=== PATIENT | female | born 1970 | race Hispanic/Latino ===

== ENCOUNTER 2023-09-19 11:20 | Emergency (ER) | payer OTHER, SELFPAY ==
--- OUTSIDE RECORDS SUMMARY | 2023-09-19 11:26 | XMS REPORT | Continuity of Care Document ---
Author Name Unknown Address [address] [place] [address] [facility] [address] [place] [address] Care Team Providers Care Classics Professor Name Role Phone NO, PCP Primary Care Physician Unavailab BYRON Olsen Attending Clinician Unavailable JOSE LUIS BOWLING Attending Clinician UnavailJose Luis Castañeda Attending Clinician [phone] Juani Flores MD Attending Clinician [phone] Soumya Schaeffer LVN Attending Clinician [phone] Juani Leal Attending Clinician [phone] Juan Amaya MD Attending Clinician [phone] JUAN AMAYA Attending Clinician Unavailable Ros Moore MD Attending Clinician [phone] Delfin Singleton Attending Clinician Unavailable Juan Amaya MD Admitting Clinician [phone] JUAN AMAYA Admitting Clinician Unavailable Payers Payer Name Policy Type Policy Number Effective Date Expirati on Date Source Problems Condition Name Condition Details Condition Category Status Onset Date Resolution Date Last Treatment Date Treating Clinician Comments Source Complicate d UTI (urinary tract infection) Complicate d UTI (urinary tract infection) Disease Active 2- 00:00: 00 [facility] Abnormal uterine bleeding (AUB) Abnormal uterine bleeding (AUB) Disease Active 2- 00:00: 00 [facility] Anemia, unspecifie d type Anemia, unspecifie d type Disease Active 2- 00:00: 00 [facility] Fall Problem Active [facility] Sprain of right wrist Problem Active [facility] Allergies, Adverse Reactions, Alerts Allergy Name Allergy Type Status Severity Reaction(s) Onset Date Inactive Date Treating Clinician Comments Source Penicill in Allergy to substanc e Active Severe ANGIO EDEMA 2 00:00: 00 [facility] Penicill ins Propensi ty to adverse reaction s Active Anaphylaxis 03-19 00:00: 00 [facility] Penicill ins Propensi ty to adverse reaction s Active Anaphylaxis 03-19 00:00: 00 [facility] PENICILL INS Drug Class Active Anaphylaxis 03-19 00:00: 00 [facility] Penicill ins DA Active [facility] NO KNOWN ALLERGIE S Drug Class Active [facility] Social History Social Habit Start Date Stop Date Quantity Comments Source History of tobacco use [facility] Exposure to SARS-CoV-2 (event) 2022-01-25 00:00:00 2022-02-04 21:00:00 Not sure [facility] Alcohol intake 2021-03-24 00:00:00 2021-03-24 00:00:00 Ex-drinker (finding) [facility] Tobacco use and exposure 2021-03-20 00:00:00 2021-03-20 00:00:00 Smokeless tobacco non-user [facility] Sex Assigned At 1970 00:00:00 1970 00:00:00 Female [facility] Smoking Status Start Date Stop Date Source Never smoked tobacco (finding) [facility] Medications Ordered Medication Name Filled Medication Name Start Date Stop Date Current Medication? Ordering Clinician Indication Dosage Frequency Signature (SIG) Comments Components Source Hydrocodone Bit/Acetami nophen (Hydrocodon -Acetaminop h 7.5-325) 7.5 Mg-325 Mg TABLET Hydrocodone Bit/Acetami nophen (Hydrocodon -Acetaminop h 7.5-325) 7.5 Mg-325 Mg TABLET 03-23 23:04: 00 Yes 1 Every 6 Hours as needed for Pain [facility] Diclofenac Sodium Diclofenac Sodium 03-23 23:01: 00 Yes 1 Three Times Daily With Meals for Pain/Infla mmation [facility] erythromyci n 5 mg/gram (0.5 %) ophthalmic ointment 2021-02 00:00: 00 02-12 05:59 :00 No [id number] .5[in_u s] Place 0.5 Inches in both eyes in the morning and 0.5 Inches at noon and 0.5 Inches in the evening. Do all this for 7 days. Continue until you follow up with eye doctor. [facility] metroNIDAZO LE 500 mg tablet 03-25 00:00: 00 03-26 05:59 :00 No [id number] 2000mg Take 4 tablets by mouth once now for 1 dose. Do not drink alcohol while taking this medication . [facility] potassium chloride in water 10 mEq/100 mL RTU 10 mEq 03-22 17:00: 00 03-22 19:13 :00 No 10meq 10 mEq, IV Piggyback, Q1H, 2 doses, First dose on 03/22/21 at 1100, Last dose on 03/22/21 at 1200, Administer over 60 Minutes, 100 mL [facility] KCL (KLOR-CON M20) tablet 40 mEq 03-22 15:45: 00 03-23 00:00 :06 No 40meq 40 mEq, Oral, BID, First dose on 03/22/21 at 0945, Until Discontinu ed, Routine [facility] ferrous sulfate 325 mg (65 mg iron) tablet 03-22 00:00: 00 04-22 04:59 :00 No [id number] 325mg Take 1 tablet by mouth 2 (two) times daily for 30 days. [facility] lactobacill us acidophilus 03-22 00:00: 00 04-02 05:59 :00 No [id number] 1mg Take 2 tablets by mouth 2 (two) times daily for 10 days. [facility] levoFLOXaci n (LEVAQUIN) 750 mg tablet 03-22 00:00: 00 03-26 05:59 :00 No [id number] 750mg Take 1 tablet by mouth every 24 (twenty-fo ur) hours for 3 days. [facility] water for irrigation irrigation solution 03-21 20:26: 00 03-21 22:44 :27 No PRN, Starting on Wed03/21/21 at 1426, Until Wed03/21/21 at 1644, Routine, Intra-op [facility] simethicone (GAS RELIEF (SIMETHICON E)) 40 mg/0.6 mL drops 03-21 20:26: 00 03-21 22:44 :27 No PRN, Starting on Wed03/21/21 at 1426, Until Wed03/21/21 at 1644, Routine, Intra-op [facility] sodium phosphates (READY-TO-U SE ENEMA) 19-7 gram/118 mL enema 1 Enema 03-21 15:45: 00 03-21 15:01 :00 No 1{enema } 1 Enema, Rectal, ONCE, 1 dose, On Wed03/21/21 at 0945, Routine [facility] sodium phosphate 30 mmol in NaCl 0.9% (NS) 250 mL piggyback 03-21 14:45: 00 03-22 02:44 :00 No 30mmol 30 mmol, IV Piggyback, ONCE, 1 dose, On Wed03/21/21 at 0845, Administer over 4 Hours, 250 mL [facility] iron sucrose (VENOFER) 300 mg in NaCl 0.9% (NS) 250 mL infusion 03-21 14:45: 00 03-22 01:15 :00 No 300mg 300 mg, IV Infusion, ONCE, Administer over 2.5 Hours, On Wed03/21/21 at 0845, For 1 dose [facility] diphenhydrA MINE (BENADRYL) injection 25 mg 03-21 14:00: 00 03-21 15:54 :00 No 25mg 25 mg, Slow IV Push, ONCE, 1 dose, On Wed03/21/21 at 0800, Routine [facility] diphenhydrA MINE (BENADRYL) tablet 25 mg 03-21 05:49: 59 03-23 00:00 :06 No 25mg 25 mg, Oral, Q4HPRN, Starting on Alycia 03/20/21 at 2349, Until 03/22/21 at 1800, Routine, Itching [facility] levoFLOXaci n in D5W (LEVAQUIN) 750 mg/150 mL Piggyback 750 mg 03-21 05:00: 00 03-23 00:00 :06 No 750mg 750 mg, IV Piggyback, Q24H ABX, First dose on Wed03/20/21 at 2300, Until Discontinu ed, Administer over 90 Minutes, 150 mL
Reas on for Anti-Infec tive: Empiric Therapy for Suspected Infection& lt;br>Empi zack Therapy Site: Urine
D uration of therapy: 7 days [facility] bisacodyL (DULCOLAX) tablet 10 mg 03-21 02:00: 00 03-21 03:00 :00 No 10mg 10 mg, Oral, ONCE AT 1999, 1 dose, On Wed03/20/21 at 2000, Routine [facility] bisacodyL (DULCOLAX) tablet 10 mg 03-20 22:45: 00 03-20 23:17 :00 No 10mg 10 mg, Oral, ONCE, 1 dose, On Alycia 03/20/21 at 1645, Routine [facility] peg-electro lyte soln (GOLYTELY) 236-22.74-6 .74 -5.86 gram solution 4,000 mL 03-20 22:45: 00 03-20 23:17 :00 No 4000mL 4,000 mL, Oral, ONCE, 1 dose, On Alycia 03/20/21 at 1645, Routine [facility] iohexol (OMNIPAQUE 350 BULK-150 mL) injection 120 mL 03-20 16:30: 00 03-20 16:30 :00 No [id number] 100 120mL 120 mL, Intravenou s, ONCE, 1 dose, On Alycia 03/20/21 at 1030, Routine [facility] diphenhydrA MINE (BENADRYL) injection 50 mg 03-20 15:45: 00 03-20 14:56 :00 No 50mg 50 mg, Slow IV Push, ONCE, 1 dose, On Alycia 03/20/21 at 0945, Routine [facility] polyethylen e glycol 3350 powder 17 g 03-20 15:00: 00 03-22 14:40 :00 No 17g 17 g, Oral, DAILY, 2 doses, First dose on Wed03/20/21 at 0900, Last dose on Wed03/21/21 at 0900, Routine [facility] pantoprazol e (PROTONIX) injection 40 mg 03-20 14:30: 00 03-23 00:00 :06 No 40mg 40 mg, Slow IV Push, Q24H, First dose on Alycia 03/20/21 at 0830, Until Discontinu ed [facility] NaCl 0.9% (NS) IV infusion 1,000 mL 03-20 14:15: 00 03-23 00:00 :06 No 1000mL at 100 mL/hr, IV Infusion, CONTINUOUS , Starting on Alycia 03/20/21 at 0815, Until 03/22/21 at 1800, Routine [facility] sennosides (SENOKOT) tablet 8.6 mg 10 14:00: 00 03-23 00:00 :06 No 8.6mg 8.6 mg, Oral, BID, First dose on Alycia 03/20/21 at 0800, Until Discontinu ed, [facility] acidophilus [facility] 1 mg 03-20 14:00: 00 03-23 00:00 :06 No 1mg 1 mg, Oral, BID, First dose on Alycia 03/20/21 at 0800, Until Discontinu ed, Routine [facility] docusate (COLACE) capsule 100 mg 03-20 14:00: 00 03-23 00:00 :06 No 100mg 100 mg, Oral, BID, First dose on Alycia 03/20/21 at 0800, Until Discontinu ed, Routine [facility] levoFLOXaci n in D5W (LEVAQUIN) 250 mg/50 mL Piggyback 250 mg 03-20 09:30: 00 03-20 11:34 :00 No 250mg 250 mg, IV Piggyback, ONCE, 1 dose, On Alycia 03/20/21 at 0330, Administer over 60 Minutes, 50 mL
Reas on for Anti-Infec tive: Empiric Therapy for Suspected Infection< br>Empiric Therapy Site: Urine
D uration of therapy: 7 days [facility] ondansetron (ZOFRAN (PF)) injection 4 mg 03-20 08:25: 32 03-23 00:00 :06 No 4mg 4 mg, Slow IV Push, Q6HPRN, Starting on Alycia 03/20/21 at 0225, Until 03/22/21 at 1800, Routine, Nausea and Vomiting (N/V) [facility] levoFLOXaci n in D5W (LEVAQUIN) 500 mg/100 mL Piggyback 500 mg 03-20 05:00: 00 03-20 05:03 :00 No 500mg 500 mg, IV Piggyback, ONCE, 1 dose, On Wed03/19/21 at 2300, Administer over 60 Minutes, 100 mL
Reas on for Anti-Infec tive: Documented Infection< br>Documen dasha Infection Site: Urine
D uration of Therapy: Other (see Comments) [facility] Vital Signs Vital Name Observation Time Observation Value Comments S ource Oxygen saturation by Pulse oximetry 2022-03-23 23:27:00 100 /min [facility] BP Diastolic 2022-03-23 23:27:00 81 mm[Hg] [facility] Height 2022-03-23 21:38:00 157.179664 cm [facility] Weight 2022-03-23 21:38:00 68.919176 kg [facility] BMI (Body Mass Index) 2022-03-23 21:38:00 27.4 kg/m2 [facility] Systolic blood pressure 2022-02-05 03:03:00 137 mm[Hg] [facility] Diastolic blood pressure 2022-02-05 03:03:00 89 mm[Hg] [facility] Heart rate 2022-02-05 03:03:00 67 /min [facility] Body temperature 2022-02-05 03:03:00 36.61 Elle [facility] Respiratory rate 2022-02-05 03:03:00 18 /min [facility] Body weight 2022-02-05 03:03:00 70.308 kg [facility] BMI 2022-02-05 03:03:00 28.35 kg/m2 [facility] Oxygen saturation in Arterial blood by Pulse oximetry 2022-02-05 03:03:00 99 /min [facility] Oxygen saturation in Arterial blood by Pulse oximetry 2021-03-22 17:10:00 98 /min [facility] Systolic blood pressure 2021-03-22 17:10:00 110 mm[Hg] [facility] Diastolic blood pressure 2021-03-22 17:10:00 67 mm[Hg] [facility] Heart rate 2021-03-22 17:10:00 65 /min [facility] Body temperature 2021-03-22 17:10:00 36.61 Elle [facility] Respiratory rate 2021-03-22 17:10:00 16 /min [facility] Body weight 2021-03-21 09:21:00 69.4 kg [facility] BMI 2021-03-21 09:21:00 27.98 kg/m2 [facility] Body height 2021-03-20 08:30:00 157.5 cm [facility] Systolic blood pressure 2021-03-21 19:01:00 111 mm[Hg] [facility] Diastolic blood pressure 2021-03-21 19:01:00 67 mm[Hg] [facility] Heart rate 2021-03-21 19:01:00 66 /min [facility] Body temperature 2021-03-21 19:01:00 36.78 Elle [facility] Respiratory rate 2021-03-21 19:01:00 18 /min [facility] Oxygen saturation in Arterial blood by Pulse oximetry 2021-03-21 19:01:00 99 /min [facility] Body weight 2021-03-21 09:21:00 69.4 kg [facility] BMI 2021-03-21 09:21:00 27.98 kg/m2 [facility] Body height 2021-03-20 08:30:00 157.5 cm [facility] Procedures Procedure Date / Time Performed Performing Clinician Source CONSENT/REFUSAL FOR DIAGNOSI S AND TREATMENT 2022-02-05 03:03:35 Doctor Unassigned, [place] [facility] MAGNESIUM 2021-03-22 14:53:00 Elissa [facility] BASIC METABOLIC PANEL (NA, K , CL, CO2, GLUCOSE, BUN, CREATININE, CA) 2021-03-22 14:53:00 Elissa [facility] CBC WITHOUT DIFF 2021-03-22 14:53:00 Elissa [facility] MAGNESIUM 2021-03-22 14:53:00 Elissa [facility] BASIC METABOLIC PANEL (NA, K , CL, CO2, GLUCOSE, BUN, CREATININE, CA) 2021-03-22 14:53:00 [facility] 2021-03-22 14:53:00 [facility] HORMONE 2021-03-22 09:06:00 [facility] BASIC METABOLIC PANEL (NA, K , CL, CO2, GLUCOSE, BUN, CREATININE, CA) 2021-03-22 09:06:00 [facility] 2021-03-22 09:06:00 [facility] THYROID [facility]IMULATING HORMONE 2021-03-22 09:06:00 [facility] BASIC METABOLIC PANEL (NA, K , CL, CO2, GLUCOSE, BUN, CREATININE, CA) 2021-03-22 09:06:00 [facility] WITH DIFF 2021-03-22 09:06:00 [facility] WITH DIFF 2021-03-21 22:52:00 Meryl [facility] PROTHROMBIN TIME / INR 2021-03-21 22:52:00 MelodyiciSky [facility] FIBRINOGEN 2021-03-21 22:52:00 Meryl [facility] CBC WITH DIFF 2021-03-21 22:52:00 MelodyiciSky [facility] PROTHROMBIN TIME / INR 2021-03-21 22:52:00 MelodyiciSky [facility] FIBRINOGEN 2021-03-21 22:52:00 Meryl [facility] PREPARE PACKED RBC 2021-03-21 20:49:47 Nelson Bowers [facility] COLONOSCOPY (ENDO) 2021-03-21 20:46:03 [facility] COLONOSCOPY (ENDO) 2021-03-21 20:46:03 [facility] EGD (ENDO) 2021-03-21 20:11:29 [facility] EGD (ENDO) 2021-03-21 20:11:29 [facility] ESOPHAGOGASTRODUODENOSCOPY 2021-03-21 20:11:00 Ros Moore [facility] COLONOSCOPY 2021-03-21 20:11:00 [facility]AM 2021-03-21 18:31:00 Juani Flores [facility] TRANSFUSE PACKED RBC 2021-03-21 16:27:00 Elissa [facility] TRANSFUSE PACKED RBC 2021-03-21 16:27:00 Elissa [facility] PREPARE PACKED RBC 2021-03-21 16:13:59 [facility] PREPARE PACKED RBC 2021-03-21 16:13:59 [facility] BASIC METABOLIC PANEL (NA, K , CL, CO2, GLUCOSE, BUN, CREATININE, CA) 2021-03-21 10:02:00 [facility] CBC WITH DIFF 2021-03-21 10:02:00 [facility] BASIC METABOLIC PANEL (NA, K , CL, CO2, GLUCOSE, BUN, CREATININE, CA) 2021-03-21 10:02:00 [facility] CBC WITH DIFF 2021-03-21 10:02:00 Cameron Varela [facility] OCCULT (GUAIAC) BLOOD 2021-03-21 03:01:00 [facility] OCCULT (GUAIAC) BLOOD 2021-03-21 03:01:00 [facility] CBC WITH DIFF 2021-03-20 23:24:00 [facility] CBC WITH DIFF 2021-03-20 23:24:00 [facility] TRXN WORKUP-ABBREVIATED 2021-03-20 19:52:27 [facility] TRXN WORKUP-ABBREVIATED 2021-03-20 19:52:27 [facility] TRANSVAGINAL 2021-03-20 17:00:11 [facility] US PELVIS COMPLETE WITH TRANSVAGINAL 2021-03-20 17:00:11 [facility] CT ABDOMEN PELVIS W CONTRAST 2021-03-20 16:23:17 [facility] CT ABDOMEN PELVIS W CONTRAST 2021-03-20 16:23:17 [facility] URINALYSIS 2021-03-20 15:00:00 [facility] URINALYSIS 2021-03-20 15:00:00 [facility] TRANSFUSE PACKED RBC 2021-03-20 11:02:00 [facility] TRANSFUSE PACKED RBC 2021-03-20 11:02:00 [facility] BLOOD CULTURE SCREEN 2021-03-20 10:08:00 [facility] BLOOD CULTURE SCREEN 2021-03-20 10:08:00 [facility] BLOOD CULTURE SCREEN 2021-03-20 09:59:00 [facility] BLOOD CULTURE SCREEN 2021-03-20 09:59:00 [facility] SEDIMENTATION RATE 2021-03-20 09:15:00 [facility] PROTHROMBIN TIME / INR 2021-03-20 09:15:00 [facility] SEDIMENTATION RATE 2021-03-20 09:15:00 [facility] PROTHROMBIN TIME / INR 2021-03-20 09:15:00 [facility] URINE CULTURE 2021-03-20 09:06:00 [facility] URINE CULTURE 2021-03-20 09:06:00 [facility] PHOSPHORUS 2021-03-20 09:00:00 [facility] MAGNESIUM 2021-03-20 09:00:00 [facility] FERRITIN SERUM 2021-03-20 09:00:00 [facility] PROLACTIN 2021-03-20 09:00:00 [facility] VITAMIN B12, LEVEL 2021-03-20 09:00:00 [facility] FOLATE 2021-03-20 09:00:00 [facility] LIPID PANEL ([id number])(TOTAL CHOLESTEROL, TRIGLYCERIDES, HDL) 2021-03-20 09:00:00 [facility] VITAMIN D, 25-OH 2021-03-20 09:00:00 [facility] PROCALCITONIN 2021-03-20 09:00:00 [facility] PHOSPHORUS 2021-03-20 09:00:00 [facility] MAGNESIUM 2021-03-20 09:00:00 [facility] FERRITIN SERUM 2021-03-20 09:00:00 [facility] PROLACTIN 2021-03-20 09:00:00 [facility] VITAMIN B12, LEVEL 2021-03-20 09:00:00 [facility] FOLATE 2021-03-20 09:00:00 [facility] LIPID PANEL ([id number])(TOTAL CHOLESTEROL, TRIGLYCERIDES, HDL) 2021-03-20 09:00:00 [facility] VITAMIN D, 25-OH 2021-03-20 09:00:00 [facility] PROCALCITONIN 2021-03-20 09:00:00 [facility] CRITICAL CARE 2021-03-20 05:00:00 Juani Pang [facility] CRITICAL CARE 2021-03-20 05:00:00 Juani Pang [facility] TRANSFUSE PACKED RBC 2021-03-20 04:43:00 Juani Pang [facility] TRANSFUSE PACKED RBC 2021-03-20 04:43:00 Juani Pang [facility] PREPARE PACKED RBC 2021-03-20 04:36:09 Juani Pang [facility] PREPARE PACKED RBC 2021-03-20 04:36:09 Juani Pang [facility] COVID-19 (ID NOW RAPID TESTING) 04:03:00 Juani Pang [facility] LAB ONLY COVID INTERPRETATION 2021-03-20 04:03:00 Juani Pang [facility] COVID-19 (ID NOW RAPID TESTING) 04:03:00 Juani Pang [facility] LAB ONLY COVID INTERPRETATION 2021-03-20 04:03:00 Juani Pang [facility] HB ECG ROUTINE & RHYTHM STRIP 2021-03-20 03:56:17 Juani Pang [facility] HB ECG ROUTINE & RHYTHM STRIP 2021-03-20 03:56:17 Juani Pang [facility] HB ABO GROUPING 2021-03-20 03:45:00 Juani Pang [facility] HB ABO GROUPING 2021-03-20 03:45:00 Juani Pang [facility] POCT TEST 2021-03-20 02:23:00 Juani Pang [facility] POCT TEST 2021-03-20 02:23:00 Juani Pang [facility] LIPASE 2021-03-20 02:22:00 Juani Pang [facility] TROPONIN I 2021-03-20 02:22:00 Juani Pang [facility] COMP. METABOLIC PANEL ([id number]) 2021-03-20 02:22:00 Juani Pang [facility] IRON PANEL 2021-03-20 02:22:00 Juani Pang [facility] CBC WITH DIFF 2021-03-20 02:22:00 Juani Pang [facility] GLYCOSYLATED HEMOGLOBIN (A1C) 2021-03-20 02:22:00 Juan Amaya [facility] LIPASE 2021-03-20 02:22:00 Juani Pang [facility] TROPONIN I 2021-03-20 02:22:00 Juani Pang [facility] COMP. METABOLIC PANEL ([id number]) 2021-03-20 02:22:00 Juani Pang [facility] IRON PANEL 2021-03-20 02:22:00 Juani Pang [facility] CBC WITH DIFF 2021-03-20 02:22:00 Juani Pang [facility] GLYCOSYLATED HEMOGLOBIN (A1C) 2021-03-20 02:22:00 Juan Amaya [facility] URINALYSIS 2021-03-20 02:18:00 Juani Pang [facility] URINALYSIS 2021-03-20 02:18:00 Juani Pang [facility] XR KUB 2021-03-20 01:45:48 Juani Pang [facility] XR KUB 2021-03-20 01:45:48 Juani Pang [facility] NOTICE OF PRIVACY PRACTICES 2021-03-20 00:42:42 Doctor Unassigned, [place] [facility] NOTICE OF PRIVACY PRACTICES 2021-03-20 00:42:42 Doctor Unassigned, [place] [facility] CONSENT/REFUSAL FOR DIAGNOSI S AND TREATMENT 2021-03-20 00:42:23 Doctor Unassigned, [place] [facility] CONSENT/REFUSAL FOR DIAGNOSI S AND TREATMENT 2021-03-20 00:42:23 Doctor Unassigned, [place] [facility] HOSPITAL ADMISSION 2021-03-19 06:01:00 Doctor Unassigned, [place] [facility] Plan of Care Planned Activity Planned Date Details Comments Source Instructions Wrist Sprain, Adult [facility] Encounters Start Date/Time End Date/Time Encounter Type Admission Type Attending [facility] Care Facility Care Department Encounter ID Source 2021-11-06 14:05:24 Outpatient [id number] 2022-03-23 21:34:00 2022-03-23 23:27:00 Departed Emergency Room 1 BYRON HUSSEIN [facility] [id number] [facility] 2022-03-23 20:34:00 2022-03-23 22:27:00 Emergency [facility] [id number] [facility] 2022-02-04 21:04:00 2022-02-04 22:07:00 Emergency X JOSE LUIS BOWLING [facility] [id number] [facility] 2022-02-04 21:04:00 2022-02-04 22:07:00 Emergency AlexisJos eLuis [facility] 1.840.114 350.1.13.10 4.2.7.2.686 [id number] [facility] 2021-03-25 00:00:00 2021-03-25 00:00:00 Telephone Juani Flores [facility] 1.2.840.114 350.1.13.10 4.2.7.2.686 [id number] [facility] 2021-03-25 00:00:00 2021-03-25 00:00:00 Case Management Juani Flores [facility] 1.2.840.114 350.1.13.10 4.2.7.2.686 [id number] [facility] 2021-03-24 00:00:00 2021-03-24 00:00:00 Transition of Care Soumya Schaeffer 1.2.840.114 350.1.13.10 4.2.7.2.686 [id number] [facility] 2021-03-19 18:47:00 2021-03-22 15:15:00 Hospital Encounter Juani Pang Adnan [facility] 1.2.840.114 350.1.13.10 4.2.7.2.686 [id number] [id number] [facility] 2021-03-19 18:47:00 2021-03-22 15:15:00 Inpatient X JUAN AMA[facility] [id number] [facility] 2021-03-21 13:53:00 2021-03-21 15:06:00 Surgery [facility] 1.2.840.114 350.1.13.10 4.2.7.2.686 [id number] [facility] 2019-12-27 00:00:00 2019-12-27 00:00:00 Outpatient Delfin Singleton [facility] [id number] [facility] Results Test Description Test Time Test Comments Results Resul t Comments Source WRIST 3VW RT - HOPD 2022-03-23 21:19:[address] [facility] CENTERName: ANTONI BHANDARI : 1970 Sex: F [place] [address] Patient Name: ANTONI BHANDARI MR #: [id number] : 1970 Age/Sex: 51/F Req #: [id number] Adm Physician: Ordered by: BYRON HUSSEIN MD Report #: [id number] Location: [facility] Room/Bed: Report: Diagnostic Imaging Report Status: Signed Procedure: [id number] HOPD/WRIST 3VW RT - HOPD Exam Date: 03/23/22 Exam Time: 2100 EXAMINATION: WRIST 3VW RT - HOPD INDICATION: Fall COMPARISON: None FINDINGS: Radiographs of the right wrist demonstrate no acute fracture or dislocation. Alignment is anatomic. Unremarkable soft tissues. IMPRESSION: No acute osseous injury Signed by: Anastasia Braun on 03/23/2022 9:19 PM Dictated By: ANASTASIA BRAUN MD 20 Transcribed By: ALIS on 03/23/222118 COPY TO: BYRON HUSSEIN MD [facility] WITHOUT [id number] 16:23:16* Test Item Value Reference Range Interpretation Comme nts WBC (test code = 6690-2) See_Comment L [Automated messa ge] The system which generated this result transmitted reference range: 4.30 - 11.10 10*3/?L. The reference range was not used to interpret this result as normal/abnormal. RBC (test code = 789-8) See_Comment L [Automated message] The system which generated this result transmitted reference range: 3.93 - 5.25 10*6/?L. The reference range was not used to interpret this result as normal/abnormal. HGB (test code = 718-7) 7.0 g/dL 11.6-15.0 L HCT (test code = 4544-3) 23.9 % 35.7-45.2 L MCH (test code = 785-6) 21.5 pg 25.9-32.8 L MCV (test code = 787-2) 73.5 fL 80.6-95.5 L MCHC (test code = 786-4) 29.3 g/dL 31.6-35.1 L PLT (test code = 777-3) See_Comment L [Automated message] The system which generated this result transmitted reference range: 166 - 358 10*3/?L. The reference range was not used to interpret this result as normal/abnormal. MPV (test code = 44221-0) Not Measured RDW-CV (test code = 788-0) 23.1 % 12.0-15.5 H RDW-SD (test code = 52411-6) 59.8 fL 39.0-49.9 H NRBC x10^3 (test code = 4755474107) <0.01 See_Comment [Automated messa ge] The system which generated this result transmitted reference range: 10*3/?L. The reference range was not used to interpret this result as normal/abnormal. NRBC/100 WBC (test code = 0291885604) See_Comment [Automated [employer] ge] The system which generated this result transmitted reference range: 0.0 - 10.0 /100 WBCs. The reference range was not used to interpret this result as normal/abnormal. IPF % (test code = 4302580497) 6.8 % 1.3-7.7 Platelet count measured by fluorescence method. Lab Interpretation (test code = 32681-3) [facility]* Test Item Value Reference Range Interpretation Comme nts MAGNESIUM (test code = 8100560936) 2.0 mg/dL 1.7-2.4 Lab Interpretation (test cod e = 62472-2) Normal [facility]2022-02-12 15:33:53* Test Item Value Reference Range Interpretation Comme nts MAGNESIUM (test code = 9514989503) 2.0 mg/dL 1.7-2.4 Lab Interpretation (test cod e = 29443-9) Normal [facility] METABOLIC PANEL (NA, K, CL, CO2, GLUCOSE, BUN, CREATININE, CA)2021-03-22 15:33:33* Test Item Value Reference Range Interpretation Comme nts NA (test code = 2853434653) 137 mmol/L 135-145 K (test code = 3246747481) 3.0 mmol/L 3.5-5.0 L CL (test code = 2253779276) 112 mmol/L 98-108 H CO2 TOTAL (test code = 4068210787) 23 mmol/L 23-31 AGAP (test code = 2691842147) 2-16 BUN (test code = 8660247249) 4 mg/dL 7-23 L GLUCOSE (test code = 9785416098) 141 mg/dL 70-110 H CREATININE (test code = 1777091501) 0.50 mg/dL 0.50-1.04 CALCIUM (test code = 9890783607) 8.0 mg/dL 8.6-10.6 L eGFR (test code = 4136298455) mL/min/1.73m2 BARTOLOME (test code = BARTOLOME) Association of Glomerular Filtration Rate (GFR) and Staging of Kidney Disease* + --+ --+ ------+| GFR (mL/min/1.73 m2) ?| With Kidney Damage ?| ?Without Kidney Damage+ --------+ --------+ +| ?>90 ?| ?Stage one ?| ? Normal ?+ ---+ ---+ -------+| ?60-89 ?| ?Stage two ?| ? Decreased GFR ? + --+ --+ ------+| ?30-59 ?| ?Stage three ?| ? Stage three ? + --+ --+ ------+| ?15-29 ?| ?Stage four ? | ? Stage four ?+ ---+ ---+ -------+| ?<15 (or dialysis) ? ?| ?Stage five ? | ? Stage five ?+ ---+ ---+ -------+ *Each stage assumes the associated GFR level has been in effect for at least three months. ?Stages 1 to 5, with or without kidney disease, indicate chronic kidney disease. Notes: Determination of stages one and two (with eGFR >59mL/min/1.73 m2) requires estimation of kidney damage for at least three months as defined by structural or functional abnormalities of the kidney, manifested by either:Pathological abnormalities or Markers of kidney damage (including abnormalities in the composition of the blood or urine or abnormalities in imaging tests). Lab Interpretation (test code = 81614-1) Abnormal [facility] METABOLIC PANEL (NA, K, CL, CO2, GLUCOSE, BUN, CREATININE, CA)2021-03-22 15:33:33* Test Item Value Reference Range Interpretation Comme nts NA (test code = 6565050990) 137 mmol/L 135-145 K (test code = 7450359346) 3.0 mmol/L 3.5-5.0 L CL (test code = 2847411732) 112 mmol/L 98-108 H CO2 TOTAL (test code = 6822810890) 23 mmol/L 23-31 AGAP (test code = 7557068916) 2-16 BUN (test code = 0686239273) 4 mg/dL 7-23 L GLUCOSE (test code = 9160853024) 141 mg/dL 70-110 H CREATININE (test code = 4175120699) 0.50 mg/dL 0.50-1.04 CALCIUM (test code = 3056046105) 8.0 mg/dL 8.6-10.6 L eGFR (test code = 9451297231) mL/min/1.73m2 BARTOLOME (test code = BARTOLOME) Association of Glomerular Filtration Rate (GFR) and Staging of Kidney Disease* + --+ --+ ------+| GFR (mL/min/1.73 m2) ?| With Kidney Damage ?| ?Without Kidney Damage+ --------+ --------+ +| ?>90 ?| ?Stage one ?| ? Normal ?+ ---+ ---+ -------+| ?60-89 ?| ?Stage two ?| ? Decreased GFR ? + --+ --+ ------+| ?30-59 ?| ?Stage three ?| ? Stage three ? + --+ --+ ------+| ?15-29 ?| ?Stage four ? | ? Stage four ?+ ---+ ---+ -------+| ?<15 (or dialysis) ? ?| ?Stage five ? | ? Stage five ?+ ---+ ---+ -------+ *Each stage assumes the associated GFR level has been in effect for at least three months. ?Stages 1 to 5, with or without kidney disease, indicate chronic kidney disease. Notes: Determination of stages one and two (with eGFR >59mL/min/1.73 m2) requires estimation of kidney damage for at least three months as defined by structural or functional abnormalities of the kidney, manifested by either:Pathological abnormalities or Markers of kidney damage (including abnormalities in the composition of the blood or urine or abnormalities in imaging tests). Lab Interpretation (test code = 71761-0) [facility] [id number] 12:48:23 * Test Item Value Reference Range Interpretation Comme nts TSH (test code = 3548062676) See_Comment [Automated messa ge] The system which generated this result transmitted reference range: 0.45 - 4.70 mIU/L. The reference range was not used to interpret this result as normal/abnormal. Lab Interpretation (test code = 95234-4) Normal [facility] [id number] 12:48:23 * Test Item Value Reference Range Interpretation Comme nts TSH (test code = 7780743642) See_Comment [Automated messa ge] The system which generated this result transmitted reference range: 0.45 - 4.70 mIU/L. The reference range was not used to interpret this result as normal/abnormal. Lab Interpretation (test code = 91904-3) Normal [facility] WITH [id number] 12:00:37* Test Item Value Reference Range Interpretation Comme nts WBC (test code = 6690-2) See_Comment L [Automated messa ge] The system which generated this result transmitted reference range: 4.30 - 11.10 10*3/?L. The reference range was not used to interpret this result as normal/abnormal. RBC (test code = 789-8) See_Comment L [Automated [employer] ge] The system which generated this result transmitted reference range: 3.93 - 5.25 10*6/?L. The reference range was not used to interpret this result as normal/abnormal. HGB (test code = 718-7) 6.4 g/dL 11.6-15.0 L HCT (test code = 4544-3) 22.0 % 35.7-45.2 L MCV (test code = 787-2) 73.8 fL 80.6-95.5 L MCH (test code = 785-6) 21.5 pg 25.9-32.8 L MCHC (test code = 786-4) 29.1 g/dL 31.6-35.1 L RDW-SD (test code = 95992-4) 60.1 fL 39.0-49.9 H RDW-CV (test code = 788-0) 23.0 % 12.0-15.5 H PLT (test code = 777-3) See_Comment L [Automated [employer] ge] The system which generated this result transmitted reference range: 166 - 358 10*3/?L. The reference range was not used to interpret this result as normal/abnormal. MPV (test code = 66164-0) Not Measured NRBC/100 WBC (test code = 0762264961) See_Comment [Automated [employer] ssage] The system which generated this result transmitted reference range: 0.0 - 10.0 /100 WBCs. The reference range was not used to interpret this result as normal/abnormal. NRBC x10^3 (test code = 0898422304) <0.01 See_Comment [Automated [employer] ge] The system which generated this result transmitted reference range: 10*3/?L. The reference range was not used to interpret this result as normal/abnormal. GRAN MAT (NEUT) % (test code = 770-8) 64.4 % IMM GRAN % (test code = 2148050822) 0.80 % LYMPH % (test code = 736-9) 22.1 % MONO % (test code = 5905-5) 9.6 % EOS % (test code = 713-8) 2.0 % BASO % (test code = 706-2) 1.1 % GRAN MAT x10^3(ANC) (test code = 6618185786) 2.27 10*3/uL 1.88-7.09 IMM GRAN x10^3 (test code = 7014016480) 0.03 10*3/uL 0.00-0.06 LYMPH x10^3 (test code = 731-0) 0.78 10*3/uL 1.32-3.29 L MONO x10^3 (test code = 742-7) 0.34 10*3/uL 0.33-0.92 EOS x10^3 (test code = 711-2) 0.07 10*3/uL 0.03-0.39 BASO x10^3 (test code = 704-7) 0.04 10*3/uL 0.01-0.07 Lab Interpretation (test code = 17522-4) Abnormal [facility] WITH [id number] 12:00:37* Test Item Value Reference Range Interpretation Comme nts WBC (test code = 6690-2) See_Comment L [Automated messa ge] The system which generated this result transmitted reference range: 4.30 - 11.10 10*3/?L. The reference range was not used to interpret this result as normal/abnormal. RBC (test code = 789-8) See_Comment L [Automated messa ge] The system which generated this result transmitted reference range: 3.93 - 5.25 10*6/?L. The reference range was not used to interpret this result as normal/abnormal. HGB (test code = 718-7) 6.4 g/dL 11.6-15.0 L HCT (test code = 4544-3) 22.0 % 35.7-45.2 L MCV (test code = 787-2) 73.8 fL 80.6-95.5 L MCH (test code = 785-6) 21.5 pg 25.9-32.8 L MCHC (test code = 786-4) 29.1 g/dL 31.6-35.1 L RDW-SD (test code = 16882-8) 60.1 fL 39.0-49.9 H RDW-CV (test code = 788-0) 23.0 % 12.0-15.5 H PLT (test code = 777-3) See_Comment L [Automated messa ge] The system which generated this result transmitted reference range: 166 - 358 10*3/?L. The reference range was not used to interpret this result as normal/abnormal. MPV (test code = 26332-2) Not Measured NRBC/100 WBC (test code = 6961822734) See_Comment [Automated [employer] ssage] The system which generated this result transmitted reference range: 0.0 - 10.0 /100 WBCs. The reference range was not used to interpret this result as normal/abnormal. NRBC x10^3 (test code = 9035806880) <0.01 See_Comment [Automated messa ge] The system which generated this result transmitted reference range: 10*3/?L. The reference range was not used to interpret this result as normal/abnormal. GRAN MAT (NEUT) % (test code = 770-8) 64.4 % IMM GRAN % (test code = 7825008167) 0.80 % LYMPH % (test code = 736-9) 22.1 % MONO % (test code = 5905-5) 9.6 % EOS % (test code = 713-8) 2.0 % BASO % (test code = 706-2) 1.1 % GRAN MAT x10^3(ANC) (test code = 7468049428) 2.27 10*3/uL 1.88-7.09 IMM GRAN x10^3 (test code = 1372872898) 0.03 10*3/uL 0.00-0.06 LYMPH x10^3 (test code = 731-0) 0.78 10*3/uL 1.32-3.29 L MONO x10^3 (test code = 742-7) 0.34 10*3/uL 0.33-0.92 EOS x10^3 (test code = 711-2) 0.07 10*3/uL 0.03-0.39 BASO x10^3 (test code = 704-7) 0.04 10*3/uL 0.01-0.07 Lab Interpretation (test code = 81817-5) [facility] (NA, K, CL, CO2, GLUCOSE, BUN, CREATININE, CA)2021-03-22 11:22:36* Test Item Value Reference Range Interpretation Comme nts NA (test code = 4007129609) 138 mmol/L 135-145 K (test code = 3774251794) 3.0 mmol/L 3.5-5.0 L CL (test code = 3326257508) 112 mmol/L 98-108 H CO2 TOTAL (test code = 8229991831) 21 mmol/L 23-31 L AGAP (test code = 8036923602) 2-16 BUN (test code = 0754209048) 5 mg/dL 7-23 L GLUCOSE (test code = 5897346526) 90 mg/dL 70-110 CREATININE (test code = 2334650994) 0.49 mg/dL 0.50-1.04 L CALCIUM (test code = 0778840447) 8.2 mg/dL 8.6-10.6 L eGFR (test code = 4367644998) mL/min/1.73m2 BARTOLOME (test code = BARTOLOME) Association of Glomerular Filtration Rate (GFR) and Staging of Kidney Disease* + --+ --+ ------+| GFR (mL/min/1.73 m2) ?| With Kidney Damage ?| ?Without Kidney Damage+ --------+ --------+ +| ?>90 ?| ?Stage one ?| ? Normal ?+ ---+ ---+ -------+| ?60-89 ?| ?Stage two ?| ? Decreased GFR ? + --+ --+ ------+| ?30-59 ?| ?Stage three ?| ? Stage three ? + --+ --+ ------+| ?15-29 ?| ?Stage four ? | ? Stage four ?+ ---+ ---+ -------+| ?<15 (or dialysis) ? ?| ?Stage five ? | ? Stage five ?+ ---+ ---+ -------+ *Each stage assumes the associated GFR level has been in effect for at least three months. ?Stages 1 to 5, with or without kidney disease, indicate chronic kidney disease. Notes: Determination of stages one and two (with eGFR >59mL/min/1.73 m2) requires estimation of kidney damage for at least three months as defined by structural or functional abnormalities of the kidney, manifested by either:Pathological abnormalities or Markers of kidney damage (including abnormalities in the composition of the blood or urine or abnormalities in imaging tests). Lab Interpretation (test code = 99551-4) Abnormal [facility] METABOLIC PANEL (NA, K, CL, CO2, GLUCOSE, BUN, CREATININE, CA)2021-03-22 11:22:36* Test Item Value Reference Range Interpretation Comme nts NA (test code = 7486543392) 138 mmol/L 135-145 K (test code = 4624809147) 3.0 mmol/L 3.5-5.0 L CL (test code = 4397614759) 112 mmol/L 98-108 H CO2 TOTAL (test code = 2801394991) 21 mmol/L 23-31 L AGAP (test code = 5404631356) 2-16 BUN (test code = 5858693289) 5 mg/dL 7-23 L GLUCOSE (test code = 6450600123) 90 mg/dL 70-110 CREATININE (test code = 4280005773) 0.49 mg/dL 0.50-1.04 L CALCIUM (test code = 6057000128) 8.2 mg/dL 8.6-10.6 L eGFR (test code = 6399101967) mL/min/1.73m2 BARTOLOME (test code = BARTOLOME) Association of Glomerular Filtration Rate (GFR) and Staging of Kidney Disease* + --+ --+ ------+| GFR (mL/min/1.73 m2) ?| With Kidney Damage ?| ?Without Kidney Damage+ --------+ --------+ +| ?>90 ?| ?Stage one ?| ? Normal ?+ ---+ ---+ -------+| ?60-89 ?| ?Stage two ?| ? Decreased GFR ? + --+ --+ ------+| ?30-59 ?| ?Stage three ?| ? Stage three ? + --+ --+ ------+| ?15-29 ?| ?Stage four ? | ? Stage four ?+ ---+ ---+ -------+| ?<15 (or dialysis) ? ?| ?Stage five ? | ? Stage five ?+ ---+ ---+ -------+ *Each stage assumes the associated GFR level has been in effect for at least three months. ?Stages 1 to 5, with or without kidney disease, indicate chronic kidney disease. Notes: Determination of stages one and two (with eGFR >59mL/min/1.73 m2) requires estimation of kidney damage for at least three months as defined by structural or functional abnormalities of the kidney, manifested by either:Pathological abnormalities or Markers of kidney damage (including abnormalities in the composition of the blood or urine or abnormalities in imaging tests). Lab Interpretation (test code = 99132-7) Abnormal [facility] WITH [id number] 00:20:38* Test Item Value Reference Range Interpretation Comme nts WBC (test code = 6690-2) See_Comment L [Automated [employer]] The system which generated this result transmitted reference range: 4.30 - 11.10 10*3/?L. The reference range was not used to interpret this result as normal/abnormal. RBC (test code = 789-8) See_Comment L [Automated [employer]] The system which generated this result transmitted reference range: 3.93 - 5.25 10*6/?L. The reference range was not used to interpret this result as normal/abnormal. HGB (test code = 718-7) 7.6 g/dL 11.6-15.0 L HCT (test code = 4544-3) 26.0 % 35.7-45.2 L MCV (test code = 787-2) 74.1 fL 80.6-95.5 L MCH (test code = 785-6) 21.7 pg 25.9-32.8 L MCHC (test code = 786-4) 29.2 g/dL 31.6-35.1 L RDW-SD (test code = 73257-0) 59.7 fL 39.0-49.9 H RDW-CV (test code = 788-0) 22.6 % 12.0-15.5 H PLT (test code = 777-3) See_Comment L [Automated [employer]] The system which generated this result transmitted reference range: 166 - 358 10*3/?L. The reference range was not used to interpret this result as normal/abnormal. MPV (test code = 86365-2) Not Measured NRBC/100 WBC (test code = 8668526614) See_Comment [Automated me ssage] The system which generated this result transmitted reference range: 0.0 - 10.0 /100 WBCs. The reference range was not used to interpret this result as normal/abnormal. NRBC x10^3 (test code = 6742331781) See_Comment [Automated messa ge] The system which generated this result transmitted reference range: 10*3/?L. The reference range was not used to interpret this result as normal/abnormal. GRAN MAT (NEUT) % (test code = 770-8) 63.8 % IMM GRAN % (test code = 6624911216) 0.80 % LYMPH % (test code = 736-9) 21.4 % MONO % (test code = 5905-5) 11.0 % EOS % (test code = 713-8) 1.9 % BASO % (test code = 706-2) 1.1 % GRAN MAT x10^3(ANC) (test code = 8647548118) 2.39 10*3/uL 1.88-7.09 IMM GRAN x10^3 (test code = 8560181772) 0.03 10*3/uL 0.00-0.06 LYMPH x10^3 (test code = 731-0) 0.80 10*3/uL 1.32-3.29 L MONO x10^3 (test code = 742-7) 0.41 10*3/uL 0.33-0.92 EOS x10^3 (test code = 711-2) 0.07 10*3/uL 0.03-0.39 BASO x10^3 (test code = 704-7) 0.04 10*3/uL 0.01-0.07 Lab Interpretation (test code = 79405-5) Abnormal [facility] WITH [id number] 00:20:38* Test Item Value Reference Range Interpretation Comme nts WBC (test code = 6690-2) See_Comment L [Automated messa ge] The system which generated this result transmitted reference range: 4.30 - 11.10 10*3/?L. The reference range was not used to interpret this result as normal/abnormal. RBC (test code = 789-8) See_Comment L [Automated messa ge] The system which generated this result transmitted reference range: 3.93 - 5.25 10*6/?L. The reference range was not used to interpret this result as normal/abnormal. HGB (test code = 718-7) 7.6 g/dL 11.6-15.0 L HCT (test code = 4544-3) 26.0 % 35.7-45.2 L MCV (test code = 787-2) 74.1 fL 80.6-95.5 L MCH (test code = 785-6) 21.7 pg 25.9-32.8 L MCHC (test code = 786-4) 29.2 g/dL 31.6-35.1 L RDW-SD (test code = 74930-6) 59.7 fL 39.0-49.9 H RDW-CV (test code = 788-0) 22.6 % 12.0-15.5 H PLT (test code = 777-3) See_Comment L [Automated [employer]] The system which generated this result transmitted reference range: 166 - 358 10*3/?L. The reference range was not used to interpret this result as normal/abnormal. MPV (test code = 19923-3) Not Measured NRBC/100 WBC (test code = 5489680768) See_Comment [Automated [employer] ssage] The system which generated this result transmitted reference range: 0.0 - 10.0 /100 WBCs. The reference range was not used to interpret this result as normal/abnormal. NRBC x10^3 (test code = 0510604279) See_Comment [Automated messa ge] The system which generated this result transmitted reference range: 10*3/?L. The reference range was not used to interpret this result as normal/abnormal. GRAN MAT (NEUT) % (test code = 770-8) 63.8 % IMM GRAN % (test code = 1819304159) 0.80 % LYMPH % (test code = 736-9) 21.4 % MONO % (test code = 5905-5) 11.0 % EOS % (test code = 713-8) 1.9 % BASO % (test code = 706-2) 1.1 % GRAN MAT x10^3(ANC) (test code = 6245777068) 2.39 10*3/uL 1.88-7.09 IMM GRAN x10^3 (test code = 8551001905) 0.03 10*3/uL 0.00-0.06 LYMPH x10^3 (test code = 731-0) 0.80 10*3/uL 1.32-3.29 L MONO x10^3 (test code = 742-7) 0.41 10*3/uL 0.33-0.92 EOS x10^3 (test code = 711-2) 0.07 10*3/uL 0.03-0.39 BASO x10^3 (test code = 704-7) 0.04 10*3/uL 0.01-0.07 Lab Interpretation (test code = 85704-2) [facility] 00:19:57* Test Item Value Reference Range Interpretation Comme nts Fibrinogen (test code = 4087127696) 458 mg/dL 214-470 Lab Interpretation (test cod e = 05055-2) [facility]2022-[facility]-12 00:19:57* Test Item Value Reference Range Interpretation Comme nts Fibrinogen (test code = 7758649332) 458 mg/dL 214-470 Lab Interpretation (test cod e = 26024-9) Normal [facility] / [id number] 00:18:36* Test Item Value Reference Range Interpretation Comme nts PROTIME PATIENT (test code = 5964-2) See_Comment [Automated [employer]] The system which generated this result transmitted reference range: 12.0 - 14.7 Seconds. The reference range was not used to interpret this result as normal/abnormal. INR (test code = 6301-6) Normal INR <1.1; Warfarin Therapeutic range 2.0 to 3.0 or 2.5 to 3.5, depending upon the indications. Lab Interpretation (test code = 26685-1) Normal [facility] / [id number] 00:18:36* Test Item Value Reference Range Interpretation Comme nts PROTIME PATIENT (test code = 5964-2) See_Comment [Automated [employer]] The system which generated this result transmitted reference range: 12.0 - 14.7 Seconds. The reference range was not used to interpret this result as normal/abnormal. INR (test code = 6301-6) Normal INR <1.1; Warfarin Therapeutic range 2.0 to 3.0 or 2.5 to 3.5, depending upon the indications. Lab Interpretation (test code = 03241-6) [facility]2022-02-11 19:25:57* Test Item Value Reference Range Interpretation Comme nts PROLACTIN (test code = 1812352286) 10.3 ng/mL 2.7-19.6 Lab Interpretation (test cod e = 25605-7) Normal [facility]2022-02-11 19:25:57* Test Item Value Reference Range Interpretation Comme nts PROLACTIN (test code = 6301870679) 10.3 ng/mL 2.7-19.6 Lab Interpretation (test cod e = 37329-5) Normal [facility] WITH [id number] 13:55:22* Test Item Value Reference Range Interpretation Comme nts WBC (test code = 6690-2) See_Comment L [Automated [employer]] The system which generated this result transmitted reference range: 4.30 - 11.10 10*3/?L. The reference range was not used to interpret this result as normal/abnormal. RBC (test code = 789-8) See_Comment L [Automated [employer]] The system which generated this result transmitted reference range: 3.93 - 5.25 10*6/?L. The reference range was not used to interpret this result as normal/abnormal. HGB (test code = 718-7) 6.3 g/dL 11.6-15.0 L HCT (test code = 4544-3) 22.7 % 35.7-45.2 L MCV (test code = 787-2) 71.2 fL 80.6-95.5 L MCH (test code = 785-6) 19.7 pg 25.9-32.8 L MCHC (test code = 786-4) 27.8 g/dL 31.6-35.1 L RDW-SD (test code = 35011-3) 54.9 fL 39.0-49.9 H RDW-CV (test code = 788-0) 21.4 % 12.0-15.5 H PLT (test code = 777-3) See_Comment L [Automated [employer]] The system which generated this result transmitted reference range: 166 - 358 10*3/?L. The reference range was not used to interpret this result as normal/abnormal. MPV (test code = 96348-0) Not Measured IPF % (test code = 0147950858) 8.2 % 1.3-7.7 H Platelet count measured by fluorescence method. NRBC/100 WBC (test code = 2827178447) See_Comment [Automated [employer]] The system which generated this result transmitted reference range: 0.0 - 10.0 /100 WBCs. The reference range was not used to interpret this result as normal/abnormal. NRBC x10^3 (test code = 3449416386) <0.01 See_Comment [Automated [employer]] The system which generated this result transmitted reference range: 10*3/?L. The reference range was not used to interpret this result as normal/abnormal. GRAN MAT (NEUT) % (test code = 770-8) 55.7 % IMM GRAN % (test code = 0628171131) 0.60 % LYMPH % (test code = 736-9) 28.4 % MONO % (test code = 5905-5) 12.2 % EOS % (test code = 713-8) 1.7 % BASO % (test code = 706-2) 1.4 % GRAN MAT x10^3(ANC) (test code = 3667378312) 1.96 10*3/uL 1.88-7.09 IMM GRAN x10^3 (test code = 4087964396) <0.03 0.00-0.06 LYMPH x10^3 (test code = 731-0) 1.00 10*3/uL 1.32-3.29 L MONO x10^3 (test code = 742-7) 0.43 10*3/uL 0.33-0.92 EOS x10^3 (test code = 711-2) 0.06 10*3/uL 0.03-0.39 BASO x10^3 (test code = 704-7) 0.05 10*3/uL 0.01-0.07 ELLIPTO/OVAL (test code = 63866-3) 2+ See_Comment A [Automated messa ge] The system which generated this result transmitted reference range: (none). The reference range was not used to interpret this result as normal/abnormal. POLYCHROMASIA (test code = 69423-7) 2+ See_Comment [Automated messa ge] The system which generated this result transmitted reference range: 2+. The reference range was not used to interpret this result as normal/abnormal. SPHEROCYTES (test code = 802-9) 1+ A Lab Interpretation (test code = 25585-6) Abnormal [facility] WITH [id number] 13:55:22* Test Item Value Reference Range Interpretation Comme nts WBC (test code = 6690-2) See_Comment L [Automated messa ge] The system which generated this result transmitted reference range: 4.30 - 11.10 10*3/?L. The reference range was not used to interpret this result as normal/abnormal. RBC (test code = 789-8) See_Comment L [Automated messa ge] The system which generated this result transmitted reference range: 3.93 - 5.25 10*6/?L. The reference range was not used to interpret this result as normal/abnormal. HGB (test code = 718-7) 6.3 g/dL 11.6-15.0 L HCT (test code = 4544-3) 22.7 % 35.7-45.2 L MCV (test code = 787-2) 71.2 fL 80.6-95.5 L MCH (test code = 785-6) 19.7 pg 25.9-32.8 L MCHC (test code = 786-4) 27.8 g/dL 31.6-35.1 L RDW-SD (test code = 27385-6) 54.9 fL 39.0-49.9 H RDW-CV (test code = 788-0) 21.4 % 12.0-15.5 H PLT (test code = 777-3) See_Comment L [Automated messa ge] The system which generated this result transmitted reference range: 166 - 358 10*3/?L. The reference range was not used to interpret this result as normal/abnormal. MPV (test code = 59246-1) Not Measured IPF % (test code = 1053553786) 8.2 % 1.3-7.7 H Platelet count measured by fluorescence method. NRBC/100 WBC (test code = 2890704354) See_Comment [Automated [employer]age] The system which generated this result transmitted reference range: 0.0 - 10.0 /100 WBCs. The reference range was not used to interpret this result as normal/abnormal. NRBC x10^3 (test code = 3048754801) <0.01 See_Comment [Automated [employer]] The system which generated this result transmitted reference range: 10*3/?L. The reference range was not used to interpret this result as normal/abnormal. GRAN MAT (NEUT) % (test code = 770-8) 55.7 % IMM GRAN % (test code = 1570695415) 0.60 % LYMPH % (test code = 736-9) 28.4 % MONO % (test code = 5905-5) 12.2 % EOS % (test code = 713-8) 1.7 % BASO % (test code = 706-2) 1.4 % GRAN MAT x10^3(ANC) (test code = 9153150957) 1.96 10*3/uL 1.88-7.09 IMM GRAN x10^3 (test code = 8013103013) <0.03 0.00-0.06 LYMPH x10^3 (test code = 731-0) 1.00 10*3/uL 1.32-3.29 L MONO x10^3 (test code = 742-7) 0.43 10*3/uL 0.33-0.92 EOS x10^3 (test code = 711-2) 0.06 10*3/uL 0.03-0.39 BASO x10^3 (test code = 704-7) 0.05 10*3/uL 0.01-0.07 ELLIPTO/OVAL (test code = 49478-7) 2+ See_Comment A [Automated [employer]] The system which generated this result transmitted reference range: (none). The reference range was not used to interpret this result as normal/abnormal. POLYCHROMASIA (test code = 37554-9) 2+ See_Comment [Automated [employer]] The system which generated this result transmitted reference range: 2+. The reference range was not used to interpret this result as normal/abnormal. SPHEROCYTES (test code = 802-9) 1+ A Lab Interpretation (test code = 86024-9) Abnormal [facility] METABOLIC PANEL (NA, K, CL, CO2, GLUCOSE, BUN, CREATININE, CA)2021-03-21 12:06:02* Test Item Value Reference Range Interpretation Comme nts NA (test code = 8838545919) 138 mmol/L 135-145 K (test code = 4210515522) 3.7 mmol/L 3.5-5.0 CL (test code = 2809823475) 108 mmol/L 98-108 CO2 TOTAL (test code = 2011243443) 21 mmol/L 23-31 L AGAP (test code = 8559497453) 2-16 BUN (test code = 4727385867) 4 mg/dL 7-23 L GLUCOSE (test code = 0288047497) 97 mg/dL 70-110 CREATININE (test code = 5489072928) 0.54 mg/dL 0.50-1.04 CALCIUM (test code = 7959978759) 9.1 mg/dL 8.6-10.6 eGFR (test code = 9795776971) mL/min/1.73m2 BARTOLOME (test code = BARTOLOME) Association of Glomerular Filtration Rate (GFR) and Staging of Kidney Disease* + --+ --+ ------+| GFR (mL/min/1.73 m2) ?| With Kidney Damage ?| ?Without Kidney Damage+ --------+ --------+ +| ?>90 ?| ?Stage one ?| ? Normal ?+ ---+ ---+ -------+| ?60-89 ?| ?Stage two ?| ? Decreased GFR ? + --+ --+ ------+| ?30-59 ?| ?Stage three ?| ? Stage three ? + --+ --+ ------+| ?15-29 ?| ?Stage four ? | ? Stage four ?+ ---+ ---+ -------+| ?<15 (or dialysis) ? ?| ?Stage five ? | ? Stage five ?+ ---+ ---+ -------+ *Each stage assumes the associated GFR level has been in effect for at least three months. ?Stages 1 to 5, with or without kidney disease, indicate chronic kidney disease. Notes: Determination of stages one and two (with eGFR >59mL/min/1.73 m2) requires estimation of kidney damage for at least three months as defined by structural or functional abnormalities of the kidney, manifested by either:Pathological abnormalities or Markers of kidney damage (including abnormalities in the composition of the blood or urine or abnormalities in imaging tests). Lab Interpretation (test code = 66655-3) Abnormal [facility] METABOLIC PANEL (NA, K, CL, CO2, GLUCOSE, BUN, CREATININE, CA)2021-03-21 12:06:02* Test Item Value Reference Range Interpretation Comme nts NA (test code = 5513691223) 138 mmol/L 135-145 K (test code = 0000726960) 3.7 mmol/L 3.5-5.0 CL (test code = 5945122039) 108 mmol/L 98-108 CO2 TOTAL (test code = 2856506478) 21 mmol/L 23-31 L AGAP (test code = 0367249322) 2-16 BUN (test code = 1742095882) 4 mg/dL 7-23 L GLUCOSE (test code = 5652900412) 97 mg/dL 70-110 CREATININE (test code = 3644621838) 0.54 mg/dL 0.50-1.04 CALCIUM (test code = 3779642515) 9.1 mg/dL 8.6-10.6 eGFR (test code = 6844022185) mL/min/1.73m2 BARTOLOME (test code = BARTOLOME) Association of Glomerular Filtration Rate (GFR) and Staging of Kidney Disease* + --+ --+ ------+| GFR (mL/min/1.73 m2) ?| With Kidney Damage ?| ?Without Kidney Damage+ --------+ --------+ +| ?>90 ?| ?Stage one ?| ? Normal ?+ ---+ ---+ -------+| ?60-89 ?| ?Stage two ?| ? Decreased GFR ? + --+ --+ ------+| ?30-59 ?| ?Stage three ?| ? Stage three ? + --+ --+ ------+| ?15-29 ?| ?Stage four ? | ? Stage four ?+ ---+ ---+ -------+| ?<15 (or dialysis) ? ?| ?Stage five ? | ? Stage five ?+ ---+ ---+ -------+ *Each stage assumes the associated GFR level has been in effect for at least three months. ?Stages 1 to 5, with or without kidney disease, indicate chronic kidney disease. Notes: Determination of stages one and two (with eGFR >59mL/min/1.73 m2) requires estimation of kidney damage for at least three months as defined by structural or functional abnormalities of the kidney, manifested by either:Pathological abnormalities or Markers of kidney damage (including abnormalities in the composition of the blood or urine or abnormalities in imaging tests). Lab Interpretation (test code = 70444-3) [facility]* Test Item Value Reference Range Interpretation Comme nts PHOSPHORUS (test code = 3178537752) 2.0 mg/dL 2.5-5.0 L Lab Interpretation (test cod e = 90817-9) [facility]normal [facility] 08:41:33* Test Item Value Reference Range Interpretation Comme nts PHOSPHORUS (test code = 5352488341) 2.0 mg/dL 2.5-5.0 L Lab Interpretation (test cod e = 29728-5) Abnormal [facility] WITH [id number] 00:12:32* Test Item Value Reference Range Interpretation Comme nts WBC (test code = 6690-2) See_Comment L [Automated messa ge] The system which generated this result transmitted reference range: 4.30 - 11.10 10*3/?L. The reference range was not used to interpret this result as normal/abnormal. RBC (test code = 789-8) See_Comment L [Automated messa ge] The system which generated this result transmitted reference range: 3.93 - 5.25 10*6/?L. The reference range was not used to interpret this result as normal/abnormal. HGB (test code = 718-7) 6.0 g/dL 11.6-15.0 L HCT (test code = 4544-3) 21.1 % 35.7-45.2 L MCV (test code = 787-2) 70.3 fL 80.6-95.5 L MCH (test code = 785-6) 20.0 pg 25.9-32.8 L MCHC (test code = 786-4) 28.4 g/dL 31.6-35.1 L RDW-SD (test code = 13338-2) 54.9 fL 39.0-49.9 H RDW-CV (test code = 788-0) 21.7 % 12.0-15.5 H PLT (test code = 777-3) See_Comment L [Automated messa ge] The system which generated this result transmitted reference range: 166 - 358 10*3/?L. The reference range was not used to interpret this result as normal/abnormal. MPV (test code = 95654-1) Not Measured NRBC/100 WBC (test code = 4871945542) See_Comment [Automated [employer]] The system which generated this result transmitted reference range: 0.0 - 10.0 /100 WBCs. The reference range was not used to interpret this result as normal/abnormal. NRBC x10^3 (test code = 8790779342) See_Comment [Automated [employer]] The system which generated this result transmitted reference range: 10*3/?L. The reference range was not used to interpret this result as normal/abnormal. GRAN MAT (NEUT) % (test code = 770-8) 66.6 % IMM GRAN % (test code = 0645691467) 0.30 % LYMPH % (test code = 736-9) 23.6 % MONO % (test code = 5905-5) 7.9 % EOS % (test code = 713-8) 0.8 % BASO % (test code = 706-2) 0.8 % GRAN MAT x10^3(ANC) (test code = 2411048508) 2.45 10*3/uL 1.88-7.09 IMM GRAN x10^3 (test code = 9961926115) <0.03 0.00-0.06 LYMPH x10^3 (test code = 731-0) 0.87 10*3/uL 1.32-3.29 L MONO x10^3 (test code = 742-7) 0.29 10*3/uL 0.33-0.92 L EOS x10^3 (test code = 711-2) 0.03 10*3/uL 0.03-0.39 BASO x10^3 (test code = 704-7) 0.03 10*3/uL 0.01-0.07 Lab Interpretation (test code = 98097-7) Abnormal [facility] WITH [id number] 00:12:32* Test Item Value Reference Range Interpretation Comme nts WBC (test code = 6690-2) See_Comment L [Automated messa ge] The system which generated this result transmitted reference range: 4.30 - 11.10 10*3/?L. The reference range was not used to interpret this result as normal/abnormal. RBC (test code = 789-8) See_Comment L [Automated messa ge] The system which generated this result transmitted reference range: 3.93 - 5.25 10*6/?L. The reference range was not used to interpret this result as normal/abnormal. HGB (test code = 718-7) 6.0 g/dL 11.6-15.0 L HCT (test code = 4544-3) 21.1 % 35.7-45.2 L MCV (test code = 787-2) 70.3 fL 80.6-95.5 L MCH (test code = 785-6) 20.0 pg 25.9-32.8 L MCHC (test code = 786-4) 28.4 g/dL 31.6-35.1 L RDW-SD (test code = 32976-7) 54.9 fL 39.0-49.9 H RDW-CV (test code = 788-0) 21.7 % 12.0-15.5 H PLT (test code = 777-3) See_Comment L [Automated messa ge] The system which generated this result transmitted reference range: 166 - 358 10*3/?L. The reference range was not used to interpret this result as normal/abnormal. MPV (test code = 38102-3) Not Measured NRBC/100 WBC (test code = 0278374412) See_Comment [Automated me ssage] The system which generated this result transmitted reference range: 0.0 - 10.0 /100 WBCs. The reference range was not used to interpret this result as normal/abnormal. NRBC x10^3 (test code = 0199695003) See_Comment [Automated messa ge] The system which generated this result transmitted reference range: 10*3/?L. The reference range was not used to interpret this result as normal/abnormal. GRAN MAT (NEUT) % (test code = 770-8) 66.6 % IMM GRAN % (test code = 3824552736) 0.30 % LYMPH % (test code = 736-9) 23.6 % MONO % (test code = 5905-5) 7.9 % EOS % (test code = 713-8) 0.8 % BASO % (test code = 706-2) 0.8 % GRAN MAT x10^3(ANC) (test code = 9885502218) 2.45 10*3/uL 1.88-7.09 IMM GRAN x10^3 (test code = 1188659563) <0.03 0.00-0.06 LYMPH x10^3 (test code = 731-0) 0.87 10*3/uL 1.32-3.29 L MONO x10^3 (test code = 742-7) 0.29 10*3/uL 0.33-0.92 L EOS x10^3 (test code = 711-2) 0.03 10*3/uL 0.03-0.39 BASO x10^3 (test code = 704-7) 0.03 10*3/uL 0.01-0.07 Lab Interpretation (test code = 88017-1) [facility]normal [facility] 21:45:47* Test Item Value Reference Range Interpretation Comme nts APPEARANCE (test code = 4916260795) Clear Clear COLOR (test code = 3642402995) Yellow Colorless A PH (test code = 7315418185) 4.8-8.0 SP GRAVITY (test code = 5634556513) 1.003-1.035 GLU U QUAL (test code = 6473355171) Negative Negative BLOOD (test code = 9939491568) Trace Negative A KETONES (test code = 0879977741) Negative Negative PROTEIN (test code = 2887-8) Trace Negative A UROBILIN (test code = 9473660303) Normal Normal BILIRUBIN (test code = 6685532741) Negative Negative NITRITE (test code = 9921840864) Negative Negative LEUK PATRICIA (test code = 6454251085) Positive Negative A RBC/HPF (test code = 6401518522) See_Comment H [Automated messa ge] The system which generated this result transmitted reference range: 0 - 3 HPF. The reference range was not used to interpret this result as normal/abnormal. WBC/HPF (test code = 7228865849) See_Comment H [Automated messa ge] The system which generated this result transmitted reference range: 0 - 5 HPF. The reference range was not used to interpret this result as normal/abnormal. BACTERIA (test code = 3283725085) Few Negative A MUCOUS (test code = 1965139146) Slight Negative LPF A SQ EPITH (test code = 1858040546) <1 See_Comment [Automated messa ge] The system which generated this result transmitted reference range: <=1 HPF. The reference range was not used to interpret this result as normal/abnormal. Lab Interpretation (test code = 22082-3) [facility]normal [facility] 21:45:47* Test Item Value Reference Range Interpretation Comme nts APPEARANCE (test code = 0441282948) Clear Clear COLOR (test code = 5041956171) Yellow Colorless A PH (test code = 7965413780) 4.8-8.0 SP GRAVITY (test code = 2200314477) 1.003-1.035 GLU U QUAL (test code = 7553197301) Negative Negative BLOOD (test code = 3313675112) Trace Negative A KETONES (test code = 7256458018) Negative Negative PROTEIN (test code = 2887-8) Trace Negative A UROBILIN (test code = 1613936376) Normal Normal BILIRUBIN (test code = 3689799772) Negative Negative NITRITE (test code = 0959219242) Negative Negative LEUK PATRICIA (test code = 0486844465) Positive Negative A RBC/HPF (test code = 5711108110) See_Comment H [Automated messa ge] The system which generated this result transmitted reference range: 0 - 3 HPF. The reference range was not used to interpret this result as normal/abnormal. WBC/HPF (test code = 8403801155) See_Comment H [Automated messa ge] The system which generated this result transmitted reference range: 0 - 5 HPF. The reference range was not used to interpret this result as normal/abnormal. BACTERIA (test code = 3173881572) Few Negative A MUCOUS (test code = 5970157397) Slight Negative LPF A SQ EPITH (test code = 6161718146) <1 See_Comment [Automated messa ge] The system which generated this result transmitted reference range: <=1 HPF. The reference range was not used to interpret this result as normal/abnormal. Lab Interpretation (test code = 56438-8) [facility]normal [facility] [id number] 19:52:27* Test Item Value Reference Range Interpretation Comme nts CLERICAL CK (test code = 542) Acceptable Performed at [facility] Blood [address] Free: [phone] No. [id number] POST ABO & RH (test code = 1616) O Positive Performed at [facility] Blood [address] Free: [phone] No. [id number] POST CASI (test code = 1619) Negative Performed at [place] [address]Toll Free: [phone] No. [id number] POST SERUM (test code = 1620) Slightly Icteric Performed at [address] Free: [phone] No. [id number] PRELIM RESULT (test code = 3962) Negative TxRxn Negative: No wilmer dence of a hemolytic transfusion reaction; Blood Bank physician interpretation to follow.Performed [address] Free: [phone] No. [id number] PRODUCT (test code = 2110) RBC- See comment [id number] rforme d at [address] Free: [phone] No. [id number] PRE SERUM (test code = 1637) No Icterus Noted Performed at [place] [address]T[place] Free: [phone] No. [id number] [facility] [id number] 19:52:27* Test Item Value Reference Range Interpretation Comme nts CLERICAL CK (test code = 542) Acceptable Performed at [place] [address] Free: [phone] No. [id number] POST ABO & RH (test code = 1616) O Positive Performed at [place] [address] Free: [phone] No. [id number] POST CASI (test code = 1619) Negative Performed at [place] [address] Free: [phone] No. [id number] POST SERUM (test code = 1620) Slightly Icteric Performed at [place] [address] Free: [phone] No. [id number] PRELIM RESULT (test code = 3962) Negative TxRxn Negative: No wilmer dence of a hemolytic transfusion reaction; Blood Bank physician interpretation to follow.Performed at [place] [address]Toll Free: [phone] No. [id number] PRODUCT (test code = 2110) RBC- See comment [id number] rforme d at [facility] Laboratory Services - [facility] Blood [address] [place], [place] [address] Free: [phone] No. [id number] PRE SERUM (test code = 1637) No Icterus Noted Performed at [facility] Laboratory Services - [facility] Blood [address] [place], [place] [address]Toll Free: [phone] No. [id number] [facility] B12, [id number] 18:50:07* Test Item Value Reference Range Interpretation Comme nts VIT B12 (test code = 4134806026) 223 pg/mL 240-930 L BARTOLOME (test code = BARTOLOME) Biotin has been reported to cause a positive bias, interpret results relative to patient's use of biotin. Lab Interpretation (test code = 25538-3) Abnormal [facility] B12, [id number] 18:50:07* Test Item Value Reference Range Interpretation Comme nts VIT B12 (test code = 0684818577) 223 pg/mL 240-930 L BARTOLOME (test code = BARTOLOME) Biotin has been reported to cause a positive bias, interpret results relative to patient's use of biotin. Lab Interpretation (test code = 25901-7) [facility]normal [facility] 17:59:40* Test Item Value Reference Range Interpretation Comme nts FOLATE SER (test code = 3544828175) 13.3 ng/mL 3.0-20.0 Lab Interpretation (test cod e = 26011-0) Normal [facility] 17:59:40* Test Item Value Reference Range Interpretation Comme nts FOLATE SER (test code = 0584977955) 13.3 ng/mL 3.0-20.0 Lab Interpretation (test cod e = 86046-4) Normal [facility]2022-02-10 17:56:33* Test Item Value Reference Range Interpretation Comme nts Procalcitonin (test code = 0862216584) 2.04 ng/mL <0.07 H BARTOLOME (test code = BARTOLOME) INTERPRETATION OF PROCALCITONIN RESULTS IN ADULTS >= 18 YEARS OF AGE Initiation and discontinuation of antibiotics on patients with suspected or confirmed Lower Respiratory Tract Infection in Adults >= 18 years of age. + +-------- --------+ + -----+|Procalcitonin |Interpretation ?|Antibiotic ? ? |Considerations ? |ng/mL ? | ?|recommendation | ? + +-------- --------+ + -----+| <0.1 ? | Bacterial ? ? ?| Strongly ? ? ?| ? | ?| infection very | discouraged ? | Overruling: ? | ?| unlikely ? ? ? | ? | ? Clinically unstable ? ? ? + +-------- --------+ + ? High risk for adverse ? ? | <0.25 ?| Bacterial ? ? ?| Discouraged ? | ? outcome ? | ?| infection ? ? ?| ? | ? SEE IMPORTANT NOTE ?| ?| unlikely ? ? ? | ? | ? + +-------- --------+ + -----+| >=0.25 ? ? ? | Bacterial ? ? ?| Encouraged ? ?| ? | ?| infection ? ? ?| ? | ? | ?| likely ? | ? | Consider treatment failure ?+ +------- ---------+ -+ if levels does not decrease | >0.5 ? | Bacterial ? ? ?| Strongly ? ? ?| appropriately ? | ?| infection very | encouraged ? ?| ? | ?| likely ? | ? | ? + +-------- --------+ + -----+ Discontinuation of antibiotics in high-acuity patients with suspected or confirmed sepsis in Adults >= 18 years of age. + +-------- --------+ + -----+|Procalcitonin |Interpretation ?|Antibiotic ? ? |Considerations ? |ng/mL ? | ?|recommendation | ? + +-------- --------+ + -----+| <0.25 ?| Bacterial ? ? ?| Strongly ? ? ?| ? | ?| infection very | discouraged ? | Overruling: ? | ?| unlikely ? ? ? | ? | ? Clinically unstable ? ? ? + +-------- --------+ + ? High risk for adverse ? ? | <0.5 or drop | Bacterial ? ? ?| Discouraged ? | ? outcome ? | >80% from ? ?| infection ? ? ?| ? | ? SEE IMPORTANT NOTE ?| highest PCT ?| unlikely ? ? ? | ? | ? | level ?| ?| ? | ? + +-------- --------+ + -----+| >=0.5 ?| Bacterial ? ? ?| Encouraged ? ?| ? | ?| infection ? ? ?| ? | ? | ?| likely ? | ? | Consider treatment failure ?+ +------- ---------+ -+ if levels does not decrease | >1.0 ? | Bacterial ? ? ?| Strongly ? ? ?| appropriately ? | ?| infection very | encouraged ? ?| ? | ?| likely ? | ? | ? + +-------- --------+ + -----+ Percentage of drop of Procalcitonin calculation for Discontinuation of antibiotics in high-acuity patients with suspected or confirmed sepsis in Adults >= 18 years of age. ? Procalcitonin highest{}-Procalcitonin current{}Delta Procalcitonin = x100% ? Procalcitonin current {} IMPORTANT NOTE: Procalcitonin may be elevated without bacterial infection by physiologic stress related to trauma, haile, chronic dialysis, metastatic cancer, surgery in the past seven days, malaria, some fungal infections, and some forms of vasculitis. The interpretation algorithm may not apply to patients with immunosuppression (equivalent of >10 mg of prednisone daily), HIV with CD4 cell count < 350 cells/mm3, active malignancy on systemic chemotherapy, solid organ transplant or hematopoietic stem cell transplantation, or hospital acquired pneumonia. Additionally, some clinical trials of procalcitonin have excluded patients with shock requiring vasopressor use, acute respiratory failure requiring mechanical ventilation, or those with known lung abscess/empyema. For further information please refer to:[email or web address] Lab Interpretation (test code = 85598-9) [facility] 17:56:33* Test Item Value Reference Range Interpretation Comme nts Procalcitonin (test code = 9690027172) 2.04 ng/mL <0.07 H BARTOLOME (test code = BARTOLOME) INTERPRETATION OF PROCALCITONIN RESULTS IN ADULTS >= 18 YEARS OF AGE Initiation and discontinuation of antibiotics on patients with suspected or confirmed Lower Respiratory Tract Infection in Adults >= 18 years of age. + +-------- --------+ + -----+|Procalcitonin |Interpretation ?|Antibiotic ? ? |Considerations ? |ng/mL ? | ?|recommendation | ? + +-------- --------+ + -----+| <0.1 ? | Bacterial ? ? ?| Strongly ? ? ?| ? | ?| infection very | discouraged ? | Overruling: ? | ?| unlikely ? ? ? | ? | ? Clinically unstable ? ? ? + +-------- --------+ + ? High risk for adverse ? ? | <0.25 ?| Bacterial ? ? ?| Discouraged ? | ? outcome ? | ?| infection ? ? ?| ? | ? SEE IMPORTANT NOTE ?| ?| unlikely ? ? ? | ? | ? + +-------- --------+ + -----+| >=0.25 ? ? ? | Bacterial ? ? ?| Encouraged ? ?| ? | ?| infection ? ? ?| ? | ? | ?| likely ? | ? | Consider treatment failure ?+ +------- ---------+ -+ if levels does not decrease | >0.5 ? | Bacterial ? ? ?| Strongly ? ? ?| appropriately ? | ?| infection very | encouraged ? ?| ? | ?| likely ? | ? | ? + +-------- --------+ + -----+ Discontinuation of antibiotics in high-acuity patients with suspected or confirmed sepsis in Adults >= 18 years of age. + +-------- --------+ + -----+|Procalcitonin |Interpretation ?|Antibiotic ? ? |Considerations ? |ng/mL ? | ?|recommendation | ? + +-------- --------+ + -----+| <0.25 ?| Bacterial ? ? ?| Strongly ? ? ?| ? | ?| infection very | discouraged ? | Overruling: ? | ?| unlikely ? ? ? | ? | ? Clinically unstable ? ? ? + +-------- --------+ + ? High risk for adverse ? ? | <0.5 or drop | Bacterial ? ? ?| Discouraged ? | ? outcome ? | >80% from ? ?| infection ? ? ?| ? | ? SEE IMPORTANT NOTE ?| highest PCT ?| unlikely ? ? ? | ? | ? | level ?| ?| ? | ? + +-------- --------+ + -----+| >=0.5 ?| Bacterial ? ? ?| Encouraged ? ?| ? | ?| infection ? ? ?| ? | ? | ?| likely ? | ? | Consider treatment failure ?+ +------- ---------+ -+ if levels does not decrease | >1.0 ? | Bacterial ? ? ?| Strongly ? ? ?| appropriately ? | ?| infection very | encouraged ? ?| ? | ?| likely ? | ? | ? + +-------- --------+ + -----+ Percentage of drop of Procalcitonin calculation for Discontinuation of antibiotics in high-acuity patients with suspected or confirmed sepsis in Adults >= 18 years of age. ? Procalcitonin highest{}-Procalcitonin current{}Delta Procalcitonin = x100% ? Procalcitonin current {} IMPORTANT NOTE: Procalcitonin may be elevated without bacterial infection by physiologic stress related to trauma, haile, chronic dialysis, metastatic cancer, surgery in the past seven days, malaria, some fungal infections, and some forms of vasculitis. The interpretation algorithm may not apply to patients with immunosuppression (equivalent of >10 mg of prednisone daily), HIV with CD4 cell count < 350 cells/mm3, active malignancy on systemic chemotherapy, solid organ transplant or hematopoietic stem cell transplantation, or hospital acquired pneumonia. Additionally, some clinical trials of procalcitonin have excluded patients with shock requiring vasopressor use, acute respiratory failure requiring mechanical ventilation, or those with known lung abscess/empyema. For further information please refer to:[email or web address] Lab Interpretation (test code = 40455-0) [facility]normal [facility]ne[facility]ERRITIN [id number] 17:29:35* Test Item Value Reference Range Interpretation Comme nts FERRITIN (test code = 7180049948) 8.2 ng/mL 11.0-264.0 L BARTOLOME (test code = BARTOLOME) Biotin has been reported to cause a negative bias, interpret results relative to patient's use of biotin. Lab Interpretation (test code = 46099-8) [facility]normal [facility]ERR[facility] [id number] 17:29:35* Test Item Value Reference Range Interpretation Comme nts FERRITIN (test code = 4140202317) 8.2 ng/mL 11.0-264.0 L BARTOLOME (test code = BARTOLOME) Biotin has been reported to cause a negative bias, interpret results relative to patient's use of biotin. Lab Interpretation (test code = 60435-0) [facility]normal [facility]ne[facility]ITAMIN D, [id number] 17:11:54* Test Item Value Reference Range Interpretation Comme nts VIT D 25OH (test code = 50239-2) 19 ng/mL 25-80 L BARTOLOME (test code = BARTOLOME) Deficiency: <20 ng/mLInsufficiency: 20-24 ng/mLOptimal: 25-80 ng/mL Lab Interpretation (test code = 29289-8) [facility]normal [facility], [id number] 17:11:54* Test Item Value Reference Range Interpretation Comme nts VIT D 25OH (test code = 03609-5) 19 ng/mL 25-80 L BARTOLOME (test code = BARTOLOME) Deficiency: <20 ng/mLInsufficiency: 20-24 ng/mLOptimal: 25-80 ng/mL Lab Interpretation (test code = 57958-5) [facility]normal [facility]neLIPID PANEL (22240)(TOTAL CHOLESTEROL, TRIGLYCERIDES, HDL)2021-03-20 16:55:51* Test Item Value Reference Range Interpretation Comme nts CHOL (test code = 1129172303) 105 mg/dL 120-200 L HDL (test code = 2342204166) 30 mg/dL >50 L HDLC RATIO (test code = 8860874141) See_Comment [Automated [employer]] The system which generated this result transmitted reference range: <=4.5. The reference range was not used to interpret this result as normal/abnormal. TRIG (test code = 2937146551) 92 mg/dL 30-170 LDL CHOL (test code = 84703-0) 57 mg/dL See_Comment [Automated [employer]] The system which generated this result transmitted reference range: <=160. The reference range was not used to interpret this result as normal/abnormal. VLDL (test code = 4448399700) 18 mg/dL 5-60 Lab Interpretation (test code = 97841-0) [facility]normal [facility]neMAGNESIUM2022-02-10 16:55:51* Test Item Value Reference Range Interpretation Comme nts MAGNESIUM (test code = 3686066109) 2.3 mg/dL 1.7-2.4 Lab Interpretation (test cod e = 93150-8) Normal [facility]neLIPID PANEL (93973)(TOTAL CHOLESTEROL, TRIGLYCERIDES, HDL)2021-03-20 16:55:51* Test Item Value Reference Range Interpretation Comme nts CHOL (test code = 3231053293) 105 mg/dL 120-200 L HDL (test code = 5126588307) 30 mg/dL >50 L HDLC RATIO (test code = 7783487807) See_Comment [Automated messa ge] The system which generated this result transmitted reference range: <=4.5. The reference range was not used to interpret this result as normal/abnormal. TRIG (test code = 3056136904) 92 mg/dL 30-170 LDL CHOL (test code = 17561-2) 57 mg/dL See_Comment [Automated messa ge] The system which generated this result transmitted reference range: <=160. The reference range was not used to interpret this result as normal/abnormal. VLDL (test code = 5130816289) 18 mg/dL 5-60 Lab Interpretation (test code = 84829-9) [facility]normal [facility]UM2022-02-10 16:55:51* Test Item Value Reference Range Interpretation Comme nts MAGNESIUM (test code = 4807524045) 2.3 mg/dL 1.7-2.4 Lab Interpretation (test cod e = 16360-6) Normal [facility] [id number] 10:47:10* Test Item Value Reference Range Interpretation Comme nts ESR (test code = 5843214248) See_Comment H [Automated messa ge] The system which generated this result transmitted reference range: 0 - 20 mm/HR. The reference range was not used to interpret this result as normal/abnormal. Lab Interpretation (test code = 42632-1) Abnormal [facility] [id number] 10:47:10* Test Item Value Reference Range Interpretation Comme nts ESR (test code = 6685348116) See_Comment H [Automated messa ge] The system which generated this result transmitted reference range: 0 - 20 mm/HR. The reference range was not used to interpret this result as normal/abnormal. Lab Interpretation (test code = 21663-0) Abnormal [facility]nePROTHROMBIN TIME / [id number] 10:32:40* Test Item Value Reference Range Interpretation Comme nts PROTIME PATIENT (test code = 5964-2) See_Comment [Automated messa ge] The system which generated this result transmitted reference range: 12.0 - 14.7 Seconds. The reference range was not used to interpret this result as normal/abnormal. INR (test code = 6301-6) Normal INR <1.1; Warfarin Therapeutic range 2.0 to 3.0 or 2.5 to 3.5, depending upon the indications. Lab Interpretation (test code = 96048-5) Normal [facility]nePROTHROMBIN TIME / [id number] 10:32:40* Test Item Value Reference Range Interpretation Comme nts PROTIME PATIENT (test code = 5964-2) See_Comment [Automated messa ge] The system which generated this result transmitted reference range: 12.0 - 14.7 Seconds. The reference range was not used to interpret this result as normal/abnormal. INR (test code = 6301-6) Normal INR <1.1; Warfarin Therapeutic range 2.0 to 3.0 or 2.5 to 3.5, depending upon the indications. Lab Interpretation (test code = 92857-9) Normal [facility]neGLYCOSYLATED HEMOGLOBIN (A1C)2021-03-20 09:57:04HGB [id number]: Due to low hemoglobin, %A1C cannot be calculated.[facility]ATORYReference RangesNormal: <5.7%Prediabetes: 5.7 - 6.4%Diabetes: > 6.5%[facility] GLYCOSYLATED HEMOGLOBIN (A1C)2021-03-20 09:57:04HGB Y5ORgyhmks: Due to low hemoglobin, %A1C cannot be calculated.[facility] YReference RangesNormal: <5.7%Prediabetes: 5.7 - 6.4%Diabetes: > 6.5%[facility]neTROPONIN [id number] 04:37:22* Test Item Value Reference Range Interpretation Comments TROPONIN I (test code = 1714765941) 0.005 ng/mL See_Comment [Automated message] The system which generated this result transmitted reference range: <=0.034. The reference range was not used to interpret this result as normal/abnormal. BARTOLOME (test code = BARTOLOME) Reference (Normal) Range (defined by the 99th percentile reference limit): <= 0.034 ng/mL Note: Cardiac troponin begins to rise 3-4 hours after the onset of ischemia. Repeat in 4-6 hours if the sample was drawn within 3-4 hours of the onset of the symptom and found normal. Diagnosis of myocardial injury is made with acute changes in cTn concentrations with at least one serial sample above the 99th percentile upper reference limit (URL), taken together with the patient's clinical presentation. Biotin has been reported to cause a negative bias, interpret results relative to patient's use of biotin. Lab Interpretation (test code = 29340-6) Normal [facility]TR[facility]PITALNIN [id number] 04:37:22* Test Item Value Reference Range Interpretation Comments TROPONIN I (test code = 1602785659) 0.005 ng/mL See_Comment [Automated message] The system which generated this result transmitted reference range: <=0.034. The reference range was not used to interpret this result as normal/abnormal. BARTOLOME (test code = BARTOLOME) Reference (Normal) Range (defined by the 99th percentile reference limit): <= 0.034 ng/mL Note: Cardiac troponin begins to rise 3-4 hours after the onset of ischemia. Repeat in 4-6 hours if the sample was drawn within 3-4 hours of the onset of the symptom and found normal. Diagnosis of myocardial injury is made with acute changes in cTn concentrations with at least one serial sample above the 99th percentile upper reference limit (URL), taken together with the patient's clinical presentation. Biotin has been reported to cause a negative bias, interpret results relative to patient's use of biotin. Lab Interpretation (test code = 67563-7) Normal [facility] Cle[facility]nePrepare Packed RBC (in units), 1 Units 2021-03-20 04:36:09* Test Item Value Reference Range Interpretation Comme nts Cross Match Result (test code = 4409) Compatible ISBT Blood Type Code (test code = 321606) Unit Blood Type (test code = 4410) O Pos Unit Number (test code = 4411) [id number] Blood Expiration Date & Time (test code = 635501) Status Information (test code = 4412) Issued Product Identification (test code = 4413) Red Blood Cells Product Code (test code = 4414) [id number] Performed at [facility] B Laboratory Services - [facility] Blood [address] [place] [id number] Free: [phone] No. [id number] [facility]nePrepare Packed RBC (in units), 1 Units 2021-03-20 04:36:09* Test Item Value Reference Range Interpretation Comme nts Cross Match Result (test code = 4409) Compatible ISBT Blood Type Code (test code = 864330) Unit Blood Type (test code = 4410) O Pos Unit Number (test code = 4411) [id number] Blood Expiration Date & Time (test code = 464191) Status Information (test code = 4412) Issued Product Identification (test code = 4413) Red Blood Cells Product Code (test code = 4414) [id number] Performed at [facility] Laboratory [facility] Blood [address] [place] [address] Free: [phone] No. [id number] [facility] [id number] 04:32:19* Test Item Value Reference Range Interpretation Comme nts IRON (test code = 9137057463) 30 ug/dL 50-160 L TIBC (test code = 3117233513) 537 ug/dL 250-410 H % FE SAT (test code = 9996486442) 6 % 20-50 L Lab Interpretation (test cod e = 15765-8) Abnormal [facility] [id number] 04:32:19* Test Item Value Reference Range Interpretation Comme nts IRON (test code = 6512615161) 30 ug/dL 50-160 L TIBC (test code = 5113426320) 537 ug/dL 250-410 H % FE SAT (test code = 7612846159) 6 % 20-50 L Lab Interpretation (test cod e = 91640-4) [facility]normal [facility]neType and Screen - ONCE [id number] 04:24:44 * Test Item Value Reference Range Interpretation Comme nts ABO & RH (test code = 20) O Positive Performed at [facility] Laboratory [facility] Blood [address] [place], [place] [address]Toll Free: [phone] No. [id number] IAT (test code = 1185) Negative Performed at [facility] Laboratory Services - [facility] Blood [address] [place], [place] [address]Toll Free: [phone] No. [id number] [facility]ne[facility] Screen - ONCE [id number] 04:24:44 * Test Item Value Reference Range Interpretation Comme nts ABO & RH (test code = 20) O Positive Performed at [facility] Blood [place] [address]Toll Free: [phone] No. [id number] IAT (test code = 1185) Negative Performed at [facility] Blood [place] [address]Toll Free: [phone] No. [id number] [facility]neCBC WITH [id number] 03:31:38* Test Item Value Reference Range Interpretation Comme nts WBC (test code = 6690-2) See_Comment [Automated messa ge] The system which generated this result transmitted reference range: 4.30 - 11.10 10*3/?L. The reference range was not used to interpret this result as normal/abnormal. RBC (test code = 789-8) See_Comment L [Automated messa ge] The system which generated this result transmitted reference range: 3.93 - 5.25 10*6/?L. The reference range was not used to interpret this result as normal/abnormal. HGB (test code = 718-7) 3.9 g/dL 11.6-15.0 LL HCT (test code = 4544-3) 15.6 % 35.7-45.2 L MCV (test code = 787-2) 64.7 fL 80.6-95.5 L MCH (test code = 785-6) 16.2 pg 25.9-32.8 L MCHC (test code = 786-4) 25.0 g/dL 31.6-35.1 L RDW-SD (test code = 85537-2) 45.5 fL 39.0-49.9 RDW-CV (test code = 788-0) 19.2 % 12.0-15.5 H PLT (test code = 777-3) See_Comment L [Automated [employer]] The system which generated this result transmitted reference range: 166 - 358 10*3/?L. The reference range was not used to interpret this result as normal/abnormal. MPV (test code = 24822-9) Not Measured IPF % (test code = 1130154335) 5.9 % 1.3-7.7 Platelet count measured by fluorescence method. NRBC/100 WBC (test code = 3366467885) See_Comment [Automated [employer]] The system which generated this result transmitted reference range: 0.0 - 10.0 /100 WBCs. The reference range was not used to interpret this result as normal/abnormal. NRBC x10^3 (test code = 7595523107) <0.01 See_Comment [Automated [employer] ge] The system which generated this result transmitted reference range: 10*3/?L. The reference range was not used to interpret this result as normal/abnormal. GRAN MAT (NEUT) % (test code = 770-8) 77.8 % IMM GRAN % (test code = 5815537827) 0.20 % LYMPH % (test code = 736-9) 13.1 % MONO % (test code = 5905-5) 8.2 % EOS % (test code = 713-8) 0.0 % BASO % (test code = 706-2) 0.7 % GRAN MAT x10^3(ANC) (test code = 1312129572) 3.49 10*3/uL 1.88-7.09 IMM GRAN x10^3 (test code = 4711880850) <0.03 0.00-0.06 LYMPH x10^3 (test code = 731-0) 0.59 10*3/uL 1.32-3.29 L MONO x10^3 (test code = 742-7) 0.37 10*3/uL 0.33-0.92 EOS x10^3 (test code = 711-2) <0.03 0.03-0.39 L BASO x10^3 (test code = 704-7) 0.03 10*3/uL 0.01-0.07 POLYCHROMASIA (test code = 71697-0) 2+ See_Comment [Automated messa ge] The system which generated this result transmitted reference range: 2+. The reference range was not used to interpret this result as normal/abnormal. SPHEROCYTES (test code = 802-9) 1+ A GIANT PLATELETS (test code = 5908-9) Present See_Comment A [Automated messa ge] The system which generated this result transmitted reference range: (none). The reference range was not used to interpret this result as normal/abnormal. Lab Interpretation (test code = 74977-1) Abnormal [facility] WITH [id number] 03:31:38* Test Item Value Reference Range Interpretation Comme nts WBC (test code = 6690-2) See_Comment [Automated messa ge] The system which generated this result transmitted reference range: 4.30 - 11.10 10*3/?L. The reference range was not used to interpret this result as normal/abnormal. RBC (test code = 789-8) See_Comment L [Automated messa ge] The system which generated this result transmitted reference range: 3.93 - 5.25 10*6/?L. The reference range was not used to interpret this result as normal/abnormal. HGB (test code = 718-7) 3.9 g/dL 11.6-15.0 LL HCT (test code = 4544-3) 15.6 % 35.7-45.2 L MCV (test code = 787-2) 64.7 fL 80.6-95.5 L MCH (test code = 785-6) 16.2 pg 25.9-32.8 L MCHC (test code = 786-4) 25.0 g/dL 31.6-35.1 L RDW-SD (test code = 95044-7) 45.5 fL 39.0-49.9 RDW-CV (test code = 788-0) 19.2 % 12.0-15.5 H PLT (test code = 777-3) See_Comment L [Automated messa ge] The system which generated this result transmitted reference range: 166 - 358 10*3/?L. The reference range was not used to interpret this result as normal/abnormal. MPV (test code = 87243-9) Not Measured IPF % (test code = 8721759141) 5.9 % 1.3-7.7 Platelet count measured by fluorescence method. NRBC/100 WBC (test code = 0014900726) See_Comment [Automated [employer]] The system which generated this result transmitted reference range: 0.0 - 10.0 /100 WBCs. The reference range was not used to interpret this result as normal/abnormal. NRBC x10^3 (test code = 4226544209) <0.01 See_Comment [Automated [employer]] The system which generated this result transmitted reference range: 10*3/?L. The reference range was not used to interpret this result as normal/abnormal. GRAN MAT (NEUT) % (test code = 770-8) 77.8 % IMM GRAN % (test code = 7580782276) 0.20 % LYMPH % (test code = 736-9) 13.1 % MONO % (test code = 5905-5) 8.2 % EOS % (test code = 713-8) 0.0 % BASO % (test code = 706-2) 0.7 % GRAN MAT x10^3(ANC) (test code = 3355980194) 3.49 10*3/uL 1.88-7.09 IMM GRAN x10^3 (test code = 2514263753) <0.03 0.00-0.06 LYMPH x10^3 (test code = 731-0) 0.59 10*3/uL 1.32-3.29 L MONO x10^3 (test code = 742-7) 0.37 10*3/uL 0.33-0.92 EOS x10^3 (test code = 711-2) <0.03 0.03-0.39 L BASO x10^3 (test code = 704-7) 0.03 10*3/uL 0.01-0.07 POLYCHROMASIA (test code = 05454-4) 2+ See_Comment [[employer]] The system which generated this result transmitted reference range: 2+. The reference range was not used to interpret this result as normal/abnormal. SPHEROCYTES (test code = 802-9) 1+ A GIANT PLATELETS (test code = 5908-9) Present See_Comment A [Automated [employer]] The system which generated this result transmitted reference range: (none). The reference range was not used to interpret this result as normal/abnormal. Lab Interpretation (test code = 72054-7) Abnormal [facility]. METABOLIC PANEL (10621)2021-03-20 02:59:47* Test Item Value Reference Range Interpretation Comme nts NA (test code = 9977712502) 134 mmol/L 135-145 L K (test code = 1872610892) 3.8 mmol/L 3.5-5.0 CL (test code = 5004032490) 104 mmol/L 98-108 CO2 TOTAL (test code = 9125056279) 19 mmol/L 23-31 L AGAP (test code = 7912964072) 2-16 BUN (test code = 9992257961) 7 mg/dL 7-23 GLUCOSE (test code = 9516087488) 116 mg/dL 70-110 H CREATININE (test code = 9943145888) 0.73 mg/dL 0.50-1.04 TOTAL BILI (test code = 3885924911) 1.3 mg/dL 0.1-1.1 H CALCIUM (test code = 6691705286) 8.7 mg/dL 8.6-10.6 T PROTEIN (test code = 1080025877) 7.8 g/dL 6.3-8.2 ALBUMIN (test code = 9617705657) 4.4 g/dL 3.5-5.0 ALK PHOS (test code = 7377941064) 119 U/L 34-122 ALTv (test code = 1742-6) 25 U/L 5-35 AST(SGOT) (test code = 3856763432) 36 U/L 13-40 eGFR (test code = 8598877442) mL/min/1.73m2 BARTOLOME (test code = BARTOLOME) Association of Glomerular Filtration Rate (GFR) and Staging of Kidney Disease* + --+ --+ ------+| GFR (mL/min/1.73 m2) ?| With Kidney Damage ?| ?Without Kidney Damage+ --------+ --------+ +| ?>90 ?| ?Stage one ?| ? Normal ?+ ---+ ---+ -------+| ?60-89 ?| ?Stage two ?| ? Decreased GFR ? + --+ --+ ------+| ?30-59 ?| ?Stage three ?| ? Stage three ? + --+ --+ ------+| ?15-29 ?| ?Stage four ? | ? Stage four ?+ ---+ ---+ -------+| ?<15 (or dialysis) ? ?| ?Stage five ? | ? Stage five ?+ ---+ ---+ -------+ *Each stage assumes the associated GFR level has been in effect for at least three months. ?Stages 1 to 5, with or without kidney disease, indicate chronic kidney disease. Notes: Determination of stages one and two (with eGFR >59mL/min/1.73 m2) requires estimation of kidney damage for at least three months as defined by structural or functional abnormalities of the kidney, manifested by either:Pathological abnormalities or Markers of kidney damage (including abnormalities in the composition of the blood or urine or abnormalities in imaging tests). Lab Interpretation (test code = 57920-1) Abnormal [facility]. METABOLIC PANEL (66048)2021-03-20 02:59:47* Test Item Value Reference Range Interpretation Comme nts NA (test code = 0194986600) 134 mmol/L 135-145 L K (test code = 9569844222) 3.8 mmol/L 3.5-5.0 CL (test code = 6117320516) 104 mmol/L 98-108 CO2 TOTAL (test code = 8590160941) 19 mmol/L 23-31 L AGAP (test code = 3055638736) 2-16 BUN (test code = 9766287321) 7 mg/dL 7-23 GLUCOSE (test code = 0666176473) 116 mg/dL 70-110 H CREATININE (test code = 0199748508) 0.73 mg/dL 0.50-1.04 TOTAL BILI (test code = 8458710352) 1.3 mg/dL 0.1-1.1 H CALCIUM (test code = 0430923236) 8.7 mg/dL 8.6-10.6 T PROTEIN (test code = 1454733509) 7.8 g/dL 6.3-8.2 ALBUMIN (test code = 6858049910) 4.4 g/dL 3.5-5.0 ALK PHOS (test code = 3506853785) 119 U/L 34-122 ALTv (test code = 1742-6) 25 U/L 5-35 AST(SGOT) (test code = 3213767965) 36 U/L 13-40 eGFR (test code = 8869120126) mL/min/1.73m2 BARTOLOME (test code = BARTOLOME) Association of Glomerular Filtration Rate (GFR) and Staging of Kidney Disease* + --+ --+ ------+| GFR (mL/min/1.73 m2) ?| With Kidney Damage ?| ?Without Kidney Damage+ --------+ --------+ +| ?>90 ?| ?Stage one ?| ? Normal ?+ ---+ ---+ -------+| ?60-89 ?| ?Stage two ?| ? Decreased GFR ? + --+ --+ ------+| ?30-59 ?| ?Stage three ?| ? Stage three ? + --+ --+ ------+| ?15-29 ?| ?Stage four ? | ? Stage four ?+ ---+ ---+ -------+| ?<15 (or dialysis) ? ?| ?Stage five ? | ? Stage five ?+ ---+ ---+ -------+ *Each stage assumes the associated GFR level has been in effect for at least three months. ?Stages 1 to 5, with or without kidney disease, indicate chronic kidney disease. Notes: Determination of stages one and two (with eGFR >59mL/min/1.73 m2) requires estimation of kidney damage for at least three months as defined by structural or functional abnormalities of the kidney, manifested by either:Pathological abnormalities or Markers of kidney damage (including abnormalities in the composition of the blood or urine or abnormalities in imaging tests). Lab Interpretation (test code = 28191-4) [facility] Test Item Value Reference Range Interpretation Comme nts LIPASE (test code = 7861084299) 135 U/L 0-220 Lab Interpretation (test cod e = 09286-0) [facility]59:07* Test Item Value Reference Range Interpretation Comme nts LIPASE (test code = 6854548329) 135 U/L 0-220 Lab Interpretation (test cod e = 45273-1) Normal [facility] [id number] 02:23:00* Test Item Value Reference Range Interpretation Comme nts POCT PREG (test code = 1605) negative On board controls acceptable with C Line (test code = 3574) present POCT PREG LOT # (test code = 3575) [id number] POCT PREG TEST DATE ( test code = 3576) 2022-04-07 Lab Interpretation (test cod e = 42594-8) [id number]* Test Item Value Reference Range Interpretation Comme nts POCT PREG (test code = 1605) negative On board controls acceptable with C Line (test code = 3574) present POCT PREG LOT # (test code = 3575) [id number] POCT PREG TEST DATE ( test code = 3576) 2022-04-07 Lab Interpretation (test cod e = 11911-7) [facility]"
--- NOTE | 2023-09-19 11:59 | EDPHYS ---
Physician Documentation [facility] Name: Shari Palumbo Age: 53 yrs Sex: Female : 1970 Arrival Date: 09/19/2023 Time: 11:20 Bed 10 Private MD: ED Physician Fred Joseph HPI: 09/18 12:00 This 53 yrs old Female presents to ER via Ambulatory with complaints of sb4 Toothache. 12:00 The patient presents with broken tooth/teeth, pain, redness, swelling. The problem is sb4 located in the upper left first molar. Onset: The symptoms/episode began/occurred yesterday. Modifying factors: The symptoms are alleviated by nothing, the symptoms are aggravated by chewing, cold fluids, food, hot fluids. Associated signs and symptoms: The patient has no apparent associated signs or symptoms. The patient has not experienced similar symptoms in the past. The patient has not recently seen a physician. Historical: - Allergies: 11:50 PENICILLINS; nj1 - PMHx: 11:50 None; nj1 - PSHx: 11:50 None; nj1 - Immunization history:: Client reports receiving the 2nd dose of the Covid vaccine. - Infectious Disease History:: Denies. - Social history:: Smoking status: Patient denies any tobacco usage or history of. ROS: 12:00 Constitutional: Negative for fever, chills, and weight loss, sb4 12:00 ENT: Positive for dental pain, 12:00 All other systems are negative, Exam: 12:00 Head/Face: Normocephalic, atraumatic. Eyes: Extra-ocular motions intact. Periorbital sb4 areas with no swelling, redness, or edema. Skin: Warm, dry with normal turgor. Normal color with no rashes, no lesions, and no evidence of cellulitis. 12:00 Constitutional: The patient appears alert, awake, uncomfortable, 12:00 ENT: Ear canal(s): are normal, TM's: are normal, Dental exam: cellulitis, dental caries, fractured teeth are noted, specifically the upper left first molar, gum swelling, malocclusion, pain, Vital Signs: 11:47 BP 180 / 103; Pulse 74; Resp 18; Temp 98.7; Pulse Ox 98% ; Weight 78.47 kg; Height 5 nj1 ft. 2 in. ; Pain 10/10; 11:47 Body Mass Index 31.64 (78.47 kg, 157.48 cm) nj1 11:47 Pain Scale: Adult nj1 MDM: 11:33 Patient medically screened. sb4 12:00 Data reviewed: vital signs, nurses notes, and as a result, I will discharge patient. sb4 Counseling: I had a detailed discussion with the patient and/or guardian regarding the historical points, exam findings, and any diagnostic results supporting the discharge/admit diagnosis, the presence of at least one elevated blood pressure reading (>120/80) during this emergency department visit, the need for outpatient follow up, a dentist, to return to the emergency department if symptoms worsen or persist or if there are any questions or concerns that arise at home. Administered Medications: 12:09 Drug: Clindamycin PO 300 mg PO once Route: PO; hb 12:15 Follow up: Response: Medication administered at discharge. hb 12:09 Drug: Hydrocodone-Acetaminophen PO (7.5 mg-325 mg) 1 tabs PO once Route: PO; hb 12:15 Follow up: Response: Medication administered at discharge. hb 12:09 Drug: Ondansetron PO 4 mg PO once Route: PO; hb 12:15 Follow up: Response: Medication administered at discharge. hb Disposition: 13:52 Co-signature as Attending Physician, Fred Joseph MD I reviewed the patient's care rn provided by the Advanced Practice Provider and agree with the diagnosis and treatment plan. Disposition Summary: 09/19/23 11:58 Discharge Ordered Notes: Location: Home sb4 Problem: an ongoing problem sb4 Symptoms: have improved sb4 Condition: Stable sb4 Diagnosis - Dental infection sb4 Followup: sb4 - With: Delfin Mijares DDS - When: 2 - 3 days - Reason: Recheck today's complaints, Re-evaluation by your physician Discharge Instructions: - Discharge Summary Sheet sb4 - Dental Caries, Adult sb4 - Dental Pain, [id number] sb4 Forms: - Medication Reconciliation Form eb - Antibiotic Education sb4 - Patient Portal Instructions sb4 - Leadership Thank You Letter sb4 Prescriptions: - Clindamycin HCl 300 mg Oral Capsule - take 1 capsule ORAL route every 6 hours for 10 days; 40 capsule; Refills: 0, sb4 Product Selection Permitted Signatures: Fred Joseph MD MD rn Laura Alvarez RN RN hb Leticia Guerrero, PAOseiC PAMalika sb4 Corine Haider RN RN nj1
--- NOTE | 2023-09-19 11:59 | ER ---
Nurse's Notes [facility] Name: Shari Palumbo Age: 53 yrs Sex: Female : 1970 Arrival Date: 09/19/2023 Time: 11:20 Bed 10 Private MD: Diagnosis: Dental infection Presentation: 09/18 11:47 Chief complaint: Patient states: Left upper tooth pain since yesterday, getting worse, nj1 making ear hurts. Coronavirus screen: Vaccine status: Patient reports receiving the 2nd dose of the covid vaccine. Ebola Screen: Patient denies travel to an Ebola-affected area in the 21 days before illness onset. Initial Sepsis Screen: Does the patient meet any 2 criteria? No. Patient's initial sepsis screen is negative. Does the patient have a suspected source of infection? No. Patient's initial sepsis screen is negative. Risk Assessment: Do you want to hurt yourself or someone else? Patient reports no desire to harm self or others. Onset of symptoms was September 18, 2023. 11:47 Method Of Arrival: Ambulatory [facility] 11:47 Acuity: ARELI 4 nj1 Triage Assessment: 11:51 General: Appears in no apparent distress. uncomfortable, Behavior is calm, cooperative, nj1 appropriate for age. Pain: Complains of pain in mouth Pain currently is 10 out of 10 on a pain scale. EENT: Reports pain in mouth left upper toothache. Historical: - Allergies: 11:50 PENICILLINS; nj1 - PMHx: 11:50 None; nj1 - PSHx: 11:50 None; nj1 - Immunization history:: Client reports receiving the 2nd dose of the Covid vaccine. - Infectious Disease History:: Denies. - Social history:: Smoking status: Patient denies any tobacco usage or history of. Screenin:12 [facility] ED Fall Risk Assessment (Adult) History of falling in the last 3 months, kj2 including since admission No falls in past 3 months (0 pts) Confusion or Disorientation No (0 pts) Intoxicated or Sedated No (0 pts) Impaired Gait No (0 pts) Mobility Assist Device Used No (0 pt) Altered Elimination No (0 pt) Score/Fall Risk Level 0 - 2 = Low Risk. Abuse screen: Denies threats or abuse. Denies injuries from another. Nutritional screening: No deficits noted. Tuberculosis screening: No symptoms or risk factors identified. Assessment: 12:11 General: Appears in no apparent distress. Behavior is cooperative. Pain: Complains of kj2 pain in upper left first molar and mouth. Neuro: Level of Consciousness is awake, alert, Oriented to person, place, time, situation. Cardiovascular: Patient's skin is warm and dry. Respiratory: No deficits noted. GI: No deficits noted. : No deficits noted. Vital Signs: 11:47 BP 180 / 103; Pulse 74; Resp 18; Temp 98.7; Pulse Ox 98% ; Weight 78.47 kg; Height 5 nj1 ft. 2 in. ; Pain 10/10; 11:47 Body Mass Index 31.64 (78.47 kg, 157.48 cm) nj1 11:47 Pain Scale: Adult nj1 ED Course: 11:22 Patient arrived in ED. mr 11:25 Leticia Guerrero PA-C is PHCP. sb4 11:25 Fred Joseph MD is Attending Physician. sb4 11:50 Triage completed. nj1 11:51 Arm band placed on left wrist. nj1 11:58 Delfin Mijares DDS is Referral Physician. sb4 12:11 Jillian Haley RN is Primary Nurse. kj2 12:12 Patient has correct armband on for positive identification. Bed in low position. Call kj2 light in reach. Provided Education on: call light, fall precautions. Report received from YASMINE Pool. 12:14 No provider procedures requiring assistance completed. Patient did not have IV access kj2 during this emergency room visit. Administered Medications: 12:09 Drug: Clindamycin PO 300 mg PO once Route: PO; hb 12:15 Follow up: Response: Medication administered at discharge. hb 12:09 Drug: Hydrocodone-Acetaminophen PO (7.5 mg-325 mg) 1 tabs PO once Route: PO; hb 12:15 Follow up: Response: Medication administered at discharge. hb 12:09 Drug: Ondansetron PO 4 mg PO once Route: PO; hb 12:15 Follow up: Response: Medication administered at discharge. hb Medication: 12:12 VIS not applicable for this client. kj2 Outcome: 11:58 Discharge ordered by . sb4 12:13 Discharged to home ambulatory, kj2 12:13 Condition: stable 12:13 Discharge instructions given to patient, Instructed on discharge instructions, follow up and referral plans. Demonstrated understanding of instructions, follow-up care, 12:15 Patient left the ED. hb Signatures: Unique Carmona, Reg Aric mr Laura Alvarez, RN RN Leticia Howell PA-C PAMalika sb4 Corine Haider RN RN nj1 Jillian Haley RN RN kj2
[2023-09-19] MEDS ORDERED: ONDANSETRON 4 MG (ODT) TAB ONE (12:05)
[2023-09-19] MEDS ORDERED: HYDROCODONE/APAP 7.5/325 MG TAB ONE (12:05)
[2023-09-19 12:19] VITALS: BP 180/103; TEMP 98.7; O2SAT 98
== END 2023-09-19 12:15 | disposition home or self-care (01) ==
LOC: ER 11:20
DX: K04.7 Periapical abscess without sinus (principal)
CPT/HCPCS: 99283; Q0162

== ENCOUNTER 2023-10-07 02:37 | Emergency (ER) | payer SELFPAY ==
--- OUTSIDE RECORDS SUMMARY | 2023-10-07 02:43 | XMS REPORT | Continuity of Care Document ---
Author Name Unknown Address [address] [facility] [place] [address] [facility] thconnect Address [address] [facility] [address] [place] [address] Care Team Providers Care Reel Assembler Name Role Phone NO, PCP Primary Care Physician Unavailab BYRON Olsen Attending Clinician Unavailable JOSE LUIS BOWLING Attending Clinician UnavailJose Luis Castañeda Attending Clinician [phone]- [phone] Juani Flores MD Attending Clinician [phone] Soumya Schaeffer LVN Attending Clinician [phone] Juani Leal Attending Clinician [phone] Juan Amaya MD Attending Clinician [phone] JUAN AMAYA Attending Clinician Unavailable Ros Moore MD Attending Clinician [phone] Delfin Singleton Attending Clinician Unavailable Juan Amaya MD Admitting Clinician [phone] JUAN AMAYA Admitting Clinician Unavailable Payers Payer Name Policy Type Policy Number Effective Date Expirati on Date Source Problems Condition Name Condition Details Condition Category Status Onset Date Resolution Date Last Treatment Date Treating Clinician Comments Source Complicate d UTI (urinary tract infection) Complicate d UTI (urinary tract infection) Disease Active 2 00:00: 00 [facility] Abnormal uterine bleeding (AUB) Abnormal uterine bleeding (AUB) Disease Active 03-20 00:00: 00 [facility] Anemia, unspecifie d type Anemia, unspecifie d type Disease Active 03-19 00:00: 00 [facility] Fall Problem Active [facility] Sprain of right wrist Problem Active [facility] Allergies, Adverse Reactions, Alerts Allergy Name Allergy Type Status Severity Reaction(s) Onset Date Inactive Date Treating Clinician Comments Source Penicill in Allergy to substanc e Active Severe ANGIO EDEMA 03-23 00:00: 00 [facility] Penicill ins Propensi ty to adverse reaction s Active Anaphylaxis 03-19 00:00: 00 [facility] Penicill ins Propensi ty to adverse reaction s Active Anaphylaxis 03-19 00:00: 00 [facility] PENICILL INS Drug Class Active Anaphylaxis 03-19 00:00: 00 [facility] Penicill ins DA Active [facility] NO KNOWN ALLERGIE S Drug Class Active [facility] Social History Social Habit Start Date Stop Date Quantity Comments Source History of tobacco use [facility] Exposure to SARS-CoV-2 (event) 2022-01-25 00:00:00 2022-02-04 21:00:00 Not sure [facility] Alcohol intake 2021-03-24 00:00:00 2021-03-24 00:00:00 Ex-drinker (finding) [facility] Tobacco use and exposure 2021-03-20 00:00:00 2021-03-20 00:00:00 Smokeless tobacco non-user [facility] Sex Assigned At 1970 00:00:00 1970 00:00:00 Female [facility] Smoking Status Start Date Stop Date Source Never smoked tobacco (finding) [facility] Medications Ordered Medication Name Filled Medication Name Start Date Stop Date Current Medication? Ordering Clinician Indication Dosage Frequency Signature (SIG) Comments Components Source Hydrocodone Bit/Acetami nophen (Hydrocodon -Acetaminop h 7.5-325) 7.5 Mg-325 Mg TABLET Hydrocodone Bit/Acetami nophen (Hydrocodon -Acetaminop h 7.5-325) 7.5 Mg-325 Mg TABLET 03-23 23:04: 00 Yes 1 Every 6 Hours as needed for Pain [facility] Diclofenac Sodium Diclofenac Sodium 03-23 23:01: 00 Yes 1 Three Times Daily With Meals for Pain/Infla mmation [facility] erythromyci n 5 mg/gram (0.5 %) ophthalmic ointment 2021-02 00:00: 00 02-12 05:59 :00 No [id number] .5[in_u s] Place 0.5 Inches in both eyes in the morning and 0.5 Inches at noon and 0.5 Inches in the evening. Do all this for 7 days. Continue until you follow up with eye doctor. [facility] metroNIDAZO LE 500 mg tablet 03-25 00:00: 00 03-26 05:59 :00 No [id number] 2000mg Take 4 tablets by mouth once now for 1 dose. Do not drink alcohol while taking this medication . [facility] potassium chloride in water 10 mEq/100 mL RTU 10 mEq 03-22 17:00: 00 03-22 19:13 :00 No 10meq 10 mEq, IV Piggyback, Q1H, 2 doses, First dose on 03/22/21 at 1100, Last dose on 03/22/21 at 1200, Administer over 60 Minutes, 100 mL [facility] KCL (KLOR-CON M20) tablet 40 mEq 03-22 15:45: 00 03-23 00:00 :06 No 40meq 40 mEq, Oral, BID, First dose on 03/22/21 at 0945, Until Discontinu ed, Routine [facility] ferrous sulfate 325 mg (65 mg iron) tablet 03-22 00:00: 00 04-22 04:59 :00 No [id number] 325mg Take 1 tablet by mouth 2 (two) times daily for 30 days. [facility] lactobacill us acidophilus 03-22 00:00: 04-02 05:59 :00 No [id number] 1mg Take 2 tablets by mouth 2 (two) times daily for 10 days. [facility] levoFLOXaci n (LEVAQUIN) 750 mg tablet 03-22 00:00: 00 03-26 05:59 :00 No [id number] 750mg Take 1 tablet by mouth every 24 (twenty-fo ur) hours for 3 days. [facility] water for irrigation irrigation solution 03-21 20:26: 00 03-21 22:44 :27 No PRN, Starting on Wed03/21/21 at 1426, Until Wed03/21/21 at 1644, Routine, Intra-op [facility] simethicone (GAS RELIEF (SIMETHICON E)) 40 mg/0.6 mL drops 03-21 20:26: 00 03-21 22:44 :27 No PRN, Starting on Wed03/21/21 at 1426, Until Wed03/21/21 at 1644, Routine, Intra-op [facility] sodium phosphates (READY-TO-U SE ENEMA) 19-7 gram/118 mL enema 1 Enema 03-21 15:45: 00 03-21 15:01 :00 No 1{enema } 1 Enema, Rectal, ONCE, 1 dose, On 03/21/21 at 0945, Routine [facility] sodium phosphate 30 mmol in NaCl 0.9% (NS) 250 mL piggyback 03-21 14:45: 00 03-22 02:44 :00 No 30mmol 30 mmol, IV Piggyback, ONCE, 1 dose, On Wed03/21/21 at 0845, Administer over 4 Hours, 250 mL [facility] iron sucrose (VENOFER) 300 mg in NaCl 0.9% (NS) 250 mL infusion 03-21 14:45: 00 03-22 01:15 :00 No 300mg 300 mg, IV Infusion, ONCE, Administer over 2.5 Hours, On Wed03/21/21 at 0845, For 1 dose [facility] diphenhydrA MINE (BENADRYL) injection 25 mg 03-21 14:00: 00 03-21 15:54 :00 No 25mg 25 mg, Slow IV Push, ONCE, 1 dose, On Wed03/21/21 at 0800, Routine [facility] diphenhydrA MINE (BENADRYL) tablet 25 mg 03-21 05:49: 59 03-23 00:00 :06 No 25mg 25 mg, Oral, Q4HPRN, Starting on Alycia 03/20/21 at 2349, Until 03/22/21 at 1800, Routine, Itching [facility] levoFLOXaci n in D5W (LEVAQUIN) 750 mg/150 mL Piggyback 750 mg 03-21 05:00: 00 03-23 00:00 :06 No 750mg 750 mg, IV Piggyback, Q24H ABX, First dose on Alycia 03/20/21 at 2300, Until Discontinu ed, Administer over 90 Minutes, 150 mL
Reas on for Anti-Infec tive: Empiric Therapy for Suspected Infection& lt;br>Empi zack Therapy Site: Urine
D uration of therapy: 7 days [facility] bisacodyL (DULCOLAX) tablet 10 mg 03-21 02:00: 00 03-21 03:00 :00 No 10mg 10 mg, Oral, ONCE AT 1999, 1 dose, On Alycia 03/20/21 at 2000, Routine [facility] bisacodyL (DULCOLAX) tablet 10 mg 03-20 22:45: 00 03-20 23:17 :00 No 10mg 10 mg, Oral, ONCE, 1 dose, On Wed03/20/21 at 1645, Routine [facility] peg-electro lyte soln (GOLYTELY) 236-22.74-6 .74 -5.86 gram solution 4,000 mL 03-20 22:45: 00 03-20 23:17 :00 No 4000mL 4,000 mL, Oral, ONCE, 1 dose, On Alycia 03/20/21 at 1645, Routine [facility] iohexol (OMNIPAQUE 350 BULK-150 mL) injection 120 mL 03-20 16:30: 00 03-20 16:30 :00 No [id number] 100 120mL 120 mL, Intravenou s, ONCE, 1 dose, On Wed03/20/21 at 1030, Routine [facility] diphenhydrA MINE (BENADRYL) injection 50 mg 03-20 15:45: 00 03-20 14:56 :00 No 50mg 50 mg, Slow IV Push, ONCE, 1 dose, On Wed03/20/21 at 0945, Routine [facility] polyethylen e glycol 3350 powder 17 g 03-20 15:00: 00 03-22 14:40 :00 No 17g 17 g, Oral, DAILY, 2 doses, First dose on Wed03/20/21 at 0900, Last dose on Wed03/21/21 at 0900, Routine [facility] pantoprazol e (PROTONIX) injection 40 mg 03-20 14:30: 00 03-23 00:00 :06 No 40mg 40 mg, Slow IV Push, Q24H, First dose on Wed03/20/21 at 0830, Until Discontinu ed [facility] NaCl 0.9% (NS) IV infusion 1,000 mL 03-20 14:15: 00 03-23 00:00 :06 No 1000mL at 100 mL/hr, IV Infusion, CONTINUOUS , Starting on Wed03/20/21 at 0815, Until 2/12/22 at 1800, Routine [facility] sennosides (SENOKOT) tablet 8.6 mg 03-20 14:00: 00 03-23 00:00 :06 No 8.6mg 8.6 mg, Oral, BID, First dose on Alycia 03/20/21 at 0800, Until Discontinu ed, Routine [facility] lactobacill us acidophilus tablet 1 mg 03-20 14:00: 00 03-23 00:00 :06 No 1mg 1 mg, Oral, BID, First dose on Alycia 03/20/21 at 0800, Until Discontinu ed, Routine [facility] docusate (COLACE) capsule 100 mg 03-20 14:00: 00 03-23 00:00 :06 No 100mg 100 mg, Oral, BID, First dose on Alycia 03/20/21 at 0800, Until Discontinu ed, Routine [facility] levoFLOXaci n in D5W (LEVAQUIN) 250 mg/50 mL Piggyback 250 mg 03-20 09:30: 00 03-20 11:34 :00 No 250mg 250 mg, IV Piggyback, ONCE, 1 dose, On Alycia 03/20/21 at 0330, Administer over 60 Minutes, 50 mL
Reas on for Anti-Infec tive: Empiric Therapy for Suspected Infection< br>Empiric Therapy Site: Urine
D uration of therapy: 7 days [facility] ondansetron (ZOFRAN (PF)) injection 4 mg 03-20 08:25: 32 03-23 00:00 :06 No 4mg 4 mg, Slow IV Push, Q6HPRN, Starting on Alycia 03/20/21 at 0225, Until 03/22/21 at 1800, Routine, Nausea and Vomiting (N/V) [facility] levoFLOXaci n in D5W (LEVAQUIN) 500 mg/100 mL Piggyback 500 mg 03-20 05:00: 00 2022- 02-10 05:03 :00 No 500mg 500 mg, IV Piggyback, ONCE, 1 dose, On Wed03/19/21 at 2300, Administer over 60 Minutes, 100 mL
Reas on for Anti-Infec tive: Documented Infection< br>Documen dasha Infection Site: Urine
D uration of Therapy: Other (see Comments) [facility] Vital Signs Vital Name Observation Time Observation Value Comments S ource Oxygen saturation by Pulse oximetry 2022-03-23 23:27:00 100 /min [facility] BP Diastolic 2022-03-23 23:27:00 81 mm[Hg] [facility] Height 2022-03-23 21:38:00 157.975349 cm [facility] Weight 2022-03-23 21:38:00 68.092984 kg [facility] BMI (Body Mass Index) 2022-03-23 21:38:00 27.4 kg/m2 [facility] Systolic blood pressure 2022-02-05 03:03:00 137 mm[Hg] [facility] Diastolic blood pressure 2022-02-05 03:03:00 89 mm[Hg] [facility] Heart rate 2022-02-05 03:03:00 67 /min [facility] Body temperature 2022-02-05 03:03:00 36.61 Elle [facility] Respiratory rate 2022-02-05 03:03:00 18 /min [facility] Body weight 2022-02-05 03:03:00 70.308 kg [facility] BMI 2022-02-05 03:03:00 28.35 kg/m2 [facility] Oxygen saturation in Arterial blood by Pulse oximetry 2022-02-05 03:03:00 99 /min [facility] Oxygen saturation in Arterial blood by Pulse oximetry 2021-03-22 17:10:00 98 /min [facility] Systolic blood pressure 2021-03-22 17:10:00 110 mm[Hg] [facility] Diastolic blood pressure 2021-03-22 17:10:00 67 mm[Hg] [facility] Heart rate 2021-03-22 17:10:00 65 /min [facility] Body temperature 2021-03-22 17:10:00 36.61 Elle [facility] Respiratory rate 2021-03-22 17:10:00 16 /min [facility] Body weight 2021-03-21 09:21:00 69.4 kg [facility] BMI 2021-03-21 09:21:00 27.98 kg/m2 [facility] Body height 2021-03-20 08:30:00 157.5 cm [facility] Systolic blood pressure 2021-03-21 19:01:00 111 mm[Hg] [facility] Diastolic blood pressure 2021-03-21 19:01:00 67 mm[Hg] [facility] Heart rate 2021-03-21 19:01:00 66 /[facility] Body temperature 2021-03-21 19:01:00 36.78 Elle [facility] Respiratory rate 2021-03-21 19:01:00 18 /min [facility] Oxygen saturation in Arterial blood by Pulse oximetry 2021-03-21 19:01:00 99 /min [facility] Body weight 2021-03-21 09:21:00 69.4 kg [facility] BMI 2021-03-21 09:21:00 27.98 kg/m2 [facility] Body height 2021-03-20 08:30:00 157.5 cm [facility] Procedures Procedure Date / Time Performed Performing Clinician Source CONSENT/REFUSAL FOR DIAGNOSI S AND TREATMENT 2022-02-05 03:03:35 Doctor Unassigned, [place] MAGNESIUM 2021-03-22 14:53:00 Elissa [facility] BASIC METABOLIC PANEL (NA, K , CL, CO2, GLUCOSE, BUN, CREATININE, CA) 2021-03-22 14:53:00 [facility]FF 2021-03-22 14:53:00 [facility] 2021-03-22 14:53:00 [facility] (NA, K , CL, CO2, GLUCOSE, BUN, CREATININE, CA) 2021-03-22 14:53:00 Elissa [facility] CBC WITHOUT DIFF 2021-03-22 14:53:00 [facility] HORMONE 2021-03-22 09:06:00 Juan Amaya [facility] BASIC METABOLIC PANEL (NA, K , CL, CO2, GLUCOSE, BUN, CREATININE, CA) 2021-03-22 09:06:00 [facility] CBC WITH DIFF 2021-03-22 09:06:00 [facility] THYROID STIMULATING HORMONE 2021-03-22 09:06:00 Jose Luis benny [facility] BASIC METABOLIC PANEL (NA, K , CL, CO2, GLUCOSE, BUN, CREATININE, CA) 2021-03-22 09:06:00 [facility] 2021-03-22 09:06:00 [facility] WITH DIFF 2021-03-21 22:52:00 Meryl [facility] PROTHROMBIN TIME / INR 2021-03-21 22:52:00 Meryl [facility] FIBRINOGEN 2021-03-21 22:52:00 Meryl [facility] CBC WITH DIFF 2021-03-21 22:52:00 Alquici-Rick [facility] PROTHROMBIN TIME / INR 2021-03-21 22:52:00 Meryl [facility] FIBRINOGEN 2021-03-21 22:52:00 Meryl [facility] PREPARE PACKED RBC 2021-03-21 20:49:47 [facility] ([facility] 2021-03-21 20:46:03 Juan Amaya [facility] COLONOSCOPY (ENDO) 2021-03-21 20:46:03 Jose Luis [facility] EGD (ENDO) 2021-03-21 20:11:29 Jose Luis [facility] EGD (ENDO) 2021-03-21 20:11:29 Jose Luis [facility] ESOPHAGOGASTRODUODENOSCOPY 2021-03-21 20:11:00 Ros Moore [facility] COLONOSCOPY 2021-03-21 20:11:00 [facility] 2021-03-21 18:31:00 Juani Flores [facility] TRANSFUSE PACKED RBC 2021-03-21 16:27:00 Elissa [facility] TRANSFUSE PACKED RBC 2021-03-21 16:27:00 Elissa [facility] PREPARE PACKED RBC 2021-03-21 16:13:59 Jose Luis [facility] PREPARE PACKED RBC 2021-03-21 16:13:59 Jose Luis [facility] BASIC METABOLIC PANEL (NA, K , CL, CO2, GLUCOSE, BUN, CREATININE, CA) 2021-03-21 10:02:00 [facility] WITH DIFF 2021-03-21 10:02:00 [facility] BASIC METABOLIC PANEL (NA, K , CL, CO2, GLUCOSE, BUN, CREATININE, CA) 2021-03-21 10:02:00 Cameron Varela [facility] CBC WITH DIFF 2021-03-21 10:02:00 Cameron Varela [facility] OCCULT (GUAIAC) BLOOD 2021-03-21 03:01:00 Jose Luis [facility] OCCULT (GUAIAC) BLOOD 2021-03-21 03:01:00 Jose Luis [facility] CBC WITH DIFF 2021-03-20 23:24:00 Jose Luis [facility] CBC WITH DIFF 2021-03-20 23:24:00 Jose Luis [facility] TRXN WORKUP-ABBREVIATED 2021-03-20 19:52:27 Jose Luis [facility] TRXN WORKUP-ABBREVIATED 2021-03-20 19:52:27 Juan Amaya [facility] US PELVIS COMPLETE WITH TRANSVAGINAL 2021-03-20 [facility]:00[facility] 2021-03-20 [facility]:00[facility] W CONTRAST 2021-03-20 16:23:17 Jose Luis [facility] CT ABDOMEN PELVIS W CONTRAST 2021-03-20 16:23:17 Jose Luis [facility] URINALYSIS 2021-03-20 15:00:00 Jose Luis [facility] URINALYSIS 2021-03-20 15:00:00 Jose Luis [facility] TRANSFUSE PACKED RBC 2021-03-20 11:02:00 Jose Luis [facility] TRANSFUSE PACKED RBC 2021-03-20 11:02:00 Jose Luis [facility] BLOOD CULTURE SCREEN 2021-03-20 10:08:00 Jose Luis [facility] BLOOD CULTURE SCREEN 2021-03-20 10:08:00 Jose Luis [facility] BLOOD CULTURE SCREEN 2021-03-20 09:59:00 Jose Luis [facility] BLOOD CULTURE SCREEN 2021-03-20 09:59:00 Jose Luis [facility] SEDIMENTATION RATE 2021-03-20 09:15:00 Jose Luis [facility] PROTHROMBIN TIME / INR 2021-03-20 09:15:00 Jose Luis [facility] SEDIMENTATION RATE 2021-03-20 09:15:00 Jose Luis [facility] PROTHROMBIN TIME / INR 2021-03-20 09:15:00 Jose Luis [facility] URINE CULTURE 2021-03-20 09:06:00 Jose Luis [facility] URINE CULTURE 2021-03-20 09:06:00 Jose Luis [facility] PHOSPHORUS 2021-03-20 09:00:00 Jose Luis [facility] MAGNESIUM 2021-03-20 09:00:00 Jose Luis [facility] FERRITIN SERUM 2021-03-20 09:00:00 Jose Luis [facility] PROLACTIN 2021-03-20 09:00:00 Mark Juani [facility] VITAMIN B12, LEVEL 2021-03-20 09:00:00 Jose Luis [facility] FOLATE 2021-03-20 09:00:00 Jose Luis [facility] LIPID PANEL ([id number])(TOTAL CHOLESTEROL, TRIGLYCERIDES, HDL) 2021-03-20 09:00:00 Jose Luis [facility] VITAMIN D, 25-OH 2021-03-20 09:00:00 Jose Luis [facility] PROCALCITONIN 2021-03-20 09:00:00 Jose Luis [facility] PHOSPHORUS 2021-03-20 09:00:00 Jose Luis [facility] MAGNESIUM 2021-03-20 09:00:00 Jose Luis [facility] FERRITIN SERUM 2021-03-20 09:00:00 Jose Luis [facility] PROLACTIN 2021-03-20 09:00:00 Juani Flores [facility] VITAMIN B12, LEVEL 2021-03-20 09:00:00 Jose Luis [facility] FOLATE 2021-03-20 09:00:00 Jose Luis [facility] LIPID PANEL ([id number])(TOTAL CHOLESTEROL, TRIGLYCERIDES, HDL) 2021-03-20 09:00:00 Jose Luis [facility] VITAMIN D, 25-OH 2021-03-20 09:00:00 Jose Luis [facility] PROCALCITONIN 2021-03-20 09:00:00 Jose Luis [facility] CRITICAL CARE 2021-03-20 05:00:00 Juani Pang [facility] CRITICAL CARE 2021-03-20 05:00:00 Juani Pang [facility] TRANSFUSE PACKED RBC 2021-03-20 04:43:00 Juani Pang [facility] TRANSFUSE PACKED RBC 2021-03-20 04:43:00 Juani Pang [facility] PREPARE PACKED RBC 2021-03-20 04:36:09 Juani Pang [facility] PREPARE PACKED RBC 2021-03-20 04:36:09 Juani Pang [facility] COVID-19 (ID NOW RAPID TESTING) 04:03:00 Juani Pang [facility] LAB ONLY COVID INTERPRETATION 2021-03-20 04:03:00 Juani Pang [facility] COVID-19 (ID NOW RAPID TESTING) 04:03:00 Juani Pang [facility] LAB ONLY COVID INTERPRETATION 2021-03-20 04:03:00 Juani Pang [facility] HB ECG ROUTINE & RHYTHM STRIP 2021-03-20 03:56:17 Juani Pang [facility] HB ECG ROUTINE & RHYTHM STRIP 2021-03-20 03:56:17 Juani Pang [facility] HB ABO GROUPING 2021-03-20 03:45:00 Juani Pang [facility] HB ABO GROUPING 2021-03-20 03:45:00 Juani Pang [facility] POCT TEST 2021-03-20 02:23:00 Juani Pang [facility] POCT TEST 2021-03-20 02:23:00 Juani Pang [facility] LIPASE 2021-03-20 02:22:00 Juani Pang [facility] TROPONIN I 2021-03-20 02:22:00 Juani Pang [facility] COMP. METABOLIC PANEL ([id number]) 2021-03-20 02:22:00 Juani Pang [facility] IRON PANEL 2021-03-20 02:22:00 Juani Pang [facility] CBC WITH DIFF 2021-03-20 02:22:00 Juani Pang [facility] GLYCOSYLATED HEMOGLOBIN (A1C) 2021-03-20 02:22:00 Juan Amaya [facility] LIPASE 2021-03-20 02:22:00 Juani Pang [facility] TROPONIN I 2021-03-20 02:22:00 Juani Pang [facility] COMP. METABOLIC PANEL ([id number]) 2021-03-20 02:22:00 Juani Pang [facility] IRON PANEL 2021-03-20 02:22:00 Juani Pang [facility] CBC WITH DIFF 2021-03-20 02:22:00 Juani Pang [facility] GLYCOSYLATED HEMOGLOBIN (A1C) 2021-03-20 02:22:00 Juan Amaya [facility] URINALYSIS 2021-03-20 02:18:00 Juani Pang [facility] URINALYSIS 2021-03-20 02:18:00 Juani Pang [facility] XR KUB 2021-03-20 01:45:48 Juani Pang [facility] XR KUB 2021-03-20 01:45:48 Juani Pang [facility] NOTICE OF PRIVACY PRACTICES 2021-03-20 00:42:42 Doctor Unassigned, [facility] NOTICE OF PRIVACY PRACTICES 2021-03-20 00:42:42 Doctor Unassigned, [place] CONSENT/REFUSAL FOR DIAGNOSI S AND TREATMENT 2021-03-20 00:42:23 Doctor Unassigned, [place] CONSENT/REFUSAL FOR DIAGNOSI S AND TREATMENT 2021-03-20 00:42:23 Doctor Unassigned, [place] HOSPITAL ADMISSION 2021-03-19 06:01:00 Doctor Unassigned, [facility] Plan of Care Planned Activity Planned Date Details Comments Source Instructions Wrist Sprain, Adult [facility] Encounters Start Date/Time End Date/Time Encounter Type Admission Type Attending [facility] Facility Care Department Encounter ID Source 2021-11-06 14:05:24 Outpatient [id number] [facility] 2022-03-23 21:34:00 2022-03-23 23:27:00 Departed Emergency Room 1 BYRON HUSSEIN [facility] [id number] [facility] 2022-03-23 20:34:00 2022-03-23 22:27:00 Emergency [facility] [id number] [facility] 2022-02-04 21:04:00 2022-02-04 22:07:00 Emergency X JOSE LUIS BOWLING [facility] [id number] [facility] 2022-02-04 21:04:00 2022-02-04 22:07:00 Emergency Jose Luis [facility] [id number] [facility] 2021-03-25 00:00:00 2021-03-25 00:00:00 Telephone José Floresn [facility] [id number] [facility] 2021-03-25 00:00:00 2021-03-25 00:00:00 Case Management MarkJuani [facility] 1.2.840.114 350.1.13.10 4.2.7.2.686 [id number] [facility] 2021-03-24 00:00:00 2021-03-24 00:00:00 Transition of Care Soumya Schaeffer 1.2.840.114 350.1.13.10 4.2.7.2.686 [id number] [facility] 2021-03-19 18:47:00 2021-03-22 15:15:00 Hospital Encounter Juani Pang [facility] 1.2.840.114 350.1.13.10 4.2.7.2.686 [id number] [facility] 2021-03-19 18:47:00 2021-03-22 15:15:00 Inpatient X JOSE LUIS [facility] TIM [id number] [facility] 2021-03-21 13:53:00 2021-03-21 15:06:00 Surgery Ros Moore [facility] 1.2.840.114 350.1.13.10 4.2.7.2.686 [id number] [facility] 2019-12-27 00:00:00 2019-12-27 00:00:00 Outpatient Delfin Singleton [facility] [id number] [facility] Results Test Description Test Time Test Comments Results Resul t Comments Source WRIST 3VW RT - HOPD 2022-03-23 21:19:00 [facility] 1970 Sex: F [place] [address] Patient Name: ANTONI BHANDARI MR #: [id number] : 1970 Age/Sex: 51/F Req #: [id number] Adm Physician: Ordered by: BYRON HUSSEIN MD Report #: [id number] Location: [facility] Room/Bed: Report: Diagnostic Imaging Report Status: Signed Procedure: [id number] HOPD/WRIST 3VW RT - HOPD Exam Date: 03/23/22 Exam Time: 2100 EXAMINATION: WRIST 3VW RT - HOPD INDICATION: Fall COMPARISON: None FINDINGS: Radiographs of the right wrist demonstrate no acute fracture or dislocation. Alignment is anatomic. Unremarkable soft tissues. IMPRESSION: No acute osseous injury Signed by: Anastasia Braun on 03/23/2022 9:19 PM Dictated By: ANASTASIA BRAUN MD 20 Transcribed By: [place] TelematiqueRIWillCall on 03/23/222118 COPY TO: BYRON HUSSEIN MD [facility] WITHOUT [id number] 16:23:16* Test Item Value Reference Range Interpretation [...] result as normal/abnormal. MPV (test code = 22764-6) Not Measured RDW-CV (test code = 788-0) 23.1 % 12.0-15.5 H RDW-SD (test code = 04485-3) 59.8 fL 39.0-49.9 H NRBC x10^3 (test code = 2142065014) <0.01 See_Comment [Automated Instant Opiniona ge] The system which generated this result transmitted reference range: 10*3/?L. The reference range was not used to interpret this result as normal/abnormal. NRBC/100 WBC (test code = 2240473783) See_Comment [Automated Instant Opiniona ge] The system which generated this result transmitted reference range: 0.0 - 10.0 /100 WBCs. The reference range was not used to interpret this result as normal/abnormal. IPF % (test code = 6488777931) 6.8 % 1.3-7.7 Platelet count measured by fluorescence method. Lab Interpretation (test code = 90234-1) [facility]* Test Item Value Reference Range Interpretation Comme nts MAGNESIUM (test code = 9295699801) 2.0 mg/dL 1.7-2.4 Lab Interpretation (test cod e = 26371-1) [facility] 15:33:53* Test Item Value Reference Range Interpretation Comme nts MAGNESIUM (test code = 3688397090) 2.0 mg/dL 1.7-2.4 Lab Interpretation (test cod e = 72373-3) [facility] (NA, K, CL, CO2, GLUCOSE, BUN, CREATININE, CA)2021-03-22 15:33:33* Test Item Value Reference Range Interpretation Comme nts NA (test code = 7544449822) 137 mmol/L 135-145 K (test code = 9638165809) 3.0 mmol/L 3.5-5.0 L CL (test code = 4938826151) 112 mmol/L 98-108 H CO2 TOTAL (test code = 3940417999) 23 mmol/L 23-31 AGAP (test code = 5848135131) 2-16 BUN (test code = 3710526745) 4 mg/dL 7-23 L GLUCOSE (test code = 3106412768) 141 mg/dL 70-110 H CREATININE (test code = 3392027154) 0.50 mg/dL 0.50-1.04 CALCIUM (test code = 4982899465) 8.0 mg/dL 8.6-10.6 L eGFR (test code = 8907860782) mL/min/1.73m2 BARTOLOME (test code = BARTOLOME) Association [...] imaging tests). Lab Interpretation (test code = 35612-0) Abnormal [facility] METABOLIC PANEL (NA, K, CL, CO2, GLUCOSE, BUN, CREATININE, CA)2021-03-22 15:33:33* Test Item Value Reference Range Interpretation Comme nts NA (test code = 2449756172) 137 mmol/L 135-145 K (test code = 7007195951) 3.0 mmol/L 3.5-5.0 L CL (test code = 3339364378) 112 mmol/L 98-108 H CO2 TOTAL (test code = 7698028694) 23 mmol/L 23-31 AGAP (test code = 5304198137) 2-16 BUN (test code = 9959829705) 4 mg/dL 7-23 L GLUCOSE (test code = 1009519918) 141 mg/dL 70-110 H CREATININE (test code = 5688977955) 0.50 mg/dL 0.50-1.04 CALCIUM (test code = 1649209860) 8.0 mg/dL 8.6-10.6 L eGFR (test code = 0979040398) mL/min/1.73m2 BARTOLOME (test code = BARTOLOME) Association [...] imaging tests). Lab Interpretation (test code = 52065-7) [facility] [id number] 12:48:23 * Test Item Value Reference Range Interpretation Comme nts TSH (test code = 8366863470) See_Comment [Automated Startup Weekend] The system which generated this result transmitted reference range: 0.45 - 4.70 mIU/L. The reference range was not used to interpret this result as normal/abnormal. Lab Interpretation (test code = 20248-0) [facility] [id number] 12:48:23 * Test Item Value Reference Range Interpretation Comme nts TSH (test code = 5897473284) See_Comment [Automated Start[employer] Weekend] The system which generated this result transmitted reference range: 0.45 - 4.70 mIU/L. The reference range was not used to interpret this result as normal/abnormal. Lab Interpretation (test code = 90110-2) Normal [facility] WITH [id number] 12:00:37* Test Item Value Reference Range Interpretation [...] g/dL 31.6-35.1 L RDW-SD (test code = 65784-6) 60.1 fL 39.0-49.9 H RDW-CV (test code = 788-0) 23.0 % 12.0-15.5 H PLT (test code = 777-3) See_Comment L [Automated messa ge] The system which generated this result transmitted reference range: 166 - 358 10*3/?L. The reference range was not used to interpret this result as normal/abnormal. MPV (test code = 84153-1) Not Measured NRBC/100 WBC (test code = 5876555219) See_Comment [Automated Storie ssage] The system which generated this result transmitted reference range: 0.0 - 10.0 /100 WBCs. The reference range was not used to interpret this result as normal/abnormal. NRBC x10^3 (test code = 0537909394) <0.01 See_Comment [Automated messa ge] The system which generated this result transmitted reference range: 10*3/?L. The reference range was not used to interpret this result as normal/abnormal. GRAN MAT (NEUT) % (test code = 770-8) 64.4 % IMM GRAN % (test code = 0456332730) 0.80 % LYMPH % (test code = 736-9) 22.1 % MONO % (test code = 5905-5) 9.6 % EOS % (test code = 713-8) 2.0 % BASO % (test code = 706-2) 1.1 % GRAN MAT x10^3(ANC) (test code = 1846766307) 2.27 10*3/uL 1.88-7.09 IMM GRAN x10^3 (test code = 2592590310) 0.03 10*3/uL 0.00-0.06 LYMPH x10^3 (test code = 731-0) 0.78 10*3/uL 1.32-3.29 L MONO x10^3 (test code = 742-7) 0.34 10*3/uL 0.33-0.92 EOS x10^3 (test code = 711-2) 0.07 10*3/uL 0.03-0.39 BASO x10^3 (test code = 704-7) 0.04 10*3/uL 0.01-0.07 Lab Interpretation (test code = 96701-7) Abnormal [facility] WITH [id number] 12:00:37* Test Item Value Reference Range Interpretation [...] g/dL 31.6-35.1 L RDW-SD (test code = 44664-1) 60.1 fL 39.0-49.9 H RDW-CV (test code = 788-0) 23.0 % 12.0-15.5 H PLT (test code = 777-3) See_Comment L [Automated messa ge] The system which generated this result transmitted reference range: 166 - 358 10*3/?L. The reference range was not used to interpret this result as normal/abnormal. MPV (test code = 54640-1) Not Measured NRBC/100 WBC (test code = 7344006487) See_Comment [Automated me ssage] The system which generated this result transmitted reference range: 0.0 - 10.0 /100 WBCs. The reference range was not used to interpret this result as normal/abnormal. NRBC x10^3 (test code = 7242506976) <0.01 See_Comment [Automated messa ge] The system which generated this result transmitted reference range: 10*3/?L. The reference range was not used to interpret this result as normal/abnormal. GRAN MAT (NEUT) % (test code = 770-8) 64.4 % IMM GRAN % (test code = 7465984360) 0.80 % LYMPH % (test code = 736-9) 22.1 % MONO % (test code = 5905-5) 9.6 % EOS % (test code = 713-8) 2.0 % BASO % (test code = 706-2) 1.1 % GRAN MAT x10^3(ANC) (test code = 2009861627) 2.27 10*3/uL 1.88-7.09 IMM GRAN x10^3 (test code = 3807325796) 0.03 10*3/uL 0.00-0.06 LYMPH x10^3 (test code = 731-0) 0.78 10*3/uL 1.32-3.29 L MONO x10^3 (test code = 742-7) 0.34 10*3/uL 0.33-0.92 EOS x10^3 (test code = 711-2) 0.07 10*3/uL 0.03-0.39 BASO x10^3 (test code = 704-7) 0.04 10*3/uL 0.01-0.07 Lab Interpretation (test code = 17247-8) Abnormal [facility] METABOLIC PANEL (NA, K, CL, CO2, GLUCOSE, BUN, CREATININE, CA)2021-03-22 11:22:36* Test Item Value Reference Range Interpretation Comme nts NA (test code = 4969937623) 138 mmol/L 135-145 K (test code = 6429199239) 3.0 mmol/L 3.5-5.0 L CL (test code = 5740103445) 112 mmol/L 98-108 H CO2 TOTAL (test code = 3510683808) 21 mmol/L 23-31 L AGAP (test code = 7541859712) 2-16 BUN (test code = 9420473907) 5 mg/dL 7-23 L GLUCOSE (test code = 6926694376) 90 mg/dL 70-110 CREATININE (test code = 5902942431) 0.49 mg/dL 0.50-1.04 L CALCIUM (test code = 7691235165) 8.2 mg/dL 8.6-10.6 L eGFR (test code = 7540302847) mL/min/1.73m2 BARTOLOME (test code = BARTOLOME) Association [...] imaging tests). Lab Interpretation (test code = 21743-9) Abnormal [facility] METABOLIC PANEL (NA, K, CL, CO2, GLUCOSE, BUN, CREATININE, CA)2021-03-22 11:22:36* Test Item Value Reference Range Interpretation Comme nts NA (test code = 2710940898) 138 mmol/L 135-145 K (test code = 0980026448) 3.0 mmol/L 3.5-5.0 L CL (test code = 8950754849) 112 mmol/L 98-108 H CO2 TOTAL (test code = 2829837054) 21 mmol/L 23-31 L AGAP (test code = 5659390870) 2-16 BUN (test code = 2366468355) 5 mg/dL 7-23 L GLUCOSE (test code = 5821005485) 90 mg/dL 70-110 CREATININE (test code = 1563918592) 0.49 mg/dL 0.50-1.04 L CALCIUM (test code = 1570687171) 8.2 mg/dL 8.6-10.6 L eGFR (test code = 1401000427) mL/min/1.73m2 BARTOLOME (test code = BARTOLOME) Association [...] imaging tests). Lab Interpretation (test code = 07552-9) Abnormal [facility] WITH [id number] 00:20:38* Test Item Value Reference Range Interpretation Comme nts WBC (test code = 6690-2) See_Comment L [Automated Start[employer] Weekend] The system which generated this result transmitted reference range: 4.30 - 11.10 10*3/?L. The reference range was not used to interpret this result as normal/abnormal. RBC (test code = 789-8) See_Comment L [Automated Start[employer] Weekend] The system which generated this result transmitted [...] g/dL 31.6-35.1 L RDW-SD (test code = 28641-4) 59.7 fL 39.0-49.9 H RDW-CV (test code = 788-0) 22.6 % 12.0-15.5 H PLT (test code = 777-3) See_Comment L [Automated messa ge] The system which generated this result transmitted reference range: 166 - 358 10*3/?L. The reference range was not used to interpret this result as normal/abnormal. MPV (test code = 83030-6) Not Measured NRBC/100 WBC (test code = 1604087268) See_Comment [Automated Storie ssage] The system which generated this result transmitted reference range: 0.0 - 10.0 /100 WBCs. The reference range was not used to interpret this result as normal/abnormal. NRBC x10^3 (test code = 0510639513) See_Comment [Automated messa ge] The system which generated this result transmitted reference range: 10*3/?L. The reference range was not used to interpret this result as normal/abnormal. GRAN MAT (NEUT) % (test code = 770-8) 63.8 % IMM GRAN % (test code = 2950821063) 0.80 % LYMPH % (test code = 736-9) 21.4 % MONO % (test code = 5905-5) 11.0 % EOS % (test code = 713-8) 1.9 % BASO % (test code = 706-2) 1.1 % GRAN MAT x10^3(ANC) (test code = 3455559864) 2.39 10*3/uL 1.88-7.09 IMM GRAN x10^3 (test code = 4788638256) 0.03 10*3/uL 0.00-0.06 LYMPH x10^3 (test code = 731-0) 0.80 10*3/uL 1.32-3.29 L MONO x10^3 (test code = 742-7) 0.41 10*3/uL 0.33-0.92 EOS x10^3 (test code = 711-2) 0.07 10*3/uL 0.03-0.39 BASO x10^3 (test code = 704-7) 0.04 10*3/uL 0.01-0.07 Lab Interpretation (test code = 59418-4) Abnormal [facility] WITH [id number] 00:20:38* Test Item Value Reference Range Interpretation Comme nts WBC (test code = 6690-2) See_Comment L [Automated messa ge] The system which generated this result transmitted reference range: 4.30 - 11.10 10*3/?L. The reference range was not used to interpret this result as normal/abnormal. RBC (test code = 789-8) See_Comment L [Automated Instant Opiniona ge] The system which generated this result [...] g/dL 31.6-35.1 L RDW-SD (test code = 05627-3) 59.7 fL 39.0-49.9 H RDW-CV (test code = 788-0) 22.6 % 12.0-15.5 H PLT (test code = 777-3) See_Comment L [Automated Instant Opiniona ge] The system which generated this result transmitted reference range: 166 - 358 10*3/?L. The reference range was not used to interpret this result as normal/abnormal. MPV (test code = 70221-5) Not Measured NRBC/100 WBC (test code = 8240954944) See_Comment [Automated Storie ssage] The system which generated this result transmitted reference range: 0.0 - 10.0 /100 WBCs. The reference range was not used to interpret this result as normal/abnormal. NRBC x10^3 (test code = 9793226543) See_Comment [Automated Instant Opiniona ge] The system which generated this result transmitted reference range: 10*3/?L. The reference range was not used to interpret this result as normal/abnormal. GRAN MAT (NEUT) % (test code = 770-8) 63.8 % IMM GRAN % (test code = 6102819162) 0.80 % LYMPH % (test code = 736-9) 21.4 % MONO % (test code = 5905-5) 11.0 % EOS % (test code = 713-8) 1.9 % BASO % (test code = 706-2) 1.1 % GRAN MAT x10^3(ANC) (test code = 6863370699) 2.39 10*3/uL 1.88-7.09 IMM GRAN x10^3 (test code = 5483811758) 0.03 10*3/uL 0.00-0.06 LYMPH x10^3 (test code = 731-0) 0.80 10*3/uL 1.32-3.29 L MONO x10^3 (test code = 742-7) 0.41 10*3/uL 0.33-0.92 EOS x10^3 (test code = 711-2) 0.07 10*3/uL 0.03-0.39 BASO x10^3 (test code = 704-7) 0.04 10*3/uL 0.01-0.07 Lab Interpretation (test code = 96708-2) [facility] 00:19:57* Test Item Value Reference Range Interpretation Comme nts Fibrinogen (test code = 8437237389) 458 mg/dL 214-470 Lab Interpretation (test cod e = 24643-9) [facility]22[facility]12 00:19:57* Test Item Value Reference Range Interpretation Comme nts Fibrinogen (test code = 4716655564) 458 mg/dL 214-470 Lab Interpretation (test cod e = 51277-6) [facility] / [id number] 00:18:36* Test Item Value Reference Range Interpretation Comme nts PROTIME PATIENT (test code = 5964-2) See_Comment [Automated Instant Opiniona ge] The system which generated this result transmitted reference range: 12.0 - 14.7 Seconds. The reference range was not used to interpret this result as normal/abnormal. INR (test code = 6301-6) Normal INR <1.1; Warfarin Therapeutic range 2.0 to 3.0 or 2.5 to 3.5, depending upon the indications. Lab Interpretation (test code = 93578-9) [facility] / [id number] 00:18:36* Test Item Value Reference Range Interpretation Comme nts PROTIME PATIENT (test code = 5964-2) See_Comment [Automated Instant Opiniona Data Expedition] The system which generated this result transmitted reference range: 12.0 - 14.7 Seconds. The reference range was not used to interpret this result as normal/abnormal. INR (test code = 6301-6) Normal INR <1.1; Warfarin Therapeutic range 2.0 to 3.0 or 2.5 to 3.5, depending upon the indications. Lab Interpretation (test code = 73836-7) [facility]2022-[facility]11 19:25:57* Test Item Value Reference Range Interpretation Comme nts PROLACTIN (test code = 6000260859) 10.3 ng/mL 2.7-19.6 Lab Interpretation (test cod e = 57661-2) [facility] 19:25:57* Test Item Value Reference Range Interpretation Comme nts PROLACTIN (test code = 4659381986) 10.3 ng/mL 2.7-19.6 Lab Interpretation (test cod e = 92696-2) Normal [facility] WITH [id number] 13:55:22* Test Item Value Reference Range Interpretation Comme nts WBC (test code = 6690-2) See_Comment L [Automated Instant Opiniona Data Expedition] The system which generated this result transmitted reference range: 4.30 - 11.10 10*3/?L. The reference range was not used to interpret this result as normal/abnormal. RBC (test code = 789-8) See_Comment L [Automated Instant Opiniona Data Expedition] The system which generated this result transmitted [...] g/dL 31.6-35.1 L RDW-SD (test code = 39537-9) 54.9 fL 39.0-49.9 H RDW-CV (test code = 788-0) 21.4 % 12.0-15.5 H PLT (test code = 777-3) See_Comment L [Automated Instant Opiniona ge] The system which generated this result transmitted reference range: 166 - 358 10*3/?L. The reference range was not used to interpret this result as normal/abnormal. MPV (test code = 17485-6) Not Measured IPF % (test code = 5740506485) 8.2 % 1.3-7.7 H Platelet count measured by fluorescence method. NRBC/100 WBC (test code = 9032128238) See_Comment [Automated Storie ssage] The system which generated this result transmitted reference range: 0.0 - 10.0 /100 WBCs. The reference range was not used to interpret this result as normal/abnormal. NRBC x10^3 (test code = 1043100487) <0.01 See_Comment [Automated Instant Opiniona ge] The system which generated this result transmitted reference range: 10*3/?L. The reference range was not used to interpret this result as normal/abnormal. GRAN MAT (NEUT) % (test code = 770-8) 55.7 % IMM GRAN % (test code = 2077776789) 0.60 % LYMPH % (test code = 736-9) 28.4 % MONO % (test code = 5905-5) 12.2 % EOS % (test code = 713-8) 1.7 % BASO % (test code = 706-2) 1.4 % GRAN MAT x10^3(ANC) (test code = 1159292736) 1.96 10*3/uL 1.88-7.09 IMM GRAN x10^3 (test code = 8583151733) <0.03 0.00-0.06 LYMPH x10^3 (test code = 731-0) 1.00 10*3/uL 1.32-3.29 L MONO x10^3 (test code = 742-7) 0.43 10*3/uL 0.33-0.92 EOS x10^3 (test code = 711-2) 0.06 10*3/uL 0.03-0.39 BASO x10^3 (test code = 704-7) 0.05 10*3/uL 0.01-0.07 ELLIPTO/OVAL (test code = 21554-0) 2+ See_Comment A [Automated messa ge] The system which generated this result transmitted reference range: (none). The reference range was not used to interpret this result as normal/abnormal. POLYCHROMASIA (test code = 58241-4) 2+ See_Comment [Automated messa ge] The system which generated this result transmitted reference range: 2+. The reference range was not used to interpret this result as normal/abnormal. SPHEROCYTES (test code = 802-9) 1+ A Lab Interpretation (test code = 87337-3) Abnormal [facility] WITH [id number] 13:55:22* Test Item Value Reference Range Interpretation [...] g/dL 31.6-35.1 L RDW-SD (test code = 28175-4) 54.9 fL 39.0-49.9 H RDW-CV (test code = 788-0) 21.4 % 12.0-15.5 H PLT (test code = 777-3) See_Comment L [Automated Instant Opiniona ge] The system which generated this result transmitted reference range: 166 - 358 10*3/?L. The reference range was not used to interpret this result as normal/abnormal. MPV (test code = 80992-8) Not Measured IPF % (test code = 5333199439) 8.2 % 1.3-7.7 H Platelet count measured by fluorescence method. NRBC/100 WBC (test code = 9555000380) See_Comment [Automated Storie ssage] The system which generated this result transmitted reference range: 0.0 - 10.0 /100 WBCs. The reference range was not used to interpret this result as normal/abnormal. NRBC x10^3 (test code = 5261891533) <0.01 See_Comment [Automated Instant Opiniona ge] The system which generated this result transmitted reference range: 10*3/?L. The reference range was not used to interpret this result as normal/abnormal. GRAN MAT (NEUT) % (test code = 770-8) 55.7 % IMM GRAN % (test code = 3595537325) 0.60 % LYMPH % (test code = 736-9) 28.4 % MONO % (test code = 5905-5) 12.2 % EOS % (test code = 713-8) 1.7 % BASO % (test code = 706-2) 1.4 % GRAN MAT x10^3(ANC) (test code = 9442369705) 1.96 10*3/uL 1.88-7.09 IMM GRAN x10^3 (test code = 2513109638) <0.03 0.00-0.06 LYMPH x10^3 (test code = 731-0) 1.00 10*3/uL 1.32-3.29 L MONO x10^3 (test code = 742-7) 0.43 10*3/uL 0.33-0.92 EOS x10^3 (test code = 711-2) 0.06 10*3/uL 0.03-0.39 BASO x10^3 (test code = 704-7) 0.05 10*3/uL 0.01-0.07 ELLIPTO/OVAL (test code = 03957-4) 2+ See_Comment A [Automated Startup Weekend] The system which generated this result transmitted reference range: (none). The reference range was not used to interpret this result as normal/abnormal. POLYCHROMASIA (test code = 64709-4) 2+ See_Comment [Automated Instant Opiniona Data Expedition] The system which generated this result transmitted reference range: 2+. The reference range was not used to interpret this result as normal/abnormal. SPHEROCYTES (test code = 802-9) 1+ A Lab Interpretation (test code = 71789-3) Abnormal [facility] METABOLIC PANEL (NA, K, CL, CO2, GLUCOSE, BUN, CREATININE, CA)2021-03-21 12:06:02* Test Item Value Reference Range Interpretation Comme nts NA (test code = 7001805452) 138 mmol/L 135-145 K (test code = 5655667231) 3.7 mmol/L 3.5-5.0 CL (test code = 5171154726) 108 mmol/L 98-108 CO2 TOTAL (test code = 9904602372) 21 mmol/L 23-31 L AGAP (test code = 6288543661) 2-16 BUN (test code = 1287025224) 4 mg/dL 7-23 L GLUCOSE (test code = 5114051050) 97 mg/dL 70-110 CREATININE (test code = 7589631695) 0.54 mg/dL 0.50-1.04 CALCIUM (test code = 5294826337) 9.1 mg/dL 8.6-10.6 eGFR (test code = 8285966405) mL/min/1.73m2 BARTOLOME (test code = BARTOLOME) Association [...] imaging tests). Lab Interpretation (test code = 12701-4) [facility] (NA, K, CL, CO2, GLUCOSE, BUN, CREATININE, CA)2021-03-21 12:06:02* Test Item Value Reference Range Interpretation Comme nts NA (test code = 2218589229) 138 mmol/L 135-145 K (test code = 5760678755) 3.7 mmol/L 3.5-5.0 CL (test code = 4068049577) 108 mmol/L 98-108 CO2 TOTAL (test code = 6448650298) 21 mmol/L 23-31 L AGAP (test code = 6933218578) 2-16 BUN (test code = 4012148640) 4 mg/dL 7-23 L GLUCOSE (test code = 9743007666) 97 mg/dL 70-110 CREATININE (test code = 9462132369) 0.54 mg/dL 0.50-1.04 CALCIUM (test code = 4747163994) 9.1 mg/dL 8.6-10.6 eGFR (test code = 4586309422) mL/min/1.73m2 BARTOLOME (test code = BARTOLOME) Association [...] imaging tests). Lab Interpretation (test code = 83300-7) [facility] 08:41:33* Test Item Value Reference Range Interpretation Comme nts PHOSPHORUS (test code = 8717430953) 2.0 mg/dL 2.5-5.0 L Lab Interpretation (test cod e = 18837-3) [facility] 08:41:[facility]* Test Item Value Reference Range Interpretation Comme nts PHOSPHORUS (test code = 5535549055) 2.0 mg/dL 2.5-5.0 L Lab Interpretation (test cod e = 24446-8) [id number] 00:12:32* Test Item Value Reference Range Interpretation [...] g/dL 31.6-35.1 L RDW-SD (test code = 96366-8) 54.9 fL 39.0-49.9 H RDW-CV (test code = 788-0) 21.7 % 12.0-15.5 H PLT (test code = 777-3) See_Comment L [Automated messa ge] The system which generated this result transmitted reference range: 166 - 358 10*3/?L. The reference range was not used to interpret this result as normal/abnormal. MPV (test code = 11371-3) Not Measured NRBC/100 WBC (test code = 5434142006) See_Comment [Automated Storie ssage] The system which generated this result transmitted reference range: 0.0 - 10.0 /100 WBCs. The reference range was not used to interpret this result as normal/abnormal. NRBC x10^3 (test code = 3615673643) See_Comment [Automated messa ge] The system which generated this result transmitted reference range: 10*3/?L. The reference range was not used to interpret this result as normal/abnormal. GRAN MAT (NEUT) % (test code = 770-8) 66.6 % IMM GRAN % (test code = 6067703016) 0.30 % LYMPH % (test code = 736-9) 23.6 % MONO % (test code = 5905-5) 7.9 % EOS % (test code = 713-8) 0.8 % BASO % (test code = 706-2) 0.8 % GRAN MAT x10^3(ANC) (test code = 4504113952) 2.45 10*3/uL 1.88-7.09 IMM GRAN x10^3 (test code = 4727049644) <0.03 0.00-0.06 LYMPH x10^3 (test code = 731-0) 0.87 10*3/uL 1.32-3.29 L MONO x10^3 (test code = 742-7) 0.29 10*3/uL 0.33-0.92 L EOS x10^3 (test code = 711-2) 0.03 10*3/uL 0.03-0.39 BASO x10^3 (test code = 704-7) 0.03 10*3/uL 0.01-0.07 Lab Interpretation (test code = 49445-5) Abnormal [facility] WITH [id number] 00:12:32* Test Item Value Reference Range Interpretation [...] g/dL 31.6-35.1 L RDW-SD (test code = 52097-5) 54.9 fL 39.0-49.9 H RDW-CV (test code = 788-0) 21.7 % 12.0-15.5 H PLT (test code = 777-3) See_Comment L [Automated messa ge] The system which generated this result transmitted reference range: 166 - 358 10*3/?L. The reference range was not used to interpret this result as normal/abnormal. MPV (test code = 21968-3) Not Measured NRBC/100 WBC (test code = 5634167819) See_Comment [Automated me ssage] The system which generated this result transmitted reference range: 0.0 - 10.0 /100 WBCs. The reference range was not used to interpret this result as normal/abnormal. NRBC x10^3 (test code = 7068502964) See_Comment [Automated messa ge] The system which generated this result transmitted reference range: 10*3/?L. The reference range was not used to interpret this result as normal/abnormal. GRAN MAT (NEUT) % (test code = 770-8) 66.6 % IMM GRAN % (test code = 4261774956) 0.30 % LYMPH % (test code = 736-9) 23.6 % MONO % (test code = 5905-5) 7.9 % EOS % (test code = 713-8) 0.8 % BASO % (test code = 706-2) 0.8 % GRAN MAT x10^3(ANC) (test code = 0811155517) 2.45 10*3/uL 1.88-7.09 IMM GRAN x10^3 (test code = 4686306773) <0.03 0.00-0.06 LYMPH x10^3 (test code = 731-0) 0.87 10*3/uL 1.32-3.29 L MONO x10^3 (test code = 742-7) 0.29 10*3/uL 0.33-0.92 L EOS x10^3 (test code = 711-2) 0.03 10*3/uL 0.03-0.39 BASO x10^3 (test code = 704-7) 0.03 10*3/uL 0.01-0.07 Lab Interpretation (test code = 79475-6) [facility]45:47* Test Item Value Reference Range Interpretation Comme nts APPEARANCE (test code = 6139717193) Clear Clear COLOR (test code = 1190429728) Yellow Colorless A PH (test code = 0985787112) 4.8-8.0 SP GRAVITY (test code = 1482604437) 1.003-1.035 GLU U QUAL (test code = 4917849365) Negative Negative BLOOD (test code = 6413912828) Trace Negative A KETONES (test code = 7720026141) Negative Negative PROTEIN (test code = 2887-8) Trace Negative A UROBILIN (test code = 4386991308) Normal Normal BILIRUBIN (test code = 9364610154) Negative Negative NITRITE (test code = 9845224600) Negative Negative LEUK PATRICIA (test code = 4205032156) Positive Negative A RBC/HPF (test code = 9136399138) See_Comment H [Automated messa ge] The system which generated this result transmitted reference range: 0 - 3 HPF. The reference range was not used to interpret this result as normal/abnormal. WBC/HPF (test code = 4360783312) See_Comment H [Automated messa ge] The system which generated this result transmitted reference range: 0 - 5 HPF. The reference range was not used to interpret this result as normal/abnormal. BACTERIA (test code = 7425031640) Few Negative A MUCOUS (test code = 6988087910) Slight Negative LPF A SQ EPITH (test code = 4259124969) <1 See_Comment [Automated messa ge] The system which generated this result transmitted reference range: <=1 HPF. The reference range was not used to interpret this result as normal/abnormal. Lab Interpretation (test code = 21551-4) [facility] 21:45:47* Test Item Value Reference Range Interpretation Comme nts APPEARANCE (test code = 8650526505) Clear Clear COLOR (test code = 4596234943) Yellow Colorless A PH (test code = 2518904234) 4.8-8.0 SP GRAVITY (test code = 9832394022) 1.003-1.035 GLU U QUAL (test code = 3708306342) Negative Negative BLOOD (test code = 7805335100) Trace Negative A KETONES (test code = 2343665757) Negative Negative PROTEIN (test code = 2887-8) Trace Negative A UROBILIN (test code = 1284998161) Normal Normal BILIRUBIN (test code = 2079082825) Negative Negative NITRITE (test code = 1987467048) Negative Negative LEUK PATRICIA (test code = 1224375253) Positive Negative A RBC/HPF (test code = 7069549012) See_Comment H [Automated messa ge] The system which generated this result transmitted reference range: 0 - 3 HPF. The reference range was not used to interpret this result as normal/abnormal. WBC/HPF (test code = 9161228698) See_Comment H [Automated messa ge] The system which generated this result transmitted reference range: 0 - 5 HPF. The reference range was not used to interpret this result as normal/abnormal. BACTERIA (test code = 4751880141) Few Negative A MUCOUS (test code = 5171736977) Slight Negative LPF A SQ EPITH (test code = 6008388300) <1 See_Comment [Automated messa ge] The system which generated this result transmitted reference range: <=1 HPF. The reference range was not used to interpret this result as normal/abnormal. Lab Interpretation (test code = 17103-8) Abnormal [facility] [id number] 19:52:27* Test Item Value Reference Range Interpretation Comme nts CLERICAL CK (test code = 542) Acceptable Performed at [facility] Laboratory [facility] Blood [place] [address]Toll Free: [phone] No. [id number] POST ABO & RH (test code = 1616) O Positive Performed at [facility] Blood [place] [address]Toll Free: [phone] No. [id number] POST CASI (test code = 1619) Negative Performed at [place] [address]Toll Free: [phone] No. [id number] POST SERUM (test code = 1620) Slightly Icteric Performed at [place] [address]Toll Free: [phone] No. [id number] PRELIM RESULT (test code = 3962) Negative TxRxn Negative: No wilmer dence of a hemolytic transfusion reaction; Blood Bank physician interpretation to follow.Performed at [facility] Laboratory [place] [address]Toll Free: [phone] No. [id number] PRODUCT (test code = 2110) RBC- See comment [id number] rforme d at [place] [address]Toll Free: [phone] No. [id number] PRE SERUM (test code = 1637) No Icterus Noted Performed at [facility] Laboratory [place] [address]Toll Free: [phone] No. [id number] [facility]TRX[facility] [id number] 19:52:27* Test Item Value Reference Range Interpretation Comme nts CLERICAL CK (test code = 542) Acceptable Performed at [place] [address]Toll Free: [phone] No. [id number] POST ABO & RH (test code = 1616) O Positive Performed at [place] [address]Toll Free: [phone] No. [id number] POST CASI (test code = 1619) Negative Performed at [facility] Laboratory [place] [address]Toll Free: [phone] No. [id number] POST SERUM (test code = 1620) Slightly Icteric Performed at [place] [address]Toll Free: [phone] No. [id number] PRELIM RESULT (test code = 3962) Negative TxRxn Negative: No wilmer dence of a hemolytic transfusion reaction; Blood Bank physician interpretation to follow.Performed at [place] [address]Toll Free: [phone] No. [id number] PRODUCT (test code = 2110) RBC- See comment [id number] rforme d at [facility] Laboratory Services - [facility] Blood [address] [place], [place] [address]Toll Free: [phone] No. [id number] PRE SERUM (test code = 1637) No Icterus Noted Performed at [facility] Laboratory Services - [facility] Blood [address] Free: [phone] No. [id number] [facility] Hospital[facility]IT[facility]IN B12, [id number] 18:50:07* Test Item Value Reference Range Interpretation Comme nts VIT B12 (test code = 8868119491) 223 pg/mL 240-930 L BARTOLOME (test code = BARTOLOME) Biotin has been reported to cause a positive bias, interpret results relative to patient's use of biotin. Lab Interpretation (test code = 13461-4) Abnormal [facility] B12, [id number] 18:50:07* Test Item Value Reference Range Interpretation Comme nts VIT B12 (test code = 8927659434) 223 pg/mL 240-930 L BARTOLOME (test code = BARTOLOME) Biotin has been reported to cause a positive bias, interpret results relative to patient's use of biotin. Lab Interpretation (test code = 26056-4) Abnormal [facility]OL[facility]2022-[facility] 17:59:40* Test Item Value Reference Range Interpretation Comme nts FOLATE SER (test code = 8413439835) 13.3 ng/mL 3.0-20.0 Lab Interpretation (test cod e = 20458-3) Normal [facility] 17:59:40* Test Item Value Reference Range Interpretation Comme nts FOLATE SER (test code = 1508094570) 13.3 ng/mL 3.0-20.0 Lab Interpretation (test cod e = 20055-5) Normal [facility] HospitalPROCALCITONIN2022-02-10 17:56:33* Test Item Value Reference Range Interpretation Comme nts Procalcitonin (test code = 5231731404) 2.04 ng/mL <0.07 H BARTOLOME (test code [...] lung abscess/empyema. For further information please refer to:[email or web address] Lab Interpretation (test code = 48406-1) Abnormal [facility] HospitalPROCALCITONIN2022-02-10 17:56:33* Test Item Value Reference Range Interpretation Comme nts Procalcitonin (test code = 8181731906) 2.04 ng/mL <0.07 H BARTOLOME (test code [...] lung abscess/empyema. For further information please refer to:[email or web address] Lab Interpretation (test code = 54220-6) Abnormal [facility] HospitalFERRITIN [id number] 17:29:35* Test Item Value Reference Range Interpretation Comme nts FERRITIN (test code = 0730363373) 8.2 ng/mL 11.0-264.0 L BARTOLOME (test code = BARTOLOME) Biotin has been reported to cause a negative bias, interpret results relative to patient's use of biotin. Lab Interpretation (test code = 87736-0) Abnormal [facility] HospitalFERRITIN [id number] 17:29:35* Test Item Value Reference Range Interpretation Comme nts FERRITIN (test code = 9751300403) 8.2 ng/mL 11.0-264.0 L BARTOLOME (test code = BARTOLOME) Biotin has been reported to cause a negative bias, interpret results relative to patient's use of biotin. Lab Interpretation (test code = 00283-5) Abnormal [facility] Hospital[facility]IT[facility]IN D, [id number] 17:11:54* Test Item Value Reference Range Interpretation Comme nts VIT D 25OH (test code = 50232-6) 19 ng/mL 25-80 L BARTOLOME (test code = BARTOLOME) Deficiency: <20 ng/mLInsufficiency: 20-24 ng/mLOptimal: 25-80 ng/mL Lab Interpretation (test code = 24377-2) Abnormal [facility] D, [id number] 17:11:54* Test Item Value Reference Range Interpretation Comme nts VIT D 25OH (test code = 74489-3) 19 ng/mL 25-80 L BARTOLOME (test code = BARTOLOME) Deficiency: <20 ng/mLInsufficiency: 20-24 ng/mLOptimal: 25-80 ng/mL Lab Interpretation (test code = 05285-5) Abnormal [facility] HospitalLIPID PANEL (00746)(TOTAL CHOLESTEROL, TRIGLYCERIDES, HDL)2021-03-20 16:55:51* Test Item Value Reference Range Interpretation Comme nts CHOL (test code = 2707762887) 105 mg/dL 120-200 L HDL (test code = 5722669383) 30 mg/dL >50 L HDLC RATIO (test code = 8153741750) See_Comment [Automated Start[employer] Weekend] The system which generated this result transmitted reference range: <=4.5. The reference range was not used to interpret this result as normal/abnormal. TRIG (test code = 1956319266) 92 mg/dL 30-170 LDL CHOL (test code = 83039-5) 57 mg/dL See_Comment [Aasonn] The system which generated this result transmitted reference range: <=160. The reference range was not used to interpret this result as normal/abnormal. VLDL (test code = 2942845368) 18 mg/dL 5-60 Lab Interpretation (test code = 94392-2) Abnormal [facility] HospitalMAGNESIUM2022-02-10 16:55:51* Test Item Value Reference Range Interpretation Comme nts MAGNESIUM (test code = 6233613183) 2.3 mg/dL 1.7-2.4 Lab Interpretation (test cod e = 45820-6) Normal [facility] HospitalLIPID PANEL (15768)(TOTAL CHOLESTEROL, TRIGLYCERIDES, HDL)2021-03-20 16:55:51* Test Item Value Reference Range Interpretation Comme nts CHOL (test code = 9086489794) 105 mg/dL 120-200 L HDL (test code = 9460378138) 30 mg/dL >50 L HDLC RATIO (test code = 8773937946) See_Comment [Automated messa ge] The system which generated this result transmitted reference range: <=4.5. The reference range was not used to interpret this result as normal/abnormal. TRIG (test code = 5522360097) 92 mg/dL 30-170 LDL CHOL (test code = 18507-4) 57 mg/dL See_Comment [Automated messa ge] The system which generated this result transmitted reference range: <=160. The reference range was not used to interpret this result as normal/abnormal. VLDL (test code = 6806634727) 18 mg/dL 5-60 Lab Interpretation (test code = 50609-9) Abnormal [facility] HospitalMAGNESIUM2022-02-10 16:55:51* Test Item Value Reference Range Interpretation Comme nts MAGNESIUM (test code = 6307566787) 2.3 mg/dL 1.7-2.4 Lab Interpretation (test cod e = 85738-5) Normal [facility] HospitalSEDIMENTATION [id number] 10:47:10* Test Item Value Reference Range Interpretation Comme nts ESR (test code = 1616236680) See_Comment H [Automated messa ge] The system which generated this result transmitted reference range: 0 - 20 mm/HR. The reference range was not used to interpret this result as normal/abnormal. Lab Interpretation (test code = 19852-6) Abnormal [facility] [id number] 10:47:10* Test Item Value Reference Range Interpretation Comme nts ESR (test code = 0583586665) See_Comment H [Automated messa ge] The system which generated this result transmitted reference range: 0 - 20 mm/HR. The reference range was not used to interpret this result as normal/abnormal. Lab Interpretation (test code = 49373-1) Abnormal [facility] HospitalPROTHROMBIN TIME / [id number] 10:32:40* Test Item Value Reference Range Interpretation [...] the indications. Lab Interpretation (test code = 55160-7) Normal [facility] HospitalPROTHROMBIN TIME / [id number] 10:32:40* Test Item Value Reference Range Interpretation Comme nts PROTIME PATIENT (test code = 5964-2) See_Comment [Automated Start[employer] Weekend] The system which generated this result transmitted reference range: 12.0 - 14.7 Seconds. The reference range was not used to interpret this result as normal/abnormal. INR (test code = 6301-6) Normal INR <1.1; Warfarin Therapeutic range 2.0 to 3.0 or 2.5 to 3.5, depending upon the indications. Lab Interpretation (test code = 96710-2) Normal [facility] HospitalGLYCOSYLATED HEMOGLOBIN (A1C)2021-03-20 09:57:04HGB C3EPlpvkgm: Due to low hemoglobin, %A1C cannot be calculated.[facility] LABORATORYReference RangesNormal: <5.7%Prediabetes: 5.7 - 6.4%Diabetes: > 6.5%[facility] GLYCOSYLATED HEMOGLOBIN (A1C)2021-03-20 09:57:04HGB Q4PAudqngk: Due to low hemoglobin, %A1C cannot be calculated.[facility] LABORATOR YReference RangesNormal: <5.7%Prediabetes: 5.7 - 6.4%Diabetes: > 6.5%[facility] HospitalTROPONIN [id number] 04:37:22* Test Item Value Reference Range Interpretation Comments TROPONIN I (test code = 8612711901) 0.005 ng/mL See_Comment [Automated message] The system [...] of biotin. Lab Interpretation (test code = 98709-4) Normal [facility] HospitalTROPONIN [id number] 04:37:22* Test Item Value Reference Range Interpretation Comments TROPONIN I (test code = 3418200191) 0.005 ng/mL See_Comment [Automated message] The system [...] of biotin. Lab Interpretation (test code = 01268-0) Normal [facility] HospitalPrepare Packed RBC (in units), 1 Units 2021-03-20 04:36:09* Test Item Value Reference Range Interpretation Comme nts Cross Match Result (test code = 4409) Compatible ISBT Blood Type Code (test code = 778502) Unit Blood Type (test code = 4410) O Pos Unit Number (test code = 4411) [id number] Blood Expiration Date & Time (test code = 619513) Status Information (test code = 4412) Issued Product Identification (test code = 4413) Red Blood Cells Product Code (test code = 4414) [id number] Performed at [facility] Blood [address] [place], [place] [address]Toll Free: [phone] No. [id number] [facility] HospitalPrepare Packed RBC (in units), 1 Units 2021-03-20 04:36:09* Test Item Value Reference Range Interpretation Comme nts Cross Match Result (test code = 4409) Compatible ISBT Blood Type Code (test code = 223270) Unit Blood Type (test code = 4410) O Pos Unit Number (test code = 4411) [id number] Blood Expiration Date & Time (test code = 615165) Status Information (test code = 4412) Issued Product Identification (test code = 4413) Red Blood Cells Product Code (test code = 4414) [id number] Performed at [facility] Blood [place] [address]Toll Free: [phone] No. [id number] [facility] [id number] 04:32:19* Test Item Value Reference Range Interpretation Comme nts IRON (test code = 3652212051) 30 ug/dL 50-160 L TIBC (test code = 7474313878) 537 ug/dL 250-410 H % FE SAT (test code = 1610151615) 6 % 20-50 L Lab Interpretation (test cod e = 87270-3) Abnormal [facility] [id number] 04:32:19* Test Item Value Reference Range Interpretation Comme nts IRON (test code = 3160530410) 30 ug/dL 50-160 L TIBC (test code = 0911729511) 537 ug/dL 250-410 H % FE SAT (test code = 2252623036) 6 % 20-50 L Lab Interpretation (test cod e = 46886-0) Abnormal [facility] HospitalType and Screen - ONCE [id number] 04:24:44 * Test Item Value Reference Range Interpretation Comme nts ABO & RH (test code = 20) O Positive Performed at [facility] Blood [address] [place], [place] [address]Toll Free: [phone] No. [id number] IAT (test code = 1185) Negative Performed at [facility] Laboratory [facility] Blood [address] Free: [phone] No. [id number] [facility] HospitalType and Screen - ONCE [id number] 04:24:44 * Test Item Value Reference Range Interpretation Comme nts ABO & RH (test code = 20) O Positive Performed at [facility] Blood [address] Free: [phone] No. [id number] IAT (test code = 1185) Negative Performed at [facility] Blood [address] Free: [phone] No. [id number] [facility] HospitalCBC WITH [id number] 03:31:38* Test Item Value Reference Range Interpretation [...] g/dL 31.6-35.1 L RDW-SD (test code = 15487-2) 45.5 fL 39.0-49.9 RDW-CV (test code = 788-0) 19.2 % 12.0-15.5 H PLT (test code = 777-3) See_Comment L [Automated Instant Opiniona ge] The system which generated this result transmitted reference range: 166 - 358 10*3/?L. The reference range was not used to interpret this result as normal/abnormal. MPV (test code = 48408-4) Not Measured IPF % (test code = 8136663302) 5.9 % 1.3-7.7 Platelet count measured by fluorescence method. NRBC/100 WBC (test code = 3351414204) See_Comment [Automated Storie ssage] The system which generated this result transmitted reference range: 0.0 - 10.0 /100 WBCs. The reference range was not used to interpret this result as normal/abnormal. NRBC x10^3 (test code = 6175323122) <0.01 See_Comment [Automated Instant Opiniona ge] The system which generated this result transmitted reference range: 10*3/?L. The reference range was not used to interpret this result as normal/abnormal. GRAN MAT (NEUT) % (test code = 770-8) 77.8 % IMM GRAN % (test code = 1367824698) 0.20 % LYMPH % (test code = 736-9) 13.1 % MONO % (test code = 5905-5) 8.2 % EOS % (test code = 713-8) 0.0 % BASO % (test code = 706-2) 0.7 % GRAN MAT x10^3(ANC) (test code = 9547150500) 3.49 10*3/uL 1.88-7.09 IMM GRAN x10^3 (test code = 7846290829) <0.03 0.00-0.06 LYMPH x10^3 (test code = 731-0) 0.59 10*3/uL 1.32-3.29 L MONO x10^3 (test code = 742-7) 0.37 10*3/uL 0.33-0.92 EOS x10^3 (test code = 711-2) <0.03 0.03-0.39 L BASO x10^3 (test code = 704-7) 0.03 10*3/uL 0.01-0.07 POLYCHROMASIA (test code = 09432-1) 2+ See_Comment [Automated messa ge] The system [...] as normal/abnormal. Lab Interpretation (test code = 18800-9) Abnormal [facility] WITH [id number] 03:31:38* Test Item Value Reference Range Interpretation [...] g/dL 31.6-35.1 L RDW-SD (test code = 05811-0) 45.5 fL 39.0-49.9 RDW-CV (test code = 788-0) 19.2 % 12.0-15.5 H PLT (test code = 777-3) See_Comment L [Automated messa ge] The system which generated this result transmitted reference range: 166 - 358 10*3/?L. The reference range was not used to interpret this result as normal/abnormal. MPV (test code = 84289-2) Not Measured IPF % (test code = 2243128901) 5.9 % 1.3-7.7 Platelet count measured by fluorescence method. NRBC/100 WBC (test code = 7363841876) See_Comment [Automated Storie ssage] The system which generated this result transmitted reference range: 0.0 - 10.0 /100 WBCs. The reference range was not used to interpret this result as normal/abnormal. NRBC x10^3 (test code = 1085914612) <0.01 See_Comment [Automated Instant Opiniona ge] The system which generated this result transmitted reference range: 10*3/?L. The reference range was not used to interpret this result as normal/abnormal. GRAN MAT (NEUT) % (test code = 770-8) 77.8 % IMM GRAN % (test code = 4107494872) 0.20 % LYMPH % (test code = 736-9) 13.1 % MONO % (test code = 5905-5) 8.2 % EOS % (test code = 713-8) 0.0 % BASO % (test code = 706-2) 0.7 % GRAN MAT x10^3(ANC) (test code = 2185284248) 3.49 10*3/uL 1.88-7.09 IMM GRAN x10^3 (test code = 8504671337) <0.03 0.00-0.06 LYMPH x10^3 (test code = 731-0) 0.59 10*3/uL 1.32-3.29 L MONO x10^3 (test code = 742-7) 0.37 10*3/uL 0.33-0.92 EOS x10^3 (test code = 711-2) <0.03 0.03-0.39 L BASO x10^3 (test code = 704-7) 0.03 10*3/uL 0.01-0.07 POLYCHROMASIA (test code = 27233-8) 2+ See_Comment [Automated Instant Opiniona ge] The system which generated this result transmitted reference range: 2+. The reference range was not used to interpret this result as normal/abnormal. SPHEROCYTES (test code = 802-9) 1+ A GIANT PLATELETS (test code = 5908-9) Present See_Comment A [Automated Instant Opiniona Data [employer]ition] The system which generated this result transmitted reference range: (none). The reference range was not used to interpret this result as normal/abnormal. Lab Interpretation (test code = 51838-0) Abnormal [facility]. METABOLIC PANEL (42481)2021-03-20 02:59:47* Test Item Value Reference Range Interpretation Comme nts NA (test code = 2397072711) 134 mmol/L 135-145 L K (test code = 8416506430) 3.8 mmol/L 3.5-5.0 CL (test code = 1208931605) 104 mmol/L 98-108 CO2 TOTAL (test code = 5282068439) 19 mmol/L 23-31 L AGAP (test code = 4498887039) 2-16 BUN (test code = 5241781197) 7 mg/dL 7-23 GLUCOSE (test code = 7772941406) 116 mg/dL 70-110 H CREATININE (test code = 4447278607) 0.73 mg/dL 0.50-1.04 TOTAL BILI (test code = 0902044071) 1.3 mg/dL 0.1-1.1 H CALCIUM (test code = 8976957027) 8.7 mg/dL 8.6-10.6 T PROTEIN (test code = 3684766675) 7.8 g/dL 6.3-8.2 ALBUMIN (test code = 6273465055) 4.4 g/dL 3.5-5.0 ALK PHOS (test code = 6885063236) 119 U/L 34-122 ALTv (test code = 1742-6) 25 U/L 5-35 AST(SGOT) (test code = 6169222870) 36 U/L 13-40 eGFR (test code = 6392846169) mL/min/1.73m2 BARTOLOME (test code = BARTOLOME) Association [...] imaging tests). Lab Interpretation (test code = 36278-4) Abnormal [facility]. METABOLIC PANEL (53051)2021-03-20 02:59:47* Test Item Value Reference Range Interpretation Comme nts NA (test code = 2929123577) 134 mmol/L 135-145 L K (test code = 9334377800) 3.8 mmol/L 3.5-5.0 CL (test code = 1965244740) 104 mmol/L 98-108 CO2 TOTAL (test code = 2373159586) 19 mmol/L 23-31 L AGAP (test code = 8855407296) 2-16 BUN (test code = 3133259926) 7 mg/dL 7-23 GLUCOSE (test code = 5874424768) 116 mg/dL 70-110 H CREATININE (test code = 9434895786) 0.73 mg/dL 0.50-1.04 TOTAL BILI (test code = 0506105541) 1.3 mg/dL 0.1-1.1 H CALCIUM (test code = 2200851919) 8.7 mg/dL 8.6-10.6 T PROTEIN (test code = 5992140779) 7.8 g/dL 6.3-8.2 ALBUMIN (test code = 9049413894) 4.4 g/dL 3.5-5.0 ALK PHOS (test code = 8573989083) 119 U/L 34-122 ALTv (test code = 1742-6) 25 U/L 5-35 AST(SGOT) (test code = 8714845169) 36 U/L 13-40 eGFR (test code = 8454239878) mL/min/1.73m2 BARTOLOME (test code = BARTOLOME) Association [...] imaging tests). Lab Interpretation (test code = 36285-8) [facility] Test Item Value Reference Range Interpretation Comme nts LIPASE (test code = 3114202400) 135 U/L 0-220 Lab Interpretation (test cod e = 82810-3) [facility]* Test Item Value Reference Range Interpretation Comme nts LIPASE (test code = 6465446747) 135 U/L 0-220 Lab Interpretation (test cod e = 61203-2) [id number] 02:23:00* Test Item Value Reference Range Interpretation Comme nts POCT PREG (test code = 1605) negative On board controls acceptable with C Line (test code = 3574) present POCT PREG LOT # (test code = 3575) [id number] POCT PREG TEST DATE ( test code = 3576) 2022-04-07 Lab Interpretation (test cod e = 55976-0) [id number] 02:23:00* Test Item Value Reference Range Interpretation Comme nts POCT PREG (test code = 1605) negative On board controls acceptable with C Line (test code = 3574) present POCT PREG LOT # (test code = 3575) [id number] POCT PREG TEST DATE ( test code = 3576) 2022-04-07 Lab Interpretation (test cod e = 26383-3) [facility]"
[2023-10-07] MEDS ORDERED: KETOROLAC 30 MG/ML INJ ONE (03:32)
--- NOTE | 2023-10-07 03:32 | ER ---
Nurse's Notes [facility] Name: Shari Palumbo Age: 53 yrs Sex: Female : 1970 Arrival Date: 10/07/2023 Time: 02:37 Bed 13 Private MD: Diagnosis: Dental caries, unspecified;Dental root caries Presentation: 10/06 03:02 Chief complaint: Patient states: I have been having tooth pain since last week. My jb4 dentist cannot see me until the . Coronavirus screen: At this time, the client does not indicate any symptoms associated with coronavirus-19. Ebola Screen: No symptoms or risks identified at this time. Initial Sepsis Screen: Does the patient meet any 2 criteria? No. Patient's initial sepsis screen is negative. Does the patient have a suspected source of infection? No. Patient's initial sepsis screen is negative. Risk Assessment: Do you want to hurt yourself or someone else? Patient reports no desire to harm self or others. Onset of symptoms was September 30, 2023. Transition of care: patient was not received from another setting of care. 03:02 Method Of Arrival: Ambulatory jb4 03:02 Acuity: ARELI 4 jb4 Triage Assessment: 03:03 General: Appears in no apparent distress. uncomfortable, Behavior is calm, cooperative. jb4 Pain: Complains of pain in upper right first bicuspid Pain does not radiate. Pain currently is 10 out of 10 on a pain scale. EENT: Reports pain in mouth. MANAGER POLICY: 03:45 LMP N/A - , Not rg5 Historical: - Allergies: 03:03 PENICILLINS; jb4 - PMHx: 03:03 None; jb4 - PSHx: 03:03 None; jb4 - Immunization history:: Adult Immunizations up to date. - Infectious Disease History:: Denies. - Social history:: Smoking status: Patient denies any tobacco usage or history of. Patient/guardian denies using alcohol, street drugs. - Family history:: not pertinent. Screenin:39 [facility] ED Fall Risk Assessment (Adult) History of falling in the last 3 months, rg5 including since admission No falls in past 3 months (0 pts) Confusion or Disorientation No (0 pts) Intoxicated or Sedated No (0 pts) Impaired Gait No (0 pts) Mobility Assist Device Used No (0 pt) Altered Elimination No (0 pt) Score/Fall Risk Level 0 - 2 = Low Risk. 03:39 Abuse screen: Denies threats or abuse. Nutritional screening: No deficits noted. rg5 Tuberculosis screening: No symptoms or risk factors identified. Assessment: 03:39 General: Appears uncomfortable, Behavior is calm, cooperative, appropriate for age. rg5 Pain: Complains of pain in right upper molar teeth Pain currently is 10 out of 10 on a pain scale. Quality of pain is described as aching, Pain began 1 day ago. Neuro: Level of Consciousness is awake, alert, obeys commands, Oriented to person, place, time. Cardiovascular: Denies chest pain, shortness of breath. Respiratory: Airway is patent Trachea midline Respiratory effort is even, unlabored, Respiratory pattern is regular, symmetrical. GI: Abdomen is flat, round non-distended, Abd is soft and non tender. : No signs and/or symptoms were reported regarding the genitourinary system. EENT: Reports pain in toothache. Derm: Skin is intact, Skin is dry, Skin is normal, Skin temperature is warm. Musculoskeletal: Range of motion: intact in all extremities. Vital Signs: 03:02 BP 179 / 99; Pulse 70; Resp 16; Temp 96.9(TE); Pulse Ox 100% on R/A; Weight 74.84 kg jb4 (R); Height 5 ft. 2 in. ; Pain 10/10; 03:46 BP 178 / 99; Pulse 70; Resp 16; Temp 98.3; Pulse Ox 100% on R/A; Pain 10/10; rg5 03:02 Body Mass Index 30.18 (74.84 kg, 157.48 cm) jb4 03:02 Pain Scale: Adult jb4 03:46 Pain Scale: Adult rg5 ED Course: 02:39 Patient arrived in ED. jj6 02:47 Vel Zamarripa MD is Attending Physician. [facility] 03:03 Triage completed. jb4 03:03 Arm band placed on right wrist. jb4 03:25 Chris Raymond, YASMINE is Primary Nurse. rg5 03:39 Patient has correct armband on for positive identification. Call light in reach. Side rg5 rails up X 1. 03:39 No provider procedures requiring assistance completed. Patient did not have IV access rg5 during this emergency room visit. 04:00 Provided Education on: post er care. rg5 Administered Medications: 03:30 Drug: Ketorolac IM 60 mg IM once Route: IM; Site: left gluteus; rg5 03:49 Follow up: Response: No adverse reaction; Pain is decreased rg5 03:30 Drug: Clindamycin PO 300 mg PO once Route: PO; rg5 03:49 Follow up: Response: No adverse reaction rg5 03:48 Not Given (meds not availablee): [id number] mg IM once rg5 Medication: 03:39 VIS not applicable for this client. rg5 Outcome: 03:31 Discharge ordered by MD. conley 04:00 Discharged to home ambulatory, rg5 04:00 Condition: stable 04:00 Discharge instructions given to patient, Instructed on discharge instructions, follow up and referral plans. Demonstrated understanding of instructions, Prescriptions given X 3, 04:00 Patient left the ED. rg5 Signatures: Vel Zamarripa MD MD cha Bryson, James, RN RN jb4 Colleen Maoj6 Chris Raymond, YASMINE RN rg5 Corrections: (The following items were deleted from the chart) 04:57 04:56 Patient left the ED. rg5 rg5
--- NOTE | 2023-10-07 03:32 | EDPHYS ---
Physician Documentation [facility] Name: Shari Palumbo Age: 53 yrs Sex: Female : 1970 Arrival Date: 10/07/2023 Time: 02:37 Bed 13 Private MD: ED Physician Vel Zamarripa HPI: 10/06 03:25 This 53 yrs old Female presents to ER via Ambulatory with complaints of yael Toothache. 03:25 The patient presents with broken tooth/teeth, pain, redness, swelling. The problem is yael located in the upper right first molar and upper right second bicuspid. Onset: The symptoms/episode began/occurred 3 day(s) ago. Duration: The symptoms are continuous, and are steadily getting worse. Modifying factors: The symptoms are alleviated by over the counter medications, NSAIDs, the symptoms are aggravated by air, chewing, cold fluids, food. Associated signs and symptoms: The patient has no apparent associated signs or symptoms. Severity of symptoms: At their worst the symptoms were moderate, in the emergency department the symptoms have improved, mildly. The patient has not experienced similar symptoms in the past. 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 - Infectious Disease History:: Denies. - Social history:: Smoking status: Patient denies any tobacco usage or history of. Patient/guardian denies using alcohol, street drugs. - Family history:: not pertinent. ROS: 03:25 Constitutional: Negative for fever, chills, and weight loss, Eyes: Negative for injury, yael pain, redness, and discharge, Neck: Negative for injury, pain, and swelling, Cardiovascular: Negative for chest pain, palpitations, and edema, Respiratory: Negative for shortness of breath, cough, wheezing, and pleuritic chest pain, Abdomen/GI: Negative for abdominal pain, nausea, vomiting, diarrhea, and constipation, Back: Negative for injury and pain, : Negative for injury, bleeding, discharge, and swelling, MS/Extremity: Negative for injury and deformity, Skin: Negative for injury, rash, and discoloration, Neuro: Negative for headache, weakness, numbness, tingling, and seizure, Psych: Negative for depression, anxiety, suicide ideation, homicidal ideation, and hallucinations, Allergy/Immunology: Negative for hives, rash, and allergies, Endocrine: Negative for neck swelling, polydipsia, polyuria, polyphagia, and marked weight changes, Hematologic/Lymphatic: Negative for swollen nodes, abnormal bleeding, and unusual bruising, 03:25 ENT: Positive for Teeth pain Exam: 03:25 Constitutional: This is a well developed, well nourished patient who is awake, alert, yael and in no acute distress. Head/Face: Normocephalic, atraumatic. Eyes: Pupils equal round and reactive to light, extra-ocular motions intact. Lids and lashes normal. Conjunctiva and sclera are non-icteric and not injected. Cornea within normal limits. Periorbital areas with no swelling, redness, or edema. Neck: Trachea midline, no thyromegaly or masses palpated, and no cervical lymphadenopathy. Supple, full range of motion without nuchal rigidity, or vertebral point tenderness. No Meningismus. Chest/axilla: Normal chest wall appearance and motion. Nontender with no deformity. No lesions are appreciated. Cardiovascular: Regular rate and rhythm with a normal S1 and S2. No gallops, murmurs, or rubs. Normal PMI, no JVD. No pulse deficits. Respiratory: Lungs have equal breath sounds bilaterally, clear to auscultation and percussion. No rales, rhonchi or wheezes noted. No increased work of breathing, no retractions or nasal flaring. Abdomen/GI: Soft, non-tender, with normal bowel sounds. No distension or tympany. No guarding or rebound. No evidence of tenderness throughout. Back: No spinal tenderness. No costovertebral tenderness. Full range of motion. Skin: Warm, dry with normal turgor. Normal color with no rashes, no lesions, and no evidence of cellulitis. MS/ Extremity: Pulses equal, no cyanosis. Neurovascular intact. Full, normal range of motion. Neuro: Awake and alert, GCS 15, oriented to person, place, time, and situation. Cranial nerves II-XII grossly intact. Motor strength 5/5 in all extremities. Sensory grossly intact. Cerebellar exam normal. Normal gait. Psych: Awake, alert, with orientation to person, place and time. Behavior, mood, and affect are within normal limits. 03:25 ENT: Mouth: Oral mucosa: moist, Gums: normal with healthy appearance, Tongue: is normal, abscess, is not appreciated, drooling, is not appreciated, Vital Signs: 03:02 BP 179 / 99; Pulse 70; Resp 16; Temp 96.9(TE); Pulse Ox 100% on R/A; Weight 74.84 kg jb4 (R); Height 5 ft. 2 in. ; Pain 10/10; 03:46 BP 178 / 99; Pulse 70; Resp 16; Temp 98.3; Pulse Ox 100% on R/A; Pain 10/10; rg5 03:02 Body Mass Index 30.18 (74.84 kg, 157.48 cm) jb4 03:02 Pain Scale: Adult jb4 03:46 Pain Scale: Adult rg5 MDM: 02:47 Patient medically screened. [facility] 03:25 Differential diagnosis: dental caries, gingivitis, dental abscess. Data reviewed: vital yael signs, nurses notes. Consideration of Admission/Observation Escalation of care including admission/observation considered. I considered the following discharge prescriptions or medication management in the emergency department Medications were administered in the Emergency Department. See MAR. Test considered but Not performed: Labs: no labs. Historians other than the Patient: pt well informed. Care significantly affected by the following chronic conditions: none, poor dentention. Counseling: I had a detailed discussion with the patient and/or guardian regarding the historical points, exam findings, and any diagnostic results supporting the discharge/admit diagnosis, the presence of at least one elevated blood pressure reading (>120/80) during this emergency department visit, lab results, the need for outpatient follow up, for definitive care, a dentist, an oral maxilofacial specialist. Administered Medications: 03:30 Drug: Ketorolac IM 60 mg IM once Route: IM; Site: left gluteus; rg5 03:49 Follow up: Response: No adverse reaction; Pain is decreased rg5 03:30 Drug: Clindamycin PO 300 mg PO once Route: PO; rg5 03:49 Follow up: Response: No adverse reaction rg5 03:48 Not Given (meds not availablee): [id number] mg IM once rg5 Disposition Summary: 10/07/23 03:31 Discharge Ordered Notes: Location: Home [facility] Problem: new yael Symptoms: have improved yael Condition: Stable yael Diagnosis - Dental caries, unspecified yael - Dental root caries yael Followup: yael - With: Private Physician - When: 2 - 3 days - Reason: Recheck today's complaints, Continuance of care, Re-evaluation by your physician Discharge Instructions: - Discharge Summary Sheet yael - Dental Caries, Adult yael - Dental Pain yael - Dental Pain, [id number] [facility] - Diet and Dental Disease yael - Dental Caries, Adult, [id number] [facility] Forms: - Medication Reconciliation Form [facility] - Antibiotic Education [facility] - Prescription Opioid Use [facility] - Patient Portal Instructions [facility] - Leadership Thank You Letter [facility] Prescriptions: - acetaminophen-codeine 300-30 mg Oral tablet - take 2 tablet ORAL route every 6 hours; 20 tablet; Refills: 0, Product [facility] Selection Permitted - Clindamycin HCl 150 mg Oral capsule - take 2 capsule ORAL route every 6 hours for 7 days; 56 capsule; Refills: 0, [facility] Product Selection Permitted - Ibuprofen 600 mg Oral tablet - take 1 tablet ORAL route every 6 hours As needed take with food; 20 tablet; [facility] Refills: 0, Product Selection Permitted Signatures: Vel Zamarripa MD MD cha Bryson, James, RN RN jb4 Chris Raymond RN RN rg5
[2023-10-07 05:07] VITALS: O2SAT 100
[2023-10-07 05:15] VITALS: BP 178/99; TEMP 98.3
== END 2023-10-07 04:56 | disposition home or self-care (01) ==
LOC: ER 02:37
DX: K02.9 Dental caries, unspecified (principal); K02.7 Dental root caries
CPT/HCPCS: 96372; 99284